=== PATIENT | male | born 1950 | race Caucasian/White ===

== ENCOUNTER 2022-11-04 11:22 | Outpatient (CLI) | payer MEDICARE, SELFPAY ==
--- NOTE | ~2022-11-04 | XR_ITS ---
XR hip LT min 2V DATE: 11/04/2022 11:36 INDICATION: Left hip pain, chronic TECHNIQUE: AP and lateral views of left hip COMPARISON: None FINDINGS: There is a left acetabular and femoral head spurring consistent with moderately prominent l eft hip osteoarthritis. No fracture or dislocation, avascular necrosis or bone destruction is detected. IMPRESSION: Moderately prominent left hip osteoarthritis Reviewed, dictated and finalized at location L. MATION TESTER
[2022-11-04 19:03] LABS: Basophils Absolute Auto 0.1 K/mm3 (0.0-0.1); Basophils Percent Auto 1.2 % (0.2-1.2); Eosinophils Absolute Auto 0.3 K/mm3 (0-0.3); Eosinophils Percent Auto 3.4 % (0-4.4); Hematocrit 51.3 % (42.0-52.0); Immature Granulocyte Absolute 0.01 K/mm3 (0.00-0.031); Immature Granulocyte Percent A 0.1 % (0-0.5); Immature Platelet Fraction Pct 15.6 % (0.9-11.2); Lymphocytes Absolute Auto 1.87 K/mm3 (0.9-3.2); Lymphocytes Percent Auto 22.5 % (18.3-44.2); Mean Corpuscular HGB Conc 31.2 g/dl (32-36); Mean Corpuscular Hemoglobin 29.1 pg (26-34); Mean Corpuscular Volume 93.4 fl (80-100); Mean Platelet Volume 13.1 fl (7.4-10.4); Monocytes Absolute Auto 0.6 K/mm3 (0.1-0.6); Monocytes Percent Auto 6.9 % (2.6-8.5); Neutrophils Absolute Auto 5.5 K/mm3 (1.3-6.7); Neutrophils Percent Auto 65.9 % (45.5-73.1); Platelet Count Result 44 k/mm3 (150-375); Red Blood Count 5.49 M/mm3 (4.6-6.20); Red Cell Distribution Width 13.6 % (11.5-14.5); White Blood Count 8.3 K/mm3 (4.5-10.0)
[2022-11-04 20:34] LABS: Cholesterol 150 mg/dL (0-200); HDL Direct 40 mg/dL; Triglycerides 153 mg/dL (<150)
[2022-11-04 20:45] LABS: LDL Cholesterol Direct 74 mg/dL
[2022-11-04 21:05] LABS: Alanine Aminotransferase 30 U/L (6-50); Albumin Level 4.4 g/dL (3.5-5.1); Alkaline Phosphatase 55 U/L (38-126); Anion Gap 4 mmol/L (8-16); Aspartate Amino Transferase 40 U/L (17-59); Bilirubin,Total 0.8 mg/dL (0.2-1.3); Blood Urea Nitrogen 11 mg/dL (9-20); Calcium 9.2 mg/dL (8.4-10.2); Carbon Dioxide 33 mmol/L (22-30); Chloride 102 mmol/L (98-107); Estimated Glomerular Filt Rate > 60; Glucose 94 mg/dL (65-110); Potassium 4.4 mmol/L (3.4-5.0); Sodium 139 mmol/L (137-145)
== END 2022-11-04 11:23 | disposition home or self-care (01) ==
PROVIDERS: PCP Family Medicine; Visit Provider Family Medicine
DX: M16.12 Unilateral primary osteoarthritis, left hip (principal); Z12.5 Encounter for screening for malignant neoplasm of prostate; E78.5 Hyperlipidemia, unspecified
CPT/HCPCS: 36415; 73502; 80053; 80061; 84153; 85025; 85055; G0103

== ENCOUNTER 2022-12-04 08:26 | Outpatient (CLI) | payer MEDICARE, SELFPAY ==
[2022-12-04 18:42] LABS: Basophils Absolute Auto 0.1 K/mm3 (0.0-0.1); Eosinophils Absolute Auto 0.2 K/mm3 (0-0.3); Eosinophils Percent Auto 2.4 % (0-4.4); Hemoglobin 16.2 g/dL (14.0-18.0); Immature Granulocyte Absolute 0.03 K/mm3 (0.00-0.031); Immature Granulocyte Percent A 0.3 % (0-0.5); Immature Platelet Fraction Pct 18.7 % (0.9-11.2); Lymphocytes Absolute Auto 2.29 K/mm3 (0.9-3.2); Lymphocytes Percent Auto 23.5 % (18.3-44.2); Mean Corpuscular HGB Conc 31.2 g/dl (32-36); Mean Corpuscular Hemoglobin 29.1 pg (26-34); Mean Corpuscular Volume 93.4 fl (80-100); Mean Platelet Volume 13.8 fl (7.4-10.4); Monocytes Absolute Auto 0.6 K/mm3 (0.1-0.6); Monocytes Percent Auto 6.1 % (2.6-8.5); Neutrophils Absolute Auto 6.5 K/mm3 (1.3-6.7); Neutrophils Percent Auto 66.7 % (45.5-73.1); Red Blood Count 5.57 M/mm3 (4.6-6.20); Red Cell Distribution Width 13.9 % (11.5-14.5); White Blood Count 9.8 K/mm3 (4.5-10.0)
[2022-12-04 19:41] LABS: Hepatitis B Surface Antigen Negative (Negative); Platelet Estimate Decreased (Adequate); Schistocytes None Seen (NORMAL)
[2022-12-04 19:46] LABS: HAV RESULT Negative (Negative); Hepatitis B Core IgM Result Negative (Negative)
[2022-12-04 19:58] LABS: Hepatitis C Virus Antibody Negative (Negative)
[2022-12-05 11:34] LABS: Platelet Count Result 22 k/mm3 (150-375)
[2022-12-08 13:02] LABS: HIV 1 2 Ag Ab 4th Gen w Rflxs Nonreactive (Nonreactive)
[2022-12-10 12:56] LABS: Testosterone Free 50.1 pg/mL (30.0-135.0); Testosterone Total 404 ng/dL (250-1100)
== END 2022-12-04 08:27 | disposition home or self-care (01) ==
PROVIDERS: PCP Family Medicine; Visit Provider Family Medicine
DX: R68.82 Decreased libido (principal); D69.6 Thrombocytopenia, unspecified; R10.13 Epigastric pain
CPT/HCPCS: 36415; 80074; 84402; 84403; 85025; 85055; 87389

== ENCOUNTER 2022-12-15 07:37 | Outpatient (CLI) | payer MEDICARE, SELFPAY ==
[2022-12-15 19:02] LABS: Basophils Absolute Auto 0.1 K/mm3 (0.0-0.1); Eosinophils Absolute Auto 0.2 K/mm3 (0-0.3); Eosinophils Percent Auto 2.6 % (0-4.4); Hematocrit 51.5 % (42.0-52.0); Hemoglobin 16.2 g/dL (14.0-18.0); Immature Granulocyte Absolute 0.03 K/mm3 (0.00-0.031); Immature Granulocyte Percent A 0.3 % (0-0.5); Immature Platelet Fraction Pct 17.9 % (0.9-11.2); Lymphocytes Absolute Auto 1.88 K/mm3 (0.9-3.2); Lymphocytes Percent Auto 20.3 % (18.3-44.2); Mean Corpuscular HGB Conc 31.5 g/dl (32-36); Mean Corpuscular Hemoglobin 28.9 pg (26-34); Mean Corpuscular Volume 91.8 fl (80-100); Mean Platelet Volume 13.1 fl (7.4-10.4); Monocytes Absolute Auto 0.5 K/mm3 (0.1-0.6); Monocytes Percent Auto 5.4 % (2.6-8.5); Neutrophils Absolute Auto 6.5 K/mm3 (1.3-6.7); Neutrophils Percent Auto 70.4 % (45.5-73.1); Platelet Count Result 31 k/mm3 (150-375); Red Blood Count 5.61 M/mm3 (4.6-6.20); Red Cell Distribution Width 13.9 % (11.5-14.5); White Blood Count 9.2 K/mm3 (4.5-10.0)
[2022-12-15 19:52] LABS: Alanine Aminotransferase 37 U/L (6-50); Albumin Level 4.2 g/dL (3.5-5.1); Alkaline Phosphatase 55 U/L (38-126); Anion Gap 4 mmol/L (8-16); Aspartate Amino Transferase 51 U/L (17-59); Bilirubin,Total 0.8 mg/dL (0.2-1.3); Blood Urea Nitrogen 11 mg/dL (9-20); Calcium 8.8 mg/dL (8.4-10.2); Carbon Dioxide 33 mmol/L (22-30); Chloride 101 mmol/L (98-107); Estimated Glomerular Filt Rate > 60; Glucose 96 mg/dL (65-110); Potassium 4.4 mmol/L (3.4-5.0); Sodium 138 mmol/L (137-145)
[2022-12-15 20:06] LABS: Iron 139 ug/dL (49-181)
[2022-12-15 20:25] LABS: Percent Iron Saturation 41 % (20-50)
[2022-12-15 20:53] LABS: Folic Acid 16.4 ng/mL (2.76->20)
[2022-12-21 18:21] LABS: Platelet Ab,Indirect (IgA) NEGATIVE (NEGATIVE); Platelet Ab,Indirect (IgG) NEGATIVE (NEGATIVE); Platelet Ab,Indirect (IgM) NEGATIVE (NEGATIVE)
== END 2022-12-15 07:38 | disposition home or self-care (01) ==
PROVIDERS: PCP Family Medicine; Visit Provider Internal Medicine Hematology & Oncology
DX: D69.59 Other secondary thrombocytopenia (principal)
CPT/HCPCS: 36415; 80053; 82607; 82728; 82746; 83540; 83550; 85025; 85055; 86022

== ENCOUNTER 2023-01-08 07:55 | Outpatient (CLI) | payer MEDICARE, SELFPAY ==
--- NOTE | ~2023-01-08 | US_ITS ---
US abdomen complete EXAMINATION: US Abdomen Complete INDICATION: Thrombocytopenia PROCEDURE: Realtime High Resolution abdomen ultrasound. COMPARISON: No prior studies for comparison FINDINGS: Gallbladder within normal limits. No gallstones, pericholecystic fluid, gallbladder wall t hickening or biliary dilatation. Common bile duct measures 4 mm. Liver echotexture is increased, consistent with fatty infiltration.. Pancreas within normal limits. Pancreatic tail is obscured by bowel gas. Spleen is unremarkeable. Renal echotexture is within norm al limits bilaterally without hydronephrosis, contour deforming mass or renal stone. There is a 1.7 c m cyst at the upper pole of the right kidney. Right kidney measures 10.5 cm. Left kidney measures 11. 6 cm. There is a 3 cm infrarenal abdominal aortic aneurysm.. Portal vein is patent. No sonographic Barrios's sign indicated by the technologist. IMPRESSION: 1: Infrarenal abdominal aortic aneurysm measuring 3 cm. 2: Hepatic steatosis. Reviewed, dictated and finalized at location .
== END 2023-01-08 07:56 | disposition home or self-care (01) ==
PROVIDERS: PCP Family Medicine; Visit Provider Internal Medicine Hematology & Oncology
DX: D69.59 Other secondary thrombocytopenia (principal); K76.0 Fatty (change of) liver, not elsewhere classified; I71.43 Infrarenal abdominal aortic aneurysm, without rupture
CPT/HCPCS: 36415; 76700; 80053; 82607; 82728; 82746; 83540; 83550; 85025; 85055; 86023

== ENCOUNTER 2023-01-08 09:00 | Outpatient (CLI) | payer MEDICARE, SELFPAY ==
[2023-01-08 09:24] LABS: White Blood Count 9.9 K/mm3 (4.5-10.0)
[2023-01-08 09:25] LABS: Basophils Absolute Auto 0.1 K/mm3 (0.0-0.1); Basophils Percent Auto 0.8 % (0.2-1.2); Eosinophils Absolute Auto 0.4 K/mm3 (0-0.3); Eosinophils Percent Auto 3.9 % (0-4.4); Hematocrit 47.8 % (42.0-52.0); Hemoglobin 15.4 g/dL (14.0-18.0); Immature Granulocyte Absolute 0.02 K/mm3 (0.00-0.031); Immature Granulocyte Percent A 0.2 % (0-0.5); Immature Platelet Fraction Pct 15.2 % (0.9-11.2); Lymphocytes Absolute Auto 2.13 K/mm3 (0.9-3.2); Lymphocytes Percent Auto 21.5 % (18.3-44.2); Mean Corpuscular HGB Conc 32.2 g/dl (32-36); Mean Corpuscular Hemoglobin 29.2 pg (26-34); Mean Corpuscular Volume 90.7 fl (80-100); Mean Platelet Volume 12.8 fl (7.4-10.4); Monocytes Absolute Auto 0.7 K/mm3 (0.1-0.6); Monocytes Percent Auto 6.7 % (2.6-8.5); Neutrophils Absolute Auto 6.6 K/mm3 (1.3-6.7); Neutrophils Percent Auto 66.9 % (45.5-73.1); Platelet Count Result 34 k/mm3 (150-375); Red Blood Count 5.27 M/mm3 (4.6-6.20); Red Cell Distribution Width 13.2 % (11.5-14.5)
[2023-01-08 10:03] LABS: Alanine Aminotransferase 35 U/L (6-50); Albumin Level 4.3 g/dL (3.5-5.1); Alkaline Phosphatase 54 U/L (38-126); Anion Gap 7 mmol/L (8-16); Aspartate Amino Transferase 31 U/L (17-59); Bilirubin,Total 0.6 mg/dL (0.2-1.3); Blood Urea Nitrogen 11 mg/dL (9-20); Calcium 8.8 mg/dL (8.4-10.2); Carbon Dioxide 31 mmol/L (22-30); Chloride 102 mmol/L (98-107); Estimated Glomerular Filt Rate > 60; Glucose 102 mg/dL (65-110); Potassium 4.2 mmol/L (3.4-5.0); Sodium 140 mmol/L (137-145)
[2023-01-08 11:07] LABS: Iron 98 ug/dL (49-181)
[2023-01-08 11:17] LABS: Percent Iron Saturation 29 % (20-50)
[2023-01-08 12:20] LABS: Folic Acid 19.3 ng/mL (2.76->20)
== END 2023-01-08 09:01 | disposition home or self-care (01) ==
LOC: ANHLAB 09:01
PROVIDERS: PCP Family Medicine; Visit Provider Internal Medicine Hematology & Oncology
DX: D69.59 Other secondary thrombocytopenia (principal)
CPT/HCPCS: 36415; 80053; 82607; 82728; 82746; 83540; 83550; 85025; 85055; 86023

== ENCOUNTER 2023-04-21 12:56 | Outpatient (CLI) | payer MEDICARE, SELFPAY ==
[2023-04-21 13:08] LABS: Basophils Absolute Auto 0.1 K/mm3 (0.0-0.1); Basophils Percent Auto 1.2 % (0.2-1.2); Eosinophils Absolute Auto 0.3 K/mm3 (0-0.3); Eosinophils Percent Auto 3.8 % (0-4.4); Hematocrit 46.6 % (42.0-52.0); Hemoglobin 15.2 g/dL (14.0-18.0); Immature Granulocyte Absolute 0.02 K/mm3 (0.00-0.031); Immature Granulocyte Percent A 0.2 % (0-0.5); Lymphocytes Absolute Auto 2.27 K/mm3 (0.9-3.2); Lymphocytes Percent Auto 27.9 % (18.3-44.2); Mean Corpuscular HGB Conc 32.6 g/dl (32-36); Mean Corpuscular Hemoglobin 29.6 pg (26-34); Mean Corpuscular Volume 90.7 fl (80-100); Mean Platelet Volume 12.5 fl (7.4-10.4); Monocytes Absolute Auto 0.6 K/mm3 (0.1-0.6); Monocytes Percent Auto 7.9 % (2.6-8.5); Neutrophils Absolute Auto 4.8 K/mm3 (1.3-6.7); Platelet Count Result 52 k/mm3 (150-375); Red Blood Count 5.14 M/mm3 (4.6-6.20); White Blood Count 8.1 K/mm3 (4.5-10.0)
== END 2023-04-21 12:57 | disposition home or self-care (01) ==
LOC: ANHLAB 12:59
PROVIDERS: PCP Family Medicine; Visit Provider Internal Medicine Hematology & Oncology
DX: D69.59 Other secondary thrombocytopenia (principal)
CPT/HCPCS: 36415; 85025

== ENCOUNTER 2023-08-05 10:09 | Outpatient (CLI) | payer MEDICARE, SELFPAY ==
[2023-08-05 10:27] LABS: Basophils Absolute Auto 0.1 K/mm3 (0.0-0.1); Basophils Percent Auto 1.1 % (0.2-1.2); Eosinophils Absolute Auto 0.4 K/mm3 (0-0.3); Eosinophils Percent Auto 4.1 % (0-4.4); Hemoglobin 15.6 g/dL (14.0-18.0); Immature Granulocyte Absolute 0.03 K/mm3 (0.00-0.031); Immature Granulocyte Percent A 0.4 % (0-0.5); Lymphocytes Absolute Auto 1.89 K/mm3 (0.9-3.2); Lymphocytes Percent Auto 22.4 % (18.3-44.2); Mean Corpuscular HGB Conc 32.5 g/dl (32-36); Mean Corpuscular Hemoglobin 29.3 pg (26-34); Mean Corpuscular Volume 90.2 fl (80-100); Mean Platelet Volume 12.3 fl (7.4-10.4); Monocytes Absolute Auto 0.6 K/mm3 (0.1-0.6); Monocytes Percent Auto 7.1 % (2.6-8.5); Neutrophils Absolute Auto 5.5 K/mm3 (1.3-6.7); Neutrophils Percent Auto 64.9 % (45.5-73.1); Platelet Count Result 63 k/mm3 (150-375); Red Blood Count 5.32 M/mm3 (4.6-6.20); Red Cell Distribution Width 13.1 % (11.5-14.5); White Blood Count 8.5 K/mm3 (4.5-10.0)
[2023-08-05 10:32] LABS: Blood Urea Nitrogen 10 mg/dL (8-26); Carbon Dioxide 26 mmol/L (22-30); Chloride 101 mmol/L (98-109); Estimated Glomerular Filt Rate > 60; Glucose 103 mg/dL (70-105); Ionized Calcium (POC) 1.18 mmol/L (1.11-1.31); Potassium 4.2 mmol/L (3.5-4.9); Sodium 139 mmol/L (138-146)
[2023-08-05 17:03] LABS: Alanine Aminotransferase 27 U/L (6-50); Albumin Level 4.2 g/dL (3.5-5.1); Alkaline Phosphatase 64 U/L (38-126); Anion Gap 9 mmol/L (8-16); Aspartate Amino Transferase 32 U/L (17-59); Bilirubin,Total 0.7 mg/dL (0.2-1.3); Blood Urea Nitrogen 11 mg/dL (9-20); Calcium 9.4 mg/dL (8.4-10.2); Carbon Dioxide 26 mmol/L (22-30); Chloride 101 mmol/L (98-107); Estimated Glomerular Filt Rate > 60; Glucose 102 mg/dL (65-110); Potassium 4.3 mmol/L (3.4-5.0); Sodium 136 mmol/L (137-145)
== END 2023-08-05 10:10 | disposition home or self-care (01) ==
LOC: ANHLAB 10:11
PROVIDERS: PCP Family Medicine; Visit Provider Internal Medicine Hematology & Oncology
DX: D69.59 Other secondary thrombocytopenia (principal)
CPT/HCPCS: 36415; 80047; 80053; 85025

== ENCOUNTER 2023-10-12 09:06 | Outpatient (CLI) | payer MEDICARE, SELFPAY ==
--- NOTE | ~2023-10-12 | XR_ITS ---
Left Shoulder Technique: AP and scapular Y views were obtained. Clinical History: Pain Findings: No fracture or dislocation is seen. Osseous alignment is anatomic. The glenohumeral and acr omioclavicular joint spaces are preserved. Soft tissues are unremarkable. Impression: Unremarkable left shoulder radiographs. Reviewed, dictated and finalized at [facility]. 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
== END 2023-10-12 09:07 | disposition home or self-care (01) ==
PROVIDERS: PCP Family Medicine; Visit Provider Family Medicine
DX: M25.512 Pain in left shoulder (principal)
CPT/HCPCS: 73030

== ENCOUNTER 2024-02-08 09:19 | Outpatient (CLI) | payer MEDICARE, SELFPAY ==
[2024-02-08 18:50] LABS: Basophils Absolute Auto 0.1 K/mm3 (0.0-0.1); Eosinophils Absolute Auto 0.3 K/mm3 (0-0.3); Eosinophils Percent Auto 3.4 % (0-4.4); Hematocrit 50.5 % (42.0-52.0); Hemoglobin 15.7 g/dL (14.0-18.0); Immature Granulocyte Absolute 0.02 K/mm3 (0.00-0.031); Immature Granulocyte Percent A 0.2 % (0-0.5); Immature Platelet Fraction Pct 17.4 % (0.9-11.2); Lymphocytes Absolute Auto 2.08 K/mm3 (0.9-3.2); Lymphocytes Percent Auto 24.2 % (18.3-44.2); Mean Corpuscular HGB Conc 31.1 g/dl (32-36); Mean Corpuscular Hemoglobin 29.1 pg (26-34); Mean Corpuscular Volume 93.5 fl (80-100); Mean Platelet Volume 13.1 fl (7.4-10.4); Monocytes Absolute Auto 0.6 K/mm3 (0.1-0.6); Monocytes Percent Auto 7.2 % (2.6-8.5); Neutrophils Absolute Auto 5.5 K/mm3 (1.3-6.7); Platelet Count Result 44 k/mm3 (150-375); Red Cell Distribution Width 13.8 % (11.5-14.5); White Blood Count 8.6 K/mm3 (4.5-10.0)
[2024-02-08 18:57] LABS: Alanine Aminotransferase 26 U/L (6-50); Albumin Level 4.5 g/dL (3.5-5.1); Alkaline Phosphatase 58 U/L (38-126); Anion Gap 3 mmol/L (4-12); Aspartate Amino Transferase 43 U/L (17-59); Bilirubin,Total 0.9 mg/dL (0.2-1.3); Blood Urea Nitrogen 12 mg/dL (9-20); Calcium 9.4 mg/dL (8.4-10.2); Carbon Dioxide 32 mmol/L (22-30); Chloride 103 mmol/L (98-107); Cholesterol 159 mg/dL (0-200); Estimated Glomerular Filt Rate > 60; Glucose 95 mg/dL (65-110); HDL Direct 47 mg/dL; Potassium 4.2 mmol/L (3.4-5.0); Sodium 138 mmol/L (137-145); Triglycerides 184 mg/dL (<150)
[2024-02-08 19:08] LABS: LDL Cholesterol Direct 86 mg/dL
[2024-02-08 19:27] LABS: Prostate Specific Antigen 1.4 ng/mL (< OR = 4.0)
[2024-02-12 16:03] LABS: Testosterone Free 55.9 pg/mL (30.0-135.0); Testosterone Total 417 ng/dL (250-1100)
== END 2024-02-08 09:20 | disposition home or self-care (01) ==
LOC: ANHBWCLAB 09:26
PROVIDERS: Family Medicine; PCP Nurse Practitioner Adult Health
DX: Z00.00 Encounter for general adult medical examination without abnormal findings (principal); D69.6 Thrombocytopenia, unspecified; I10 Essential (primary) hypertension; M70.60 Trochanteric bursitis, unspecified hip; N52.9 Male erectile dysfunction, unspecified; Z12.5 Encounter for screening for malignant neoplasm of prostate; R10.9 Unspecified abdominal pain
CPT/HCPCS: 36415; 80053; 80061; 84153; 84402; 84403; 85025; 85055; G0103

== ENCOUNTER 2024-08-03 11:17 | Outpatient (CLI) | payer MEDICARE, SELFPAY ==
[2024-08-03 11:42] LABS: Basophils Absolute Auto 0.1 K/mm3 (0.0-0.1); Basophils Percent Auto 0.8 % (0.2-1.2); Eosinophils Absolute Auto 0.3 K/mm3 (0-0.3); Eosinophils Percent Auto 2.9 % (0-4.4); Hematocrit 46.7 % (42.0-52.0); Hemoglobin 15.1 g/dL (14.0-18.0); Immature Granulocyte Absolute 0.03 K/mm3 (0.00-0.031); Immature Granulocyte Percent A 0.3 % (0-0.5); Immature Platelet Fraction Pct 15.4 % (0.9-11.2); Lymphocytes Absolute Auto 2.25 K/mm3 (0.9-3.2); Lymphocytes Percent Auto 23.8 % (18.3-44.2); Mean Corpuscular HGB Conc 32.3 g/dl (32-36); Mean Corpuscular Hemoglobin 29.9 pg (26-34); Mean Corpuscular Volume 92.5 fl (80-100); Mean Platelet Volume 12.3 fl (7.4-10.4); Monocytes Absolute Auto 0.7 K/mm3 (0.1-0.6); Neutrophils Absolute Auto 6.2 K/mm3 (1.3-6.7); Neutrophils Percent Auto 65.2 % (45.5-73.1); Platelet Count Result 49 k/mm3 (150-375); Red Blood Count 5.05 M/mm3 (4.6-6.20); Red Cell Distribution Width 12.6 % (11.5-14.5); White Blood Count 9.5 K/mm3 (4.5-10.0)
[2024-08-03 11:43] LABS: Blood Urea Nitrogen 10 mg/dL (8-26); Carbon Dioxide 30 mmol/L (22-30); Chloride 97 mmol/L (98-109); Estimated Glomerular Filt Rate > 60; Glucose 103 mg/dL (70-105); Ionized Calcium (POC) 1.19 mmol/L (1.11-1.31); Potassium 4.1 mmol/L (3.5-4.9); Sodium 139 mmol/L (138-146)
[2024-08-03 20:55] LABS: Alanine Aminotransferase 19 U/L (6-50); Albumin Level 4.1 g/dL (3.5-5.1); Alkaline Phosphatase 57 U/L (38-126); Anion Gap 5 mmol/L (4-12); Aspartate Amino Transferase 29 U/L (17-59); Bilirubin,Total 0.7 mg/dL (0.2-1.3); Blood Urea Nitrogen 11 mg/dL (9-20); Calcium 9.2 mg/dL (8.4-10.2); Carbon Dioxide 29 mmol/L (22-30); Chloride 101 mmol/L (98-107); Estimated Glomerular Filt Rate > 60; Glucose 101 mg/dL (65-110); Potassium 4.2 mmol/L (3.4-5.0); Sodium 135 mmol/L (137-145)
== END 2024-08-03 11:18 | disposition home or self-care (01) ==
LOC: ANHLAB 11:18
PROVIDERS: PCP Nurse Practitioner Adult Health; Visit Provider Internal Medicine Hematology & Oncology
DX: D69.59 Other secondary thrombocytopenia (principal)
CPT/HCPCS: 36415; 80047; 80053; 85025; 85055

== ENCOUNTER 2024-10-17 15:32 | Outpatient (CLI) | payer MEDICARE, SELFPAY ==
[2024-10-17 15:47] LABS: Basophils Absolute Auto 0.1 K/mm3 (0.0-0.1); Eosinophils Absolute Auto 0.3 K/mm3 (0-0.3); Eosinophils Percent Auto 3.6 % (0-4.4); Hematocrit 46.3 % (42.0-52.0); Hemoglobin 14.6 g/dL (14.0-18.0); Immature Granulocyte Absolute 0.02 K/mm3 (0.00-0.031); Immature Granulocyte Percent A 0.2 % (0-0.5); Lymphocytes Absolute Auto 2.45 K/mm3 (0.9-3.2); Lymphocytes Percent Auto 28.3 % (18.3-44.2); Mean Corpuscular HGB Conc 31.5 g/dl (32-36); Mean Corpuscular Hemoglobin 28.9 pg (26-34); Mean Corpuscular Volume 91.5 fl (80-100); Mean Platelet Volume 12.4 fl (7.4-10.4); Monocytes Absolute Auto 0.8 K/mm3 (0.1-0.6); Monocytes Percent Auto 9.2 % (2.6-8.5); Neutrophils Percent Auto 57.7 % (45.5-73.1); Platelet Count Result 78 k/mm3 (150-375); Red Blood Count 5.06 M/mm3 (4.6-6.20); Red Cell Distribution Width 12.7 % (11.5-14.5); White Blood Count 8.7 K/mm3 (4.5-10.0)
[2024-10-17 15:50] LABS: Blood Urea Nitrogen 9 mg/dL (8-26); Carbon Dioxide 31 mmol/L (22-30); Chloride 99 mmol/L (98-109); Estimated Glomerular Filt Rate > 60; Glucose 103 mg/dL (70-105); Ionized Calcium (POC) 1.18 mmol/L (1.11-1.31); Sodium 140 mmol/L (138-146)
--- OUTSIDE RECORDS SUMMARY | 2024-10-17 18:06 | XMS_ITS | Continuity of Care Document ---
Author Organization [facility]. If a dditional information is needed, contact Health Information Management at [phone] Address [address] [place] [address] Phone Care Team Providers Care Heel Builder Name Role Phone Unavailable Unavailable Unavailable Unavailable Unavailable Unavailable Unavailable Unavailable Unavailable Problems Indigestion Onset:12-Nov-2022 Calin Mneezes MD Allergies and Adverse Reactions No Known Drug Allergies(Melo rgy) Onset: 12-Nov-2022 Medications labetalol hydrochloride 5 MG /ML Injectable Solution;80 MILLIGRAM X3ED Quantity:1 Calin Menezes MD Start:12-Nov-2022 Status:Discontinued Comments:[id number] labetalol hydrochloride 5 MG /ML Injectable Solution;10 MILLIGRAM X3ED Quantity:1 Calin Menezes MD Start:12-Nov-2022 Status:Discontinued Comments:[id number] aspirin 81 MG Chewable Table t [Liz Aspirin];81 MILLIGRAM PO DAILY Start:12-Nov-2022 Comments:81 MG PO DAILY lisinopril 40 MG Oral Tablet ;40 MILLIGRAM PO DAILY Start:12-Nov-2022 Comments:40 MG PO DAILY 0.8 ML adalimumab 50 MG/ML P refilled Syringe [Humira];40 MILLIGRAM SUBCUTANEOUS Q14D Start:12-Nov-2022 Comments:40 MG SUBQ Q14D Social History Smoking Status Never smoked tobacco Recorded: 12-Nov-2022
--- OUTSIDE RECORDS SUMMARY | 2024-10-17 18:06 | XMS_ITS | Encounter Summary ---
Author Organization [facility] Address [address] [place] [address] Phone Care Team Providers Care Astrochemist Name Role Phone Manuel Andrews MD Primary Care Provider [phone] Sunita Montano LPN Unavailable [phone] Arianne Cabrera NP Primary Care Provider [phone] Encounter Details Date Type Department Care Team (Late st Contact Info) Description 01/14/2018 Orders Only [facility] ProviderNighat MD [facility] [place] [address] Social History Tobacco Use Types Packs/Day Years Used Date Smoking Tobacco: Former Smokeless Tobacco: Never Alcohol Use Standard Drinks/Week Comments Yes 0 (1 standard drink = 0.6 oz pur e alcohol) Sex and Gender Information Value Date Recorded Sex Assigned at Not on file Legal Sex 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 us Historical Provider LAB BLOOD ORDERABLES Trena l Result documented in this encounter Visit Diagnoses Not on filedocumented in this encounter Care Teams Astrochemist Relationship Specialty Start Date End Date Manuel Andrews MD [address] [place] [address] PCP - General 01/12/12 04/13/24 Arianne Cabrera NP [address] [place] [address] PCP - General Nurse Practitioner 04/14/24 Sunita Montano, CLIENT ADVISOR [address] [place] [address] [address] [place] [address] ACO Care Enrollment Management Manager 07/11/21 07/15/21 documented as of this encounter
--- OUTSIDE RECORDS SUMMARY | 2024-10-17 18:06 | XMS_ITS | Clinical Summary ---
Author Organization [facility] lt Address [address] [place] [address] [place] [address] Care Team Providers Care Master Brewer Name Role Phone Arianne Cabrera NP Primary Care Provider [phone] Allergies No known active allergies Medications folic acid (FOLVITE) 400 mcg tablet take 1 tablet (0.4MG) by oral route every day 0 07/21/20 11 Active Additional Information Patient taking differently: 800 mcg, Reported on 11/13/2021 aspirin 81 mg tablet take 1 tablet (81MG) by ORAL route every day 0 01/15/20 10 Active cyanocobalamin (Vitamin B-12) 1,000 mcg tabletIndications: Prevention of Vitamin B12 Deficiency Take 1,000 mcg by mouth daily. Active acetaminophen (TYLENOL) 500 mg tablet Take by mouth every 4 (four) hours as needed Active pantoprazole DR (PROTONIX) 40 mg EC tablet TAKE 1 TABLET BY MOUTH TWICE A DAY 180 tablet 1 05/27/20 21 Active clonazePAM (KlonoPIN) 0.5 mg tablet Take 1 tablet (0.5 mg total) by mouth 3 (three) times a day as needed for anxiety 30 tablet 07/15/20 21 Active methotrexate 2.5 mg tabletIndications: psoriatic arthritis TAKE 6 TABLETS BY MOUTH 1 TIME PER WEEK. 72 tablet 02/04/20 22 Active atorvastatin (LIPITOR) 40 mg tabletIndications: Mixed hyperlipidemia TAKE 1 TABLET BY MOUTH EVERY DAY 30 tablet 11/28/19 23 Active lisinopriL (PRINIVIL,ZESTRIL) 40 mg tablet TAKE 1/2 TABLET BY MOUTH EVERY MORNING AND EVENING - MONITOR BLOOD PRESSURE IN MORNING 90 tablet 01/31/20 23 Active Active Problems Problem Noted Date Diagnosed Date Class 2 severe obesity due t o excess calories with serious comorbidity and body mass index (BMI) of 38.0 to 38.9 in adult 08/14/2021 Assessment & Plan (08/14/2021 8:52 AM OCCUPATIONAL THERAPY DEPARTMENT CHAIR): Reviewed need to lose weight, reviewed health benefits. Reviewed recommendations for daily intake & activity 20-30 minutes/day. Discussed healthy diet and importance of regular physical activity. Encounter for Medicare annual wellness exam 07/01 Assessment & Plan (08/11/2021 10:51 AM OCCUPATIONAL THERAPY DEPARTMENT CHAIR): 1. Eat a healthy diet: focus on lean meats and proteins, more fruits, vegetables and whole grains and low in sugars and fats. Limit red meat and avoid processed meat. 2. Maintain a healthy weight; avoid being overweight. Aim for a normal body mass index (BMI) of 18.5-24.9. Help learning to eat healthier, we can set up appointment with male infertility specialist/jewelry sorter. 3. Have an active lifestyle, strive for 30 minutes of moderate exercise 5 times a week and strength or resistance training at least twice a week. 4. Use broad-spectrum (UVA+UVB) sunscreen with SPF 30 or greater, is water resistant, limit time spent in the sun (10 am-4pm), wear hat, wear UV protective clothing, wear sunglasses. Never use a tanning bed. Skin that was irradiated may be more sensitive over your lifetime. 5. Does not smoke or chew tobacco. 6. Limit alcohol intake, 2 drinks per day for a man. Mixed hyperlipidemia 11/04/2019 Assessment & Plan (08/11/2021 10:57 AM OCCUPATIONAL THERAPY DEPARTMENT CHAIR): Atorvastatin 40mg daily. Denies myalgias. 02/21/20 MD=344 HDL=39 NJ=084 EKH=205 TC/HDL=6.0 02/22/21 BA=304 HDL=42 GL=191 LDL=86 TC/HDL=4 ZNHJOO=015 04/30/21 UW=243 HDL=43 ED=978 LDL=88 TC/HDL=4 TPNYZO=[id number] We will check labs and make adjustments to medications as needed. Patient should focus on limiting bad fats in the diet and using exercise as a way to improve the lipid status. Secondary prevention. Reviewed medications. Lipid panel ordered; will call w/results when rec'd. Denies any statin Ses. Reviewed diet/exercise recommendations. Reviewed red flags. Assessment & Plan (02/21/2020 10:27 AM CDT): Worsening of lipid panel on our poct lipid even w/great improvement in lifestyle. Will have lipid drawn at lab. We will check labs and make adjustments to medications as needed. Patient should focus on limiting bad fats in the diet and using exercise as a way to improve the lipid status. Secondary prevention. Reviewed medications. Lipid panel ordered; will call w/results when rec'd. Denies any statin Ses. Reviewed diet/exercise recommendations. Reviewed red flags. Assessment & Plan (11/04/2019 10:45 AM OCCUPATIONAL THERAPY DEPARTMENT CHAIR): 04/29/19 JS=940 HDL=38 CR=130 WEH=993 TC/HDL=6.2 ezp=519 11/04/19 YT=800 HDL=41 DS=145 SBA=765 TC/HDL=5.8 NYW=759 Copy of results given to Mr Tyson as well as written explanation. Stressed need for lifestyle/dietary changes. Atorvastatin 40mg sent. Reviewed med SE & scheduling. To make f/u appt in 3 mos; to have labs drawn few days prior to appt. Esophageal reflux 08/02/2019 Assessment & Plan (08/11/2021 10:52 AM OCCUPATIONAL THERAPY DEPARTMENT CHAIR): Pantoprazole 40mg daily. Reviewed provocative foods to avoid: caffeine, citrus, ETOH, carbonated drinks, fried/fatty/fast foods & rich/creamy sauces. Reviewed diet/exercise recommendations: 20-30min physicaly activity daily at minimum. Reviewed med Ses & scheduling. Weight loss will help improve GERD sxs. Keep HOB elevated 30 degrees & not eat 2-3 hrs before bedtime. Assessment & Plan (02/21/2020 10:27 AM CDT): Taking pantoprazole. Has done great job w/wt loss since October 2019. Reviewed provocative foods to avoid: caffeine, citrus, ETOH, carbonated drinks, fried/fatty/fast foods & rich/creamy sauces. Reviewed diet/exercise recommendations: 20-30min physicaly activity daily at minimum. Reviewed med Ses & scheduling. Weight loss will help improve GERD sxs. Keep HOB elevated 30 degrees & not eat 2-3 hrs before bedtime. Assessment & Plan (11/04/2019 10:41 AM OCCUPATIONAL THERAPY DEPARTMENT CHAIR): Continues on pantoprazole for GERD. Last filled 08/26/19 w/5RF. Stressed need to lose weight. Reviewed provocative foods to avoid: caffeine, citrus, ETOH, carbonated drinks, fried/fatty/fast foods & rich/creamy sauces. Reviewed diet/exercise recommendations: 20-30min physicaly activity daily at minimum. Reviewed med Ses & scheduling. Weight loss will help improve GERD sxs. Keep HOB elevated 30 degrees & not eat 2-3 hrs before bedtime. Assessment & Plan (08/21/2019 5:19 PM OCCUPATIONAL THERAPY DEPARTMENT CHAIR): Likely cause of current chest pain. Was previously well controlled with Prilosec, but this had to be stopped when he started methotrexate for psoriatic arthritis. Assessment & Plan (08/02/2019 11:57 AM OCCUPATIONAL THERAPY DEPARTMENT CHAIR): Instructed on GERD diet and to use [id number]-[id number] calcium carbonate as needed. Restrict caffeine 5 hours before bed. Do not eat 3 hours before bedtime. Cervicalgia 04/29/2019 Assessment & Plan (04/29/2019 10:02 AM CDT): Referral to Dr Valenzuela at [facility] entered per his request. Aware that Dr Valenzuela's office will call to set up appt Long-term use of high-risk medication 04/07/2019 Assessment & Plan (04/07/2019 11:30 PM CDT): Patient on immunosuppressive medications requiring periodic lab monitoring for drug safety. History of colon polyps 03/12/2018 Overview (03/12/2018): Added automatically from request for surgery [id number] Psoriasis with arthropathy 01/14/2014 Overview (12/04/2016): Psoriatic arthritis Assessment & Plan (08/14/2021 9:38 AM OCCUPATIONAL THERAPY DEPARTMENT CHAIR): Had been managed by Dr Roland tSoll but too far to travel. MTX 15mg weekly. Has new pt appt w/Dr Valentino at [facility] 01/2022. Has been seeing Dr Janette Palomo (derm) & she plans to start him on Humira. Assessment & Plan (02/20/2020 10:18 PM CDT): Followed by Dr Roland Stoll (rheum). Next office visit 03/30/20 Assessment & Plan (11/04/2019 10:40 AM OCCUPATIONAL THERAPY DEPARTMENT CHAIR): Continues to be followed by Dr Roland Stoll (rheum). KASANDRA 07/05/19. Assessment & Plan (04/07/2019 11:27 PM CDT): Images from the original note were not included. PsA clinically stable on methotrexate (4 tabs). Denies medication side effects. Continue present regimen Hypertension 01/14/2014 Overview (12/04/2016): BP (high blood pressure) Assessment & Plan (08/11/2021 10:55 AM OCCUPATIONAL THERAPY DEPARTMENT CHAIR): Lisinopril 40mg daily. The blood pressure is under good control. Ideally it should be under 130/80. Continue medications without adjustment. Continue efforts to eat well (4-5 fruits and veggies) daily and exercise for about 30 min nearly every day. Watch salt intake, keeping to less than 2000mg per day. Limit alcohol. Include strategies to cope with stress. Assessment & Plan (02/20/2020 10:18 PM CDT): The blood pressure is under good control. Ideally it should be under 130/80. Continue medications without adjustment. Continue efforts to eat well (4-5 fruits and veggies) daily and exercise for about 30 min nearly every day. Watch salt intake, keeping to less than 2000mg per day. Limit alcohol. Include strategies to cope with stress. Labs ordered today; will contact w/results once received. Assessment & Plan (11/04/2019 10:40 AM OCCUPATIONAL THERAPY DEPARTMENT CHAIR): The blood pressure is under good control. Ideally it should be under 130/80. Continue medications without adjustment. Continue efforts to eat well (4-5 fruits and veggies) daily and exercise for about 30 min nearly every day. Watch salt intake, keeping to less than 2000mg per day. Labs ordered today; will contact w/results once received. Assessment & Plan (08/21/2019 5:16 PM OCCUPATIONAL THERAPY DEPARTMENT CHAIR): Continue home lisinopril. Assessment & Plan (12/16/2017 1:07 PM CDT): Hypertension is improving with treatment. Dietary sodium restriction. Weight loss. Regular aerobic exercise. Medication changes per orders. Blood pressure will be reassessed in 3 months. Will increase his lisinopril to 20 mg in am and 20mg in pm-Pt to monitor BP and bring in readings to next visit. Talked to him again at length about the effects of ADRIANA on BP, heart, brain and kidneys. Encouraged him again to get a sleep study-he will consider after his vacation in [place] Assessment & Plan (11/24/2017 9:19 AM CDT): Hypertension is unchanged. Continue current treatment regimen. Blood pressure will be reassessed in 3 months.Lifestyle changes can help you control and prevent high blood pressure, even if you're taking blood pressure medication. Here's what you can do: Eat healthy foods. Eat a healthy diet. Try the Dietary Approaches to Stop Hypertension (DASH) diet, which emphasizes fruits, vegetables, whole grains, poultry, fish and low-fat dairy foods. Get plenty of potassium, which can help prevent and control high blood pressure. Eat less saturated fat and trans fat. Decrease the salt in your diet. A lower sodium level -- 1,500 milligrams (mg) a day -- is appropriate for people 51 years of age or older, and individuals of any age who are black or who have hypertension, diabetes or chronic kidney disease. Maintain a healthy weight. Keeping a healthy weight, or losing weight if you're overweight or obese, can help you control your high blood pressure and lower your risk of related health problems. If you're overweight, losing even 5 pounds (2.3 kilograms) can lower your blood pressure. Increase physical activity. Regular physical activity can help lower your blood pressure, manage stress, reduce your risk of several health problems and keep your weight under control. Limit alcohol. Even if you're healthy, alcohol can raise your blood pressure. If you choose to drink alcohol, do so in moderation. For healthy adults, that means up to one drink a day for women of all ages and men older than age 65, and up to two drinks a day for men age 65 and younger. One drink equals 12 ounces of beer, 5 ounces of wine or 1.5 ounces of 80-proof liquor. Don't smoke. Tobacco injures blood vessel arrington and speeds up the process of hardening of the arteries. If you smoke, ask your doctor to help you quit. Manage stress. Reduce stress as much as possible. Practice healthy coping techniques, such as muscle relaxation, deep breathing or meditation. Getting regular physical activity and plenty of sleep can help, too. Notify the office for blood pressure greater than 140/90 Thrombocytopenia 01/14/2014 Overview (12/04/2016): Thrombocytopenia Assessment & Plan (04/07/2019 11:29 PM CDT): Stable. Uncertain etiology. Following with Dr. Tam (Hem/Onc). Idiopathic thrombocytopenic purpura 12/19/2011 Assessment & Plan (08/21/2019 5:17 PM OCCUPATIONAL THERAPY DEPARTMENT CHAIR): Monitored regularly as an outpatient. 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 Overview (07/05/2021): Overview: Psoriasis developed at age 50 and while rash has improved with MTX Sacroiliitis Psoriasis and enthesitis on Xray and exam History of inflammatory back pain and good but partial response to NSAIDs 06/07/2014 he has Chronic right hip pain and foot pain due to enthesopathy related to his inflammatory illness he is PPD negative as of 2 months ago and will start a tumor necrosis factor alpha blocking medication along with methotrexate soon Psoriasis developed at age 50 and while rash has improved with MTX Sacroiliitis Psoriasis and enthesitis on Xray and exam History of inflammatory back pain and good but partial response to NSAIDs 06/07/2014 he has Chronic right hip pain and foot pain due to enthesopathy related to his inflammatory illness he is PPD negative as of 2 months ago and will start a tumor necrosis factor alpha blocking medication along with methotrexate soon Assessment & Plan (08/21/2019 5:19 PM OCCUPATIONAL THERAPY DEPARTMENT CHAIR): Continue home methotrexate (taken on ). Assessment & Plan (04/29/2019 9:55 AM CDT): Follows w/Dr Tammy Stoll. Resolved Problems Problem Noted Date Diagnosed Date Resolved Date BMI 38.0-38.9,adult 02/21/2020 07/10/20 21 Assessment & Plan (02/21/2020 10:26 AM CDT): Was 282# October, now 253#. Congratulated on lifestyle changes. Mr Tyson very motivated to continue. Reviewed need to lose weight, reviewed health benefits. Reviewed recommendations for daily intake & activity 20-30 minutes/day. Discussed healthy diet and importance of regular physical activity. Esophagitis 08/21/2019 07/10/2021 Overview (08/22/2019): Added automatically from request for surgery [id number] Other chest pain 08/02/2019 07/10/2021 Assessment & Plan (08/21/2019 5:20 PM OCCUPATIONAL THERAPY DEPARTMENT CHAIR): Most likely caused by GERD and hiatal hernia, concerning for erosive esophagitis. GI consulted. Continue IV Pepcid started in the ED (PPIs contraindicated with methotrexate) and start Tums p.r.n. Cannot rule out cardiac etiology with strong family history of heart disease, age, and history of hypertension. ECG shows no signs of acute ischemia and initial troponin ED negative, will trend and check stress test in the morning. Assessment & Plan (08/02/2019 12:09 PM OCCUPATIONAL THERAPY DEPARTMENT CHAIR): Will place referral to Cardiology. EKG shows a sinus rhythm. Possible old anterior infarct shown on EKG. There is a prominent R-wave. He wishes to see Dr. Agosto clinically he is stable at this time. He has no signs and symptoms of active chest pain. Instructed on signs and symptoms of cardiac chest pain and report to the emergency room if this occurs. Annual physical exam 04/29/2019 020 Assessment & Plan (04/29/2019 8:44 AM CDT): 1. Eat a healthy diet: focus on lean meats and proteins, more fruits, vegetables and whole grains and low in sugars and fats. Limit red meat and avoid processed meat. 2. Maintain a healthy weight; avoid being overweight. Aim for a normal body mass index (BMI) of 18.5-24.9. Help learning to eat healthier, we can set up appointment with male infertility specialist/jewelry sorter. 3. Have an active lifestyle, strive for 30 minutes of moderate exercise 5 times a week and strength or resistance training at least twice a week. 4. Use broad-spectrum (UVA+UVB) sunscreen with SPF 30 or greater, is water resistant, limit time spent in the sun (10 am-4pm), wear hat, wear UV protective clothing, wear sunglasses. Never use a tanning bed. Skin that was irradiated may be more sensitive over your lifetime. 5. Do not smoke or chew tobacco 6. Limit alcohol intake, 2 drinks per day for a man. Morbid obesity with BMI of 40.0-44.9, adult 04/29/2019 07/10/2021 Assessment & Plan (11/04/2019 8:42 AM OCCUPATIONAL THERAPY DEPARTMENT CHAIR): Has lost 4# since 07/2019 appt here in our office. The BMI is in the obese range thus increasing your risk for cardiovascular, endocrine, GI, and musculoskeletal problems. Strive to cut back on calories and increase exercise to achieve weight loss. Include at least 4-5 fruits and vegetables in the diet daily and exercise for about 30 min nearly every day. Limit fried and high fat foods and include lean sources of protein as well as low fat dairy or other calcium sources. Consider making short and snf goal to track your progress. Keep a diet/exercise record or on line resource to track calories in and out. Discuss your efforts with me at the next visit. Look up [employer] - this is a free calorie tracking ernestina. Discussed healthy diet and importance of regular physical activity. Assessment & Plan (08/21/2019 5:20 PM OCCUPATIONAL THERAPY DEPARTMENT CHAIR): Encourage weight loss. Assessment & Plan (04/29/2019 8:40 AM CDT): Reviewed need to lose weight, reviewed health benefits. Reviewed recommendations for daily intake & activity 20-30 minutes/day. Discussed healthy diet and importance of regular physical activity. Need for pneumococcal vaccination 04/29/2019 11/03/2019 Assessment & Plan (04/29/2019 9:57 AM CDT): Pneumovax 23 vaccine given today. Discussed possible tenderness/redness at injection site. Morbidly obese 04/07/2019 11/03/2019 Assessment & Plan (08/02/2019 11:57 AM OCCUPATIONAL THERAPY DEPARTMENT CHAIR): Advised on need for weight loss. Advised that this could be a contributing factor to some of his reflux issues. Assessment & Plan (04/07/2019 11:30 PM CDT): A BMI or body mass index between 20 and 25 is considered healthy. A combination of diet and exercise can help to attain/maintain a healthy BMI to improve vascular risk factors and diabetes risk. Each pound of weight lost unloads 3-4 pounds per square inch pressure from weight bearing joint. Posterior neck pain 12/16/2017 11/04/19 Assessment & Plan (12/16/2017 1:13 PM CDT): Pt. Does have history of neck/cervical pain. He has some intervertebral disorder of the disc. His L-spine MRI back in 2009 showed disc bulging in multi disc. He had an injection in cervical spine was in 2005. Will get C-spine X-ray. May refer to pain management Dr. Landeros for cervical pain and possible injection Obesity (BMI 30-39.9) 12/16/20172019 Assessment & Plan (12/16/2017 1:16 PM CDT): Obesity is unchanged. Discussed the patient's BMI. The BMI is above average; BMI management plan is completed. Regular aerobic exercise program discussed. Diet-Many types of diets produce modest weight loss. Options include balanced low-calorie, low-fat low-calorie, moderate-fat low-calorie, low-carbohydrate diets, and the Mediterranean diet. Dietary adherence is an important predictor of weight loss, regardless of the type of diet. Exercise -- Although less potent than dietary restriction in promoting weight loss, increasing energy expenditure through physical activity is a strong predictor of weight loss maintenance. Physical activity should be performed for approximately 30 minutes or more, five to seven days a week, to prevent weight gain and to improve cardiovascular health. Behavior modification or behavior therapy is one cornerstone in the treatment for obesity. The goal of behavioral therapy is to help patients make long-term changes in their eating behavior by modifying and monitoring their food intake, modifying their physical activity, and controlling cues and stimuli in the environment that trigger eating. At least 30 minutes a day for at least 5 days a week for a total of 150 minutes a week or moderate-intensity activity! Something is always better than nothing! Other headache syndrome 11/24/201701/2020 Assessment & Plan (12/16/2017 1:04 PM CDT): Headaches are improving with treatment. Advised to keep a headache diary. Headaches are still to the back of the head and he wakes up with them. Pt. States VERGARA have improved with using Flonase and Zyrtec Daily. He has had approx 4 VERGARA's since his last visit. Although improved, still talked with him regarding other potential causes-ADRIANA, cervical neck pain, HTN. Pt.'s BP was elevated on the mornings he did have his VERGARA's. Will also increase his lisinopril to take 20 mg in the morning and 20 mg in the pm. Pt was instructed to monitor BP until f/u appt. Assessment & Plan (11/24/2017 9:12 PM CDT): Headaches are worsening. Wakes up with headache-usually goes away by the time he gets up and starts moving and has his coffee, It is the back of his head-dull ache Advised to keep a headache diary. NSAIDs are mainstays of acute tension type Headaches. These are medications like Motrin, Ibuprofen, Aleve, Naproxen.and even Acetaminophen (tylenol). Being in a cool dark room may help your headache. If you experience nausea with your headache, you can take nausea medication if prescribed Stick with clear liquid until nausea subsides If you have been prescribed any medications, take as directed PREVENTION is very important-Avoid triggers, reduce stress. Get plenty of sleep, exercise and eat healthy. You can also try Relaxation, deep breathing and Imagery. If you experience a headache that is out of your normal, or have vision loss, dizziness- go to ER Pt to try zyrtec and Flonase and check BP in the morning. May need to get a sleep study And see neurologist Sleep disturbance 11/24/2017 11/04/2019 Assessment & Plan (12/16/2017 1:14 PM CDT): Encourage pt to get sleep study r/t snoring and elevated BP's in the AM. Pt. Will consider. Assessment & Plan (11/24/2017 9:14 PM CDT): Pt. Does snore per pt. , wakes up unrefreshed. Pt. Wakes up with headache almost daily. If headaches do not improve with flonase and zyrtec then will need to see neurologist and possible sleep study. Chronic ITP (idiopathic thrombocytopenia) 06/20/2014 07/10/2021 Overview (07/05/2021): 2013 plt 75 Psoriasis 01/14/2014 07/10/2021 Overview (12/04/2016): Psoriasis Disorder of intervertebral disc 01/14/2014 01/10/2018 Overview (12/04/2016): DISC DIS NEC/NOS-LUMBAR Drug indicated 01/12/2012 11/03/2019 Overview (12/04/2016): Encounter for long-term (current) use of high-risk Encounters Date Type Department Care Team Description 09/29/2024 8:27 PM OCCUPATIONAL THERAPY DEPARTMENT CHAIR - 09/29/2024 11:59 PM OCCUPATIONAL THERAPY DEPARTMENT CHAIR Hospital Encounter [facility] Emergency, Room R Discharge Disposition: Discharge to home or self care 09/29/2024 11:09 AM OCCUPATIONAL THERAPY DEPARTMENT CHAIR - 09/29/2024 11:59 PM OCCUPATIONAL THERAPY DEPARTMENT CHAIR Hospital Encounter [facility] Emergency, Room R Discharge Disposition: Discharge to home or self care from Last 3 Months Immunizations Immunization Administration Dates Next Due Influenza, Quadrivalent, Hig h Dose, Preservative Free, Intrr 05/21/2021,06/05/2020 Influenza, Quadrivalent, Spl it, Preservative Free, Intramuscular 05/01/2016 Influenza, Split 07/25/2013 Influenza, Trivalent, High D ose, Split, Preservative Free, Intramuscular 06/22/2019,06/10/2018,06/03/2017 Influenza, Trivalent, Preser vative Free, Intramuscular 07/13/2015 Influenza, Unspecified 06/24/2019,06/03/2017 Moderna SARS-CoV-2 Monovalen t Vaccination (12+ YRS) 12/16/2021,07/24/2021,11/09/2020,10/12 PPD TEST 03/07/2014 Pneumococcal Conjugate PCV 13 12/16/2021, 014 Pneumococcal Polysaccharide PPV23 04/29/2019,03/2014 Tdap 11/13/2021 ZOSTER LIVE 04/07/2014 Surgical History Surgery Date Site/Laterality Comments BACK SURGERY Back surgery ARTHROCENTESIS OF TROCHANTER IC BURSA Arthrocentesis of the left hip trochanteric bursa OTHER SURGICAL HISTORY Thrombocytopathy: isolated, will send for Heme eval. ARTHROCENTESIS OF TROCHANTER IC BURSA Arthrocentesis of the right hip trochanteric bursa POLYPECTOMY COLONOSCOPY 02/09/2012 Medical History Medical History Date Comments Psoriasis psoriasis Hx Other Medical hiatal hernia Hypertension Hypertension Hx Other Medical 2010 Thrombocytopath y Hx Other Medical 2011 psoriatic arthr itis; Comments: DRS 03/14/2014 - Colon polyp Gastroesophageal reflux dise ase without esophagitis 08/02/2019 Family History Medical History Relation Name Comments Coronary artery disease Father Saul nary artery disease; Coronary artery disease Mother Cancer Other 1 Family history of Cancer -; Coronary artery disease Other 2 Fami ly history of Coronary artery disease; Relation Name Status Comments Brother (Age 74) Father (Age 57) Mother (Age 72) Other 1 Other 2 Social History Tobacco Use Types Packs/Day Years Used Date Smoking Tobacco: Former Cigarettes Q uit: 1994 Smokeless Tobacco: Never Alcohol Use Standard Drinks/Week Comments Yes 0 (1 standard drink = 0.6 oz pur e alcohol) social PHQ-2 Answer Date Recorded PHQ-2 Total Score (If total score is 3 or more points, staff should administer the PHQ-9) 0 09/04/2021 Sex and Gender Information Value Date Recorded Sex Assigned at Not on file Legal Sex Male 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 Gender Identity Not on file Sexual Orientation Not on file Obstetrics History Last Filed Vital Signs Vital Sign Reading Time Taken Comments Blood Pressure 128/84 11/13/2021 2:46 PM CDT Pulse 81 11/13/2021 2:46 PM CDT Temperature 36.7 C (98.1 F) 11/13/2021 2:46 PM CDT Respiratory Rate 16 11/13/2021 2:46 PM CDT Oxygen Saturation 98% 11/13/2021 2:46 PM CDT Inhaled Oxygen Concentration - - Weight 115.5 kg (254 lb 9.6 oz) 11/13/2021 2:46 PM CDT Height 175.9 cm (5' 9.25 ) 11/13/2021 2:46 PM CD T Body Mass Index 37.33 11/13/2021 2:46 PM CDT Plan of Treatment Health Maintenance Due Date Last Done Comments Hepatitis B Screening 1968 Zoster Vaccine (1 of 2) 06/02/2014 04/07/2014 Well Visit 65+ 08/14/2022 08/14/2021, 04/02, 03/05/2018 Depression Screening 09/04/2022 09/04/2021, 08/14/2021, 02/22/2021, Additional history exists Fall Risk Assessment 09/04/2022 09/04/2021, 08/14/2021, 02/22/2021, Additional history exists Colon Cancer Screening-Colonoscopy 04/09/2023 04/09/2018, 02/09/2012 Covid-19 Vaccine (2023-2 5 season) 2024 12/16/2021, 07/24/2021, 11/09/2020, Additional history exists Influenza Vaccine (#1) 2024 , 06/05/2020, 06/24/2019, Additional history exists DTaP/Tdap/Td Vaccine (2 - Td or Tdap) 11/14/2031 11/13/2021 Abdominal Aortic Aneurysm (A AA) Screen Completed 01/22/2018 Colon Cancer Screening-CT Colonography Discontinued 04/09/2018, 02/09/2012 Colon Cancer Screening-DNA Stool Discontinued 04/09/20 18, 02/09/2012 Colon Cancer Screening-FIT Discontinued 04/09/2018, Colon Cancer Screening-Sigmoidoscopy Discontinued 04/09/2018, 02/09/2012 Prostate Cancer Screening-PSA Discontinued 02/22/2021, 09/21/2017 Hepatitis C Screening Completed 04/29/2021, 018 Pneumococcal vaccine 65+ Completed 022, 04/29/2019, 06/07/2014, Additional history exists Procedures Procedure Name Priority Date/Time Associated Diagnosis Comments HEPATITIS C ANTIBODY Routine 04/29/2021 8:25 AM CDT PSA SCREEN Routine 02/22/2021 9:54 AM CDT Prostate cancer screening COLONOSCOPY 04/09/2018 8:[address] ABDOMEN PELVIS W CONTRAST Schedule JHONATAN, Read Routine (Patient lives out of area) 01/22/2018 8:51 AM CDT Thrombocytopenia (CMS/HCC) from Last 3 Months or Most Recently Relevant to Health Maintenance Results * Hepatitis C antibody (04/29/2021 8:25 AM CDT) Hep C Ab Nonreactive Nonreactive ORIN LOBO Comment: Interpretive Data Nonreactive: Antibodies to HCV not detected. Does NOT exclude the possibility of recent exposure to HCV. Equivocal: Equivocal for HCV antibodies. Supplemental molecular testing will be automatically performed to determine infection status in accordance with current CDC screening recommendations. Reactive: Positive for HCV antibodies. This may represent current or past HCV infection. Supplemental molecular testing will be automatically performed to determine current infection status in accordance with current CDC screening recommendations. Interpretive data was last revised on 2019. Blood 04/29/2021 8:25 AM CDT 04/29/2021 8:30 AM CDT Janette Palomo MD LAB MICROBIOLOGY - GENERA L ORDERABLES Final Result Performing Organization Address City/[facility] Co de Phone Number ORIN [address] [place] [address] * PSA screen (02/22/2021 9:54 AM CDT) PSA-Total 0.72 <=6.20 ng/mL ORIN LOBO Comment: Interpretive Data AGE SEX REFERENCE INTERVAL 0 minutes-150 years Female None 0 minutes-49 years Male None 50-59 years Male 0-3.90 60-69 years Male 0-5.40 70-79 years Male 0-6.20 80-150 years Male 0-6.20 Current interpretive data last revised 2018. Blood specimen (specimen) 02/22/2021 9:54 AM CDT 02/22/2021 1:37 PM CDT Manuel Andrews MD LAB BLOOD ORDERABLES Trena l Result Performing Organization Address [facility] Co de Phone Number ORIN [address] [place] [address] * COLONOSCOPY (04/09/2018 8:23 AM CDT) Anatomical Region Laterality Modality Other Narrative Procedure Note Star Palma MD - 04/09/2018 8:23 AM CDT [facility] Patient Name: Alexandru Tyson Procedure Date: 04/09/2018 8:23 AM Date of : 1950 Admit Type: Outpatient Age: 67 Gender: Male Attending MD: Star Palma M.D. Room: [facility] END[facility]COPY [facility]OM 1 Note Status: Finalized Procedure: Colonoscopy Indications: High risk colon cancer surveillance: Personalhistory of colonic polyps, Last colonoscopy: January 2012 Referring MD: Manuel Andrews M.D. Providers: Star Palma M.D. Impression: - Hemorrhoids found on perianal exam. - The entire examined colon is normal. - No specimens collected. Recommendation: - Discharge patient to home. - Resume previous diet. - Continue present medications. - Repeat colonoscopy in 5 years for surveillance. - Return to primary care physician as previously scheduled. Medicines: Propofol per Anesthesia Complications: No immediate complications. Estimated Blood Loss: Estimated blood loss: none. Procedure: The benefits, risks and alternatives of theprocedure and sedation were discussed and informed consent was obtained. All questions were answered. Please referto the signed informed consent document in the medical record. The scope was passed under direct vision.The Colonoscope [id number] was introducedthrough the anus and advanced to the the cecum, identifiedby appendiceal orifice and ileocecal valve. The colonoscopy was performed without difficulty. The patient tolerated the procedure well. The quality of the bowel preparation was good. Findings: Hemorrhoids were found on perianal exam. The colon (entire examined portion) appeared normal. Electronically signed by Star Palma M.D. Star Palma M.D. 04/09/2018 8:56:01 AM Number of Addenda: 0 Note Initiated On: 04/09/2018 8:23 AM Procedure Code(s): --- Professional --- G0105, Colorectal cancer screening; colonoscopy on individual at high risk Diagnosis Code(s): --- Professional --- K64.9, Unspecified hemorrhoids Z86.010, Personal history of colonic polyps CPT copyright 2017 [employer]. All rights reserved. The codes documented in this report are preliminary and upon floor finisher helper reviewmay be revised to meet current compliance requirements. Recognized by the [employer] for promoting quality in endoscopy Star Palma MD ENDOSCOPY PROCEDURES Final Re sult * CT abdomen pelvis with contrast (01/22/2018 8:51 AM CDT) Anatomical Region Laterality Modality Body N/A Computed Tomogra phy Impressions 01/22/2018 9:08 AM CDT No acute findings. Electronically signed by: Benjamín Fontenot M.D. Narrative 01/22/2018 9:08 AM CDT EXAM: CT ABDOMEN PELVIS W CONTRAST HISTORY: Thrombocytopenia COMPARISON: None TECHNIQUE: Following administration of 100 mL of Optiray 320 axial images of the abdomen and pelvis were obtained. Sagittal and coronal reconstructions were performed. FINDINGS: Views through the lung bases reveal no acute pulmonary findings. Surgical clips are noted near the GE junction The liver, gallbladder, spleen, pancreas, kidneys, and adrenal glands are normal. The large and small bowel appear overall normal in caliber and configuration. A few sigmoid diverticula are seen without evidence acute diverticulitis noted. The appendix is normal. No free intraperitoneal air or obstruction is seen. The abdominal aorta appears overall normal in course and caliber. Mural plaque and atherosclerotic calcification is noted in the abdominal aorta No significant mesenteric or retroperitoneal lymphadenopathy is noted. The urinary bladder is unremarkable. The pelvic viscera are normal. No free pelvic fluid is seen. No pelvic or lymphadenopathy is noted. Disc space narrowing and vacuum disc phenomenon is noted at L4-L5. Procedure Note Benjamín Fontenot MD - 01/22/2018 EXAM: CT ABDOMEN PELVIS W CONTRAST HISTORY: Thrombocytopenia COMPARISON: None TECHNIQUE: Following administration of 100 mL of Optiray 320 axial images of the abdomen and pelvis were obtained. Sagittal and coronal reconstructions were performed. FINDINGS: Views through the lung bases reveal no acute pulmonary findings. Surgical clips are noted near the GE junction The liver, gallbladder, spleen, pancreas, kidneys, and adrenal glands are normal. The large and small bowel appear overall normal in caliber and configuration. A few sigmoid diverticula are seen without evidence acute diverticulitis noted. The appendix is normal. No free intraperitoneal air or obstruction is seen. The abdominal aorta appears overall normal in course and caliber. Mural plaque and atherosclerotic calcification is noted in the abdominal aorta No significant mesenteric or retroperitoneal lymphadenopathy is noted. The urinary bladder is unremarkable. The pelvic viscera are normal. No free pelvic fluid is seen. No pelvic or lymphadenopathy is noted. Disc space narrowing and vacuum disc phenomenon is noted at L4-L5. IMPRESSION: No acute findings. Electronically signed by: Benjamín Fontenot M.D. [facility] Shirley Dhillon MD IMG CT PROCEDURES Trena l Result from Last 3 Months or Most Recently Relevant to Health Maintenance Insurance [facility] Member Subscriber Plan / Payer (Ef fective 2017-Present) Name:Alexandru Tyson Relation to Subscriber:Self Name:Alexandru Tyson Payer ID:[id number] (NAIC) Type:MEDICARE RISK OTHER Address: [address] [facility] MEDICARE HMO [facility] MEDICARE O Advance Directives For more information, please contact: [phone] * Full Code (Latest Code Status on File) Date Activated Date Inactivated Comments 08/22/2019 1:51 PM 08/22/2019 9:15 PM * Full Code Date Activated Date Inactivated Comments 08/21/2019 3:04 PM 08/22/2019 1:51 PM * Full Code Date Activated Date Inactivated Comments 04/09/2018 8:18 AM 04/09/2018 11:39 AM Healthcare Agents on File Name Relationship Healthcare Agent [facility] Communication Magalie Tyson Spouse First Alternate Health Care Agent Care Teams Master Brewer Relationship Specialty Start Date End Date Arianne Cabrera NP [address] [place] [address] PCP - General Nurse Practitioner 04/14/24
--- OUTSIDE RECORDS SUMMARY | 2024-10-17 18:06 | XMS_ITS | Referral Summary ---
Author Organization [facility] Address [address] [place] [address] [place] [address] Care Team Providers Care Property Field Adjuster Name Role Phone Arianne Cabrera NP Primary Care Provider [phone] Encounters Date Type Department Care Team Description 09/29/2024 8:27 PM SECONDARY CONNECTOR ARMATURE - 09/29/2024 11:59 PM SECONDARY CONNECTOR ARMATURE Hospital Encounter [facility] Emergency, Room R Discharge Disposition: Discharge to home or self care 09/29/2024 11:09 AM SECONDARY CONNECTOR ARMATURE - 09/29/2024 11:59 PM SECONDARY CONNECTOR ARMATURE Hospital Encounter [facility] Emergency, Room R Discharge Disposition: Discharge to home or self care from Last 3 Months Allergies No known active allergies Medications folic [...] 08/14/2021 Assessment & Plan (08/14/2021 8:52 AM SECONDARY CONNECTOR ARMATURE): Reviewed need to lose weight, reviewed health benefits. Reviewed recommendations for daily intake & activity 20-30 minutes/day. Discussed healthy diet and importance of regular physical activity. Encounter for Medicare annual wellness exam 07/01 Assessment & Plan (08/11/2021 10:51 AM SECONDARY CONNECTOR ARMATURE): 1. Eat a healthy diet: focus on lean meats and proteins, more fruits, vegetables and whole grains and low in sugars and fats. Limit red meat and avoid processed meat. 2. Maintain a healthy weight; avoid being overweight. Aim for a normal body mass index (BMI) of 18.5-24.9. Help learning to eat healthier, we can set up appointment with concession manager/beauty sales consultant. 3. Have an active lifestyle, strive for [...] 11/04/2019 Assessment & Plan (08/11/2021 10:57 AM SECONDARY CONNECTOR ARMATURE): Atorvastatin 40mg daily. Denies myalgias. 02/21/20 BP=354 HDL=39 XE=184 SEW=694 TC/HDL=6.0 02/22/21 PN=915 HDL=42 UP=468 LDL=86 TC/HDL=4 FTNRHR=353 04/30/21 TD=753 HDL=43 UL=647 LDL=88 TC/HDL=4 RTHZWB=096 We will check labs and make adjustments [...] flags. Assessment & Plan (11/04/2019 10:45 AM SECONDARY CONNECTOR ARMATURE): 04/29/19 CJ=161 HDL=38 DC=319 MGD=259 TC/HDL=6.2 thh=307 11/04/19 JP=067 HDL=41 JJ=603 IHF=449 TC/HDL=5.8 UXS=189 Copy of results given to Mr Tyson as well as written explanation. Stressed need for lifestyle/dietary changes. Atorvastatin 40mg sent. Reviewed med SE & scheduling. To make f/u appt in 3 mos; to have labs drawn few days prior to appt. Esophageal reflux 08/02/2019 Assessment & Plan (08/11/2021 10:52 AM SECONDARY CONNECTOR ARMATURE): Pantoprazole 40mg daily. Reviewed provocative foods to [...] bedtime. Assessment & Plan (11/04/2019 10:41 AM SECONDARY CONNECTOR ARMATURE): Continues on pantoprazole for GERD. Last filled [...] bedtime. Assessment & Plan (08/21/2019 5:19 PM SECONDARY CONNECTOR ARMATURE): Likely cause of current chest pain. Was previously well controlled with Prilosec, but this had to be stopped when he started methotrexate for psoriatic arthritis. Assessment & Plan (08/02/2019 11:57 AM SECONDARY CONNECTOR ARMATURE): Instructed on GERD diet and to use [id number]-[id number] calcium carbonate as needed. Restrict caffeine 5 hours before bed. Do not eat 3 hours before bedtime. Cervicalgia 04/29/2019 Assessment & Plan (04/29/2019 10:02 AM CDT): Referral to Dr Valenzuela at [facility] entered per his request. Aware that Dr Valenzuela's office will call to set up appt Long-term use of high-risk medication 04/07/2019 Assessment & Plan (04/07/2019 11:30 PM CDT): Patient on immunosuppressive medications requiring periodic lab monitoring for drug safety. 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 MTX 15mg weekly. Has new pt appt w/Dr Valentino at [place] 01/2022. Has been seeing Dr Janette Palomo (derm) & she plans to start him on Humira. Assessment & Plan (02/20/2020 10:18 PM CDT): Followed by Dr Roland Stoll (rheum). Next office visit 03/30/20 Assessment & Plan (11/04/2019 10:40 AM SECONDARY CONNECTOR ARMATURE): Continues to be followed by Dr Roland Stoll (rheum). KASANDRA 07/05/19. Assessment & Plan (04/07/2019 11:27 PM CDT): Images from the original note were not included. PsA clinically stable on methotrexate (4 tabs). Denies medication side effects. Continue present regimen Hypertension 01/14/2014 Overview (12/04/2016): BP (high blood pressure) Assessment & Plan (08/11/2021 10:55 AM SECONDARY CONNECTOR ARMATURE): Lisinopril 40mg daily. The blood pressure is [...] received. Assessment & Plan (11/04/2019 10:40 AM SECONDARY CONNECTOR ARMATURE): The blood pressure is under good control. Ideally it should be under 130/80. Continue medications without adjustment. Continue efforts to eat well (4-5 fruits and veggies) daily and exercise for about 30 min nearly every day. Watch salt intake, keeping to less than 2000mg per day. Labs ordered today; will contact w/results once received. Assessment & Plan (08/21/2019 5:16 PM SECONDARY CONNECTOR ARMATURE): Continue home lisinopril. Assessment & Plan (12/16/2017 [...] 12/19/2011 Assessment & Plan (08/21/2019 5:17 PM SECONDARY CONNECTOR ARMATURE): Monitored regularly as an outpatient. 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 Assessment [...] (08/22/2019): Added automatically from request for surgery [id number] Other chest pain 08/02/2019 07/10/2021 Assessment & Plan (08/21/2019 5:20 PM SECONDARY CONNECTOR ARMATURE): Most likely caused by GERD and hiatal [...] morning. Assessment & Plan (08/02/2019 12:09 PM SECONDARY CONNECTOR ARMATURE): Will place referral to Cardiology. EKG shows [...] healthier, we can set up appointment with concession manager/beauty sales consultant. 3. Have an active lifestyle, strive for [...] 07/10/2021 Assessment & Plan (11/04/2019 8:42 AM SECONDARY CONNECTOR ARMATURE): Has lost 4# since 07/2019 appt here [...] other calcium sources. Consider making short and salvage determiner goal to track your progress. Keep a diet/exercise record or on line resource to track calories in and out. Discuss your efforts with me at the next visit. Look up [employer] - this is a free calorie tracking ernestina. Discussed healthy diet and importance of regular physical activity. Assessment & Plan (08/21/2019 5:20 PM SECONDARY CONNECTOR ARMATURE): Encourage weight loss. Assessment & Plan (04/29/2019 [...] 11/03/2019 Assessment & Plan (08/02/2019 11:57 AM SECONDARY CONNECTOR ARMATURE): Advised on need for weight loss. Advised [...] bearing joint. Posterior neck pain 12/16/2017 11/04/19 20 Assessment & Plan (12/16/2017 1:13 PM CDT): [...] ITP (idiopathic thrombocytopenia) 06/20/2014 07/10/2021 Overview (07/05/2021): 2014 plt 75 Psoriasis 01/14/2014 07/10/2021 Overview (12/04/2016): Psoriasis Disorder of intervertebral disc 01/14/2014 01/10/2018 Overview (12/04/2016): DISC DIS NEC/NOS-LUMBAR Drug indicated 01/12/2012 11/03/2019 Overview (12/04/2016): Encounter for long-term (current) use of high-risk Immunizations Immunization Administration Dates Next Due Influenza, [...] PPV23 04/29/2019,03/2014 Tdap 11/13/2021 ZOSTER LIVE 04/07/2014 Social History Tobacco Use Types Packs/Day Years [...] on file Legal Sex Male 8:04 PM SECONDARY CONNECTOR ARMATURE Gender Identity Not on file Sexual Orientation Not on file Last Filed Vital Signs Vital Sign Reading [...] 11/13/2021 2:46 PM CDT Plan of Treatment Not on file Procedures Procedure Name Priority Date/Time Associated Diagnosis [...] L ORDERABLES Final Result Performing Organization Address City/State/[facility] de Phone Number ORIN [address] [address] [facility] [employer] [place] [address] * PSA screen (02/22/2021 9:54 AM CDT) [...] ORDERABLES Trena l Result Performing Organization Address [facility] de Phone Number ORIN [address] [address] [place] [place] [address] * COLONOSCOPY (04/09/2018 8:23 AM CDT) Anatomical Region Laterality Modality Other Narrative Procedure Note Star Palma MD - 04/09/2018 8:23 AM CDT Center Patient Name: Doron Tyson Procedure Date: 04/09/2018 8:23 AM Date of : 1950 Admit Type: Outpatient Age: 67 Gender: Male Attending MD: Star Palma M.D. Room: [facility] ENDOSCOPY ROOM 1 Note Status: Finalized [...] scope was passed under direct vision.The Colonoscope [id number] was introducedthrough the anus and advanced to [...] history of colonic polyps CPT copyright 2017 [employer]. All rights reserved. The codes documented in this report are preliminary and upon data coder operator reviewmay be revised to meet current compliance requirements. Recognized by the [employer] for promoting quality in endoscopy us Star Palma MD ENDOSCOPY PROCEDURES Final Re [...] findings. Electronically signed by: Benjamín Fontenot M.D. [place] Shirley Dhillon MD IMG CT PROCEDURES Trena l Result from Last 3 Months or Most Recently Relevant to Health Maintenance Insurance [facility] Member Subscriber Plan / Payer (Ef fective 2017-Present) Name:Doron Tyson Relation to Subscriber:Self Name:Doron Tyson Payer ID:[id number] (NAIC) Type:MEDICARE RISK OTHER Address: [place] [id number] [facility] MEDICARE HMO [facility] MEDICARE O Advance Directives For more information, please contact: [phone] * Full Code (Latest Code Status on File) Date Activated Date Inactivated Comments 08/22/2019 1:51 PM 08/22/2019 9:15 PM * Full Code Date Activated Date Inactivated Comments 08/21/2019 3:04 PM 08/22/2019 1:51 PM * Full Code Date Activated Date Inactivated Comments 04/09/2018 8:18 AM 04/09/2018 11:39 AM Healthcare Agents on File Name Relationship Healthcare Agent Relationshi p Communication Magalie Tyson Spouse First Alternate Health Care Agent Care Teams Property Field Adjuster Relationship Specialty Start Date End Date Arianne Cabrera NP [address] [place] [address] PCP - General Nurse Practitioner 04/14/24
--- OUTSIDE RECORDS SUMMARY | 2024-10-17 18:06 | XMS_ITS | Continuity of Care Document ---
Author Organization [facility] Address [address] [place] [address] [place] [address] Phone Care Team Providers Care Wash Barrel Leader Name Role Phone Kurt Sousa MD Unavailable Unavailable Allergies, Adverse Reactions, Alerts Substance Reaction Status Criticality No Known allergies Medications Medication Instructions Dosage Effective Dates (start - stop) Status Comments Lisinopril 40 mg Tab - Active Methotrexate Sodium 10 mg Tab - Active Procedures Procedure Date Eye Exam, New Patient Fundus Photography W/ Report Advance Directives Directive Yes / No Effective Date File Name Resuscitation Not Answered N/A N/A Life Support Not Answered N/A N/A Intubation Not Answered N/A N/A Antibiotics Not Answered N/A N/A IV Fluid Support Not Answered N/A N/A Tube Feed Not Answered N/A N/A Other Directive N/A N/A WARNING:The information contained in this section is historical and is provided for information only and does not constitute a legal document or any assurance that the information is still accurate. Please verify the information with the cantrell of the legal document before using it for clinical purposes. Encounters Encounter Description Practice Location Reason(s) For Visit Diagnoses Date Provider Providers Copied on Encounter [facility], [address] [place] [address] [address], [place], [place], [id number], [place] tel:[phone] [place] GARCIA Professional No Information 3 Merry Hicks. [address] [facility] [address], [place], [place], [id number], [place]. tel:[phone] [facility], [address] [place] [address] [address], [place], [place], [id number], [place] tel:[phone] [place] Professional eyes doing well, without complaint. (chief complaint) No Information 3 Merry Edwardald. [address] [facility], [address], [place], [place], [id number], [place]. tel:[phone] Referring Provider: [facility]haliwal [address] [facility] [place], [address] . tel:[phone] Family History Family Member Type Diagnosis Age At Onset No Information Payers Payer name Insurance type Covered constitution party ID Jackeline gleason(s) [facility] CI [id number] Social History Type Description Quantity Date Captured Comments Alcohol Use Details No Caffeine Use Details 2 cups per day Tobacco Use Status No Information Smoking Status No Information Sex Male Chief Complaint And Reason For Visit No Information Reason For Referral Reason For Referral No Information History Of Present Illness Encounter Date Complaint History Of Prese nt Illness No Information Functional Status Date Functional Assessmen t No Information Instructions Date Instruction Additional Infor mation choroidal nevus od - optomap don e - 1yr Assessments Type Assessment Date No Information Patient Care Teams Name Effective Dates (start - stop) Status Members No Information
--- OUTSIDE RECORDS SUMMARY | 2024-10-17 18:06 | XMS_ITS | Clinical Summary ---
Author Organization [facility] ENTER Address [address] [place] [address] Phone Care Team Providers Care Flatbed Stitcher Name Role Phone Kody Ahmadi MD Primary Care Provider Allergies No known active allergies Medications atorvastatin (LIPITOR) 40 MG Tablet Take 40 mg by mouth daily. Active amLODIPine (NORVASC) 2.5 MG Tablet Take 2.5 mg by mouth daily. Active FOLIC ACID PO Take by mouth. A ctive Cyanocobalami n (VITAMIN B 12 PO) Take by mouth. Activ e docusate sodium (COLACE) 50 MG/5ML Liquid Take 50 mg by mouth daily as needed. Active Ixekizumab (Taltz) 80 MG/ML Solution Prefilled SyringeIndica tions:Psoriat ic Arthritis 80 mg by Subcutaneous route every 30 days. Indications: Psoriasis associated with Arthritis Active aspirin 81 MG Chewable Tablet Take 81 mg by mouth daily. Active HYDROcodone-a cetaminophen (NORCO) 5-325 MG TabletIndicat ions:Colitis Take 1 Tablet by mouth every 8 hours as needed for Moderate or more severe pain. 15 Tablet 10/01/19 25 Active ondansetron (ZOFRAN) 4 MG Tablet Take 1-2 Tablets by mouth every 8 hours as needed for Nausea - 1st line for up to 5 days. 20 Tablet 09/29/19 25 10/04/ 025 pantoprazole (PROTONIX) 40 MG Tablet Delayed Response Take 1 Tablet by mouth daily for 7 days. 7 Tablet 09/29/19 25 025 traMADol (ULTRAM) 50 MG TabletIndicat ions:Enteroco litis Take 1-2 Tablets by mouth every 6 hours as needed for Mild or more severe pain for up to 5 days. 15 Tablet 09/29/19 25 025 Discontinued(A lternate therapy) diphenoxylate -atropine (Lomotil) 2.5-0.025 MG TabletIndicat ions:Enteroco litis Take 1 Tablet by mouth 3 times daily as needed for Diarrhea for up to 14 days. 15 Tablet 09/29/19 25 025 metroNIDAZOLE (FLAGYL) 500 MG TabletIndicat ions:Intra-Ab dominal Infection Take 1 Tablet by mouth 3 times daily for 6 days. Indications: Infection Within the Abdomen 18 Tablet 10/01/19 25 025 Discontinued cephALEXin (KEFLEX) 500 MG Capsule Take 1 Capsule by mouth 3 times daily for 6 days. 18 Capsule 10/01/19 25 025 Discontinued HYDROcodone-a cetaminophen (NORCO) 5-325 MG TabletIndicat ions:Colitis Take 1 Tablet by mouth every 8 hours as needed for Moderate or more severe pain. 15 Tablet 10/01/19 25 025 Discontinued cephALEXin (KEFLEX) 500 MG Capsule Take 1 Capsule by mouth 3 times daily for 6 days. 18 Capsule 10/01/19 25 025 metroNIDAZOLE (FLAGYL) 500 MG TabletIndicat ions:Intra-Ab dominal Infection Take 1 Tablet by mouth 3 times daily for 6 days. Indications: Infection Within the Abdomen 18 Tablet 10/01/19 25 025 Active Problems Problem Noted Date Diagnosed Date Colon polyps 06/01/2024 Hypertension Arthritis Psoriasis Pyloric stenosis, congenital Resolved Problems Problem Noted Date Diagnosed Date Resolved Date Colitis 09/30/2024 10/01/2024 Encounters Date Type Department Care Team Description 09/29/2024 9:17 PM RECRUITER MANAGER - 10/01/2024 2:56 PM RECRUITER MANAGER Emergency [facility] Med Surg [address] [place] [id number] Manuel Coppola MD Patel, Satyen V, MD Colitis Discharge Disposition: Discharged to home or Selfcare 09/29/2024 11:29 AM RECRUITER MANAGER - 09/29/2024 3:31 PM RECRUITER MANAGER Emergency [facility] Emergency [address] [place] [address] Gerry Jackson MD Enterocolitis Discharge Disposition: Discharged to home or Selfcare 09/29/2024 Travel from Last 3 Months Family History Medical History Relation Name Comments Heart Attack Father Hypertension Mother Relation Name Status Comments Father Mother Social History Tobacco Use Types Packs/Day Years Used Date Smoking Tobacco: Former Cigarettes 1.5 25 1 970 - 1994 Smokeless Tobacco: Never Tobacco Cessation:Counseling Given: Not Answered Alcohol Use Standard Drinks/Week Comments Yes 2 (1 standard drink = 0.6 oz pur e alcohol) [facility] Utilities Answer Date Recorded In the past 12 months has e electric, gas, oil, or water company threatened to shut off services in your home? Patient declined 09/30/2024 Social Connection and Isolation Panel [NHANES] A nswer Date Recorded In a typical week, how many times do you talk on the phone with family, friends, or neighbors? Patient declined 09/30/2024 How often do you get togethe r with friends or relatives? Patient declined 09/30/2024 How often do you attend anglican or zoroastrian serv ices? Patient declined 09/30/2024 Do you belong to any clubs o r organizations such as anglican groups, unions, fraternal or athletic groups, or school groups? Patient declined 09/30/2024 How often do you attend meet ings of the clubs or organizations you belong to? Patient declined 09/30/2024 Are you , , di vorced, , never , or living with a partner? Patient declined 09/30/2024 AUDIT-C Answer Date Recorded Q1: How often do you have a drink containing alc ohol? Patient declined 09/30/2024 Q2: How many drinks containi ng alcohol do you have on a typical day when you are drinking? Patient declined 09/30/2024 Q3: How often do you have si x or more drinks on one occasion? Patient declined 09/30/2024 Overall Financial Resource Strain (CARDIA) Answe r Date Recorded How hard is it for you to pa y for the very basics like food, housing, medical care, and heating? Patient declined 09/30/2024 [facility] - Occupational Stress Questionnaire Answer Date Recorded Do you feel stress - tense, restless, nervous, or anxious, or unable to sleep at night because your mind is troubled all the time - these days? Patient declined 09/30/2024 Exercise Vital Sign Answer Date Recorde d On average, how many days pe r week do you engage in moderate to strenuous exercise (like a brisk walk)? Patient declined On average, how many minutes do you engage in exercise at this level? Patient declined 09/30/2024 Hunger Vital Sign Answer Date Recorded Within the past 12 months, y ou worried that your food would run out before you got the money to buy more. Patient declined Within the past 12 months, t he food you bought just didn't last and you didn't have money to get more. Patient declined PRAPARE - Transportation Answer Date Re corded In the past 12 months, has l ack of transportation kept you from medical appointments or from getting medications? Patient declined 09/30/2024 In the past 12 months, has l ack of transportation kept you from meetings, work, or from getting things needed for daily living? Patient declined 09/30/2024 Housing Stability Vital Sign Answer Pardeep e Recorded In the last 12 months, was t here a time when you were not able to pay the mortgage or rent on time? Patient declined 09/30/19 25 In the past 12 months, how m any times have you moved where you were living? 1 09/30/2024 At any time in the past 12 m [facility], were you homeless or living in a residential (including now)? Patient declined 09/30/2024 Sex and Gender Information Value Date Recorded Sex Assigned at Not on file Legal Sex Male 11:49 PM CDT Gender Identity Not on file Sexual Orientation Not on file Last Filed Vital Signs Vital Sign Reading Time Taken Comments Blood Pressure 183/73 10/01/2024 12:27 PM RECRUITER MANAGER Pulse 82 10/01/2024 12:27 PM RECRUITER MANAGER Temperature 36.3 C (97.3 F) 10/01/2024 12:27 PM RECRUITER MANAGER Respiratory Rate 14 10/01/2024 12:27 PM RECRUITER MANAGER Oxygen Saturation 99% 10/01/2024 12:27 PM RECRUITER MANAGER Inhaled Oxygen Concentration - - Weight 113.2 kg (249 lb 8 oz) 10/01/2024 6:23 AM RECRUITER MANAGER Height 177.8 cm (5' 10 ) 09/30/2024 2:06 AM RECRUITER MANAGER Body Mass Index 35.8 09/30/2024 2:06 AM RECRUITER MANAGER Plan of Treatment Health Maintenance Due Date Last Done Comments Hepatitis C Virus (HCV) Screening 1950 Cologuard 2000 Immunochemical Fecal Occult Blood 2000 Zoster Immunization (2 of 3) 06/02/2014 04/07/2014 AAA Screening Ultrasound 2015 SARS-COV-2 Immunization ( season) 2024 05/19/2024, 06/02/2023, 06/08/2022, Additional history exists Respiratory Syncytial Virus (RSV) Immunization (Adult) (1 - 1-dose 75+ series) 2025 Colonoscopy 06/01/2029 06/01/2024 Colorectal Cancer Screening 06/01/2029 06/01/2024 DTaP/Tdap/Td Immunization Discontinued 11/13/2021 TdaP Immunization Completed 11/13/2021 Pneumococcal Immunization (50+ years) Completed 12/16/2021, 04/29/2019, 06/07/2014, Additional history exists Influenza Immunization Completed , 05/11/2023, 06/02/2022, Additional history exists Hepatitis B Immunization Aged Out No longer eligible based on patient's age to complete this topic Meningococcal Immunization (ACWY) Aged Out No longer eligible based on patient's age to complete this topic Rotavirus Immunization Aged Out No lo nger eligible based on patient's age to complete this topic Procedures Procedure Name Priority Date/Time Associated Diagnosis Comments PREPARE PLATELETS Routine 10/02/2024 1:5 5 AM RECRUITER MANAGER CROSSMATCH W/ ABO & RH, ANTIBODY SCREEN Routine 10/01/2024 6:26 AM RECRUITER MANAGER CBC WITH AUTO DIFFERENTIAL Routine 10/01/2024 4:20 AM RECRUITER MANAGER COMPLETE BLOOD COUNT (CBC) WITH DIFF Routine 10/01/2024 4:20 AM RECRUITER MANAGER BASIC METABOLIC PANEL W/ CALCIUM TOTAL Routine 10/01/2024 4:20 AM RECRUITER MANAGER PHOSPHORUS (PO4) Routine 10/01/2024 4:20 AM RECRUITER MANAGER MAGNESIUM (MG) Routine 10/01/2024 4:20 AM RECRUITER MANAGER RHYTHM STRIP 10/01/2024 12:00 AM RECRUITER MANAGER RHYTHM STRIP 10/01/2024 12:00 AM RECRUITER MANAGER ABO/RH (D) RECHECK Routine 09/30/2024 12:04 PM RECRUITER MANAGER B-TYPE NATRIURETIC PEPTIDE (BNP) STAT 09/30/2024 12:04 PM RECRUITER MANAGER C. DIFF BY PCR Routine 09/30/2024 8:50 AM RECRUITER MANAGER CULTURE, STOOL Routine 09/30/2024 8:50 AM RECRUITER MANAGER C. DIFFICILE BY PCR Routine 09/30/2024 8 :50 AM RECRUITER MANAGER LACTIC ACID (LACTATE) STAT 09/30/2024 6:18 AM RECRUITER MANAGER CULTURE, BLOOD Routine 09/30/2024 6:18 AM RECRUITER MANAGER CBC WITH AUTO DIFFERENTIAL Routine 09/30/2024 5:03 AM RECRUITER MANAGER COMPLETE BLOOD COUNT (CBC) WITH DIFF Routine 09/30/2024 5:03 AM RECRUITER MANAGER BASIC METABOLIC PANEL W/ CALCIUM TOTAL Routine 09/30/2024 5:03 AM RECRUITER MANAGER CULTURE, BLOOD Routine 09/30/2024 5:03 AM RECRUITER MANAGER CBC WITH AUTO DIFFERENTIAL STAT 09/30/2024 12:41 AM RECRUITER MANAGER CMP (COMPREHENSIVE METABOLIC PANEL) STAT 09/30/2024 12:41 AM RECRUITER MANAGER ERYTHROCYTE SEDIMENTATION RATE (ESR) STAT 09/30/2024 12:41 AM RECRUITER MANAGER C-REACTIVE PROTEIN (CRP) QUANT STAT 09/30/2024 12:41 AM RECRUITER MANAGER COMPLETE BLOOD COUNT (CBC) WITH DIFF STAT 09/30/2024 12:41 AM RECRUITER MANAGER CRITICAL CARE Routine 09/30/2024 12:15 AM RECRUITER MANAGER RHYTHM STRIP 09/30/2024 12:00 AM RECRUITER MANAGER RHYTHM STRIP 09/30/2024 12:00 AM RECRUITER MANAGER RHYTHM STRIP 09/30/2024 12:[address] ABDOMEN PELVIS W/ CONTRAST Stat with Interpretation 09/29/2024 2:15 PM RECRUITER MANAGER GOLD TOP TUBE STAT 09/29/2024 11:52 AM RECRUITER MANAGER BLUE TOP TUBE STAT 09/29/2024 11:52 AM RECRUITER MANAGER CBC WITH AUTO DIFFERENTIAL STAT 09/29/2024 11:52 AM RECRUITER MANAGER EXTRA TUBES STAT 09/29/2024 11:52 AM RECRUITER MANAGER LIPASE STAT 09/29/2024 11:52 AM RECRUITER MANAGER CMP (COMPREHENSIVE METABOLIC PANEL) STAT 09/29/2024 11:52 AM RECRUITER MANAGER COMPLETE BLOOD COUNT (CBC) WITH DIFF STAT 09/29/2024 11:52 AM RECRUITER MANAGER RSV,SARS-COV-2,INFL UENZA A&B BY PCR STAT 09/29/2024 11:52 AM RECRUITER MANAGER from Last 3 Months Results * PREPARE PLATELETS (10/02/2024 1:55 AM RECRUITER MANAGER) Product Code [id number] [facility] BL OOD BANK Unit Number [id number] SA HC BLOOD BANK UNIT_ABO A [facility] BLOOD BANK UNIT_RH POS [facility] BLOOD BANK Dispense Status TRANSFUSED [facility] BLOOD BANK Blood Expiration Date [id number] [facility] BLOOD BANK Blood Type Barcode 6200 [facility] Product Volume 291 [facility] BLOOD BANK Coding System [id number] [facility] B LOOD BANK Blood Juan R Tyson APRN, CNP BLOOD BANK ORDERABLES F inal Result Performing Organization Address City/[facility]/ZIP Co de Phone Number [facility] BLOOD BANK #1 [place] [address] * Transfuse - Platelets (10/01/2024 11:43 AM RECRUITER MANAGER) us Juan R Tyson APRN, CNP NURSING TREATMENT - BLO OD ADMINISTRATION Final Result * CROSSMATCH W/ ABO & RH, ANTIBODY SCREEN (10/01/2024 6:26 AM RECRUITER MANAGER) ABO TYPING A 10/01/2024 8:25 AM RECRUITER MANAGER [facility] BLOOD BANK RH Positive 10/01/2024 8:25 AM RECRUITER MANAGER [facility] BLOOD BANK ABSC Negative 10/01/2024 8:25 AM RECRUITER MANAGER [facility] BLOOD BANK Blood Venipuncture / Unknown 10/01/2024 6:26 AM RECRUITER MANAGER 10/01/2024 6:26 AM RECRUITER MANAGER us Juan R Tyson APRN, CNP BLOOD BANK ORDERABLES E dited Result - Final Performing Organization Address City/[facility] Co de Phone Number [facility] BLOOD BANK #1 [place] [address] * (ABNORMAL) CBC with Auto Differential (10/01/2024 4:20 AM RECRUITER MANAGER) Only the most recent of4 resultswithin the time period is included. WBC 5.62 4.00 - 12.00 10(3)/mcL 10/01/2024 6:07 AM RECRUITER MANAGER [facility] RBC 4.57 4.40 - 5.80 10(6)/mcL 10/01/2024 6:07 AM RECRUITER MANAGER [facility] HEMOGLOBIN (HGB) 13.4 13.0 - 16.5 g/dL 10/01/2024 6:07 AM [facility] HEMATOCRIT (HCT) 41.8 38.0 - 50.0 % 10/01/2024 6:07 AM [facility] MCV 91.5 82.0 - 96.0 fL 10/01/2024 6:07 AM [facility] MCH 29.3 26.0 - 32.0 pg 10/01/2024 6:07 AM [facility] MCHC 32.1 31.0 - 36.0 g/dL 10/01/2024 6:07 AM [facility] PLATELET COUNT 11(LL) 140 - 440 10(3)/mcL 10/01/2024 6:07 AM [facility] RDW 12.8 11.8 - 15.5 % 10/01/2024 6:07 AM [facility] MPV 15.0(H) 8.0 - 12.6 fL 10/01/2024 6:07 AM [facility] NEUTROPHILS 59.4 40.0 - 68.0 % 10/01/2024 6:07 AM [facility] LYMPHOCYTES 29.2 19.0 - 49.0 % 10/01/2024 6:07 AM [facility] MONOCYTES 9.8 3.0 - 13.0 % 10/01/2024 6:07 AM [facility] EOSINOPHILS 1.2 0.0 - 8.0 % 10/01/2024 6:07 AM [facility] BASOPHILS 0.4 0.0 - 1.0 % 10/01/2024 6:07 AM [facility] ABSOLUTE NEUTROPHILS 3.34 1.40 - 5.30 10(3)/mcL 10/01/2024 6:07 AM [facility] ABSOLUTE LYMPHOCYTES 1.64 0.90 - 3.30 10(3)/mcL 10/01/2024 6:07 AM [facility] ABSOLUTE MONOCYTES 0.55 0.10 - 0.90 10(3)/mcL 10/01/2024 6:07 AM RECRUITER MANAGER [facility] ABSOLUTE EOSINOPHIL 0.07 0.00 - 0.50 10(3)/mcL 10/01/2024 6:07 AM RECRUITER MANAGER [facility] ABSOLUTE BASOPHILS 0.02 0.00 - 0.10 10(3)/mcL 10/01/2024 6:07 AM RECRUITER MANAGER [facility] NRBC PER 100 WBC 0 10/01/19 6:07 AM RECRUITER MANAGER [facility] RESULTS ARE CONSISTENT WITH PERIPHERAL SMEAR REVIEW Yes 10/01/2024 6:07 AM RECRUITER MANAGER [facility] Blood Venipuncture / Unknown 10/01/2024 4:20 AM RECRUITER MANAGER 10/01/2024 5:34 AM RECRUITER MANAGER Narrative [facility] - 10/01/2024 6:07 AM RECRUITER MANAGER Plt estimate correlates with previous Juan R Tyson FLUE GAS ANALYST, [employer] LEADER HEMATOLOGY ORDERABLES F inal Result Performing Organization Address City/[facility]/ZIP Co de Phone Number [facility] #1 [place] [address] * (ABNORMAL) PHOSPHORUS (PO4) (10/01/2024 4:20 AM RECRUITER MANAGER) PHOSPHORUS 1.9(L) 2.5 - 4.5 mg/dL 10/01/2024 6:03 AM RECRUITER MANAGER [facility] Blood Venipuncture / Unknown 10/01/2024 4:20 AM RECRUITER MANAGER 10/01/2024 5:33 AM RECRUITER MANAGER Ghassan Darling MD CHEMISTRY ORDERABLES Final Re sult [facility] #[address] [place] [address] * MAGNESIUM (MG) (10/01/2024 4:20 AM RECRUITER MANAGER) MAGNESIUM 1.9 1.6 - 2.6 mg/dL 10/01/2024 6:03 AM [facility] Blood Venipuncture / Unknown 10/01/2024 4:20 AM RECRUITER MANAGER 10/01/2024 5:33 AM RECRUITER MANAGER us Ghassan Darling MD CHEMISTRY ORDERABLES Final Re sult [facility] #[address] [place] [address] * (ABNORMAL) BMP with Ca, Total (10/01/2024 4:20 AM RECRUITER MANAGER) Only the most recent of2 resultswithin the time period is included. SODIUM 140 136 - 145 mmol/L 10/01/2024 6:03 AM [facility] POTASSIUM 3.5 3.5 - 5.1 mmol/L 10/01/2024 6:03 AM [facility] CHLORIDE 109(H) 98 - 107 mmol/L 10/01/2024 6:03 AM [facility] CO2, VENOUS 25 22 - 30 mmol/L 10/01/2024 6:03 AM [facility] ANION GAP 9.5 <18.0 mmol/L 10/01/2024 6:03 AM [facility] GLUCOSE 94 70 - 99 mg/dL 10/01/2024 6:03 AM [facility] BUN 11 8 - 26 mg/dL 10/01/2024 6:03 AM [facility] CREATININE, BLOOD 0.74 0.70 - 1.30 mg/dL 10/01/2024 6:03 AM [facility] BUN/CREATININE RATIO 15 12 - 20 ratio 10/01/2024 6:03 AM [facility] CALCIUM 7.9(L) 8.7 - 10.5 mg/dL 10/01/2024 6:03 AM [facility] GFR, ESTIMATED >60 >=60 10/01/2024 6:03 AM RECRUITER MANAGER [facility] Comment: Creatinine Clearance is the preferred criteria for selecting drug dose adjustments in renally impaired patients. The GFR is provided as additional pertinent clinical information. GFR is reported in mL/min/1.73 sq m. Calculation based on the Chronic Kidney Disease Epidemiology Collaboration (CKD- EPI) equation refit without adjustment for race. GFR, EST. >60 >=60 025 6:03 AM RECRUITER MANAGER [facility] GFR, EST. NONAFRICAN >60 >=60 10/01/2024 6:03 AM RECRUITER MANAGER [facility] Blood Venipuncture / Unknown 10/01/2024 4:20 AM RECRUITER MANAGER 10/01/2024 5:33 AM RECRUITER MANAGER us Juan R Tyson FLUE GAS ANALYST, [employer] GROUP LEADER CHEMISTRY ORDERABLES Fi nal Result Performing Organization Address City/[facility]/ZIP Co de Phone Number [facility] [place] [address] * RHYTHM STRIP (10/01/2024 12:00 AM RECRUITER MANAGER) Only the most recent of5 resultswithin the time period is included. 10/01/2024 us Provider Scan IMG ECG ORDERABLES Final Result RESULTING AGENCY * ABO/RH (D) RECHECK (09/30/2024 12:04 PM RECRUITER MANAGER) ABO TYPING A 10/01/2024 8:28 AM RECRUITER MANAGER [facility] BLOOD BANK RH Positive 10/01/2024 8:28 AM RECRUITER MANAGER [facility] BLOOD BANK Blood Venipuncture / Unknown 09/30/2024 12:04 PM RECRUITER MANAGER 10/01/2024 7:44 AM RECRUITER MANAGER Ruben Valdez MD PhD BLOOD BANK ORDERABLES Final Result [facility] BLOOD BANK #1 [place] [address] * (ABNORMAL) B-Type Natriuretic Peptide (BNP) (09/30/2024 12:04 PM RECRUITER MANAGER) Pathologist [facility] B TYPE NATRIURETIC PEPTIDE 122(H) <100 pg/mL 09/30/2024 12:36 PM RECRUITER MANAGER [facility] Blood Venipuncture / Unknown 09/30/2024 12:04 PM RECRUITER MANAGER 09/30/2024 12:07 PM RECRUITER MANAGER us Ghassan Darling MD CHEMISTRY ORDERABLES Final Re sult [facility] #[address] [place] [address] * C. DIFF BY PCR (09/30/2024 8:50 AM RECRUITER MANAGER) [facility] C DIFF TOXIN DNA BY PCR Negative Negative, Invalid 09/30/2024 9:42 AM RECRUITER MANAGER [facility] Other STOOL SPECIMEN / Unknown Non-Phlebotomy Collection / Unknown 09/30/2024 8:50 AM RECRUITER MANAGER 09/30/2024 8:53 AM RECRUITER MANAGER us Juan R Tyson APRN, [employer] LEADER MICROBIOLOGY - GENERAL ORDERABLES Final Result Performing Organization Address City/[facility]/ZIP Co de Phone Number [facility] [place] [address] * Culture, Stool (09/30/2024 8:50 AM RECRUITER MANAGER) [facility] CULTURE RESULTS NO SALMONELLA, SHIGELLA OR E COLI 0157 ISOLATED 10/01/2024 1:52 PM RECRUITER MANAGER [facility] CULTURE RESULTS NEGATIVE FOR CAMPYLOBACTER ANTIGEN 10/01/2024 1:52 PM RECRUITER MANAGER [facility] CULTURE RESULTS SHIGA TOXIN 1 AND SHIGA TOXIN 2 NOT DETECTED 10/01/2024 1:52 PM RECRUITER MANAGER [facility] CULTURE RESULTS Few Probable usual lia for this specimen source 10/01/2024 1:52 PM RECRUITER MANAGER [facility] Culture STOOL SPECIMEN / Unknown Non-Phlebotomy Collection / Unknown 09/30/2024 8:50 AM RECRUITER MANAGER 09/30/2024 8:53 AM RECRUITER MANAGER us Juan R Tyson APRN, REINALDO MICROBIOLOGY - GENERAL ORDERABLES Final Result Performing Organization Address City/[facility]/ZIP Co de Phone Number [facility] [address] [place] [address], [place] * Lactic Acid (Lactate) (09/30/2024 6:18 AM RECRUITER MANAGER) LACTIC ACID 1.0 0.7 - 2.0 mmol/L 09/30/2024 6:50 AM RECRUITER MANAGER [facility] Blood Venipuncture / Unknown 09/30/2024 6:18 AM RECRUITER MANAGER 09/30/2024 6:38 AM RECRUITER MANAGER us Juan R Tyson APRN, REINALDO CHEMISTRY ORDERABLES Fi nal Result Performing Organization Address [facility] Co de Phone Number [facility] [place] [address] * Culture, Blood (09/30/2024 6:18 AM RECRUITER MANAGER) Only the most recent of2 resultswithin the time period is included. CULTURE RESULTS NO GROWTH WITHIN 5 DAYS, FINAL RESULT 10/05/2024 7:00 AM RECRUITER MANAGER [facility] Culture (Peripheral Vein) Venipuncture / Unknown 09/30/2024 6:18 AM RECRUITER MANAGER 09/30/2024 6:36 AM RECRUITER MANAGER us Juan R Tyson APRN, REINALDO MICROBIOLOGY - GENERAL ORDERABLES Final Result [facility] [address] [place] [address], [place] * Sed Rate (Esr) [id number] (09/30/2024 12:41 AM RECRUITER MANAGER) ESR (SED RATE, ERYTHROCYTE SEDIMENTATION RATE) 8 <20 mm/h 09/30/2024 1:10 AM [facility] Comment: Patients presenting with increased level of fibrinogen, gamma globulins, or abnormally shaped RBCs could affect the results for the erythrocyte sedimentation rate (ESR). Results should be clinically correlated. Blood Venipuncture / Unknown 09/30/2024 12:41 AM RECRUITER MANAGER 09/30/2024 1:00 AM RECRUITER MANAGER us Manuel Coppola MD HEMATOLOGY ORDERABLES Fin al Result [facility] [place] [address] * (ABNORMAL) CMP (Comprehensive Metabolic Panel) (09/30/2024 12:41 AM RECRUITER MANAGER) Only the most recent of2 resultswithin the time period is included. Pathologist [facility] SODIUM 140 136 - 145 mmol/L 09/30/2024 1:32 AM [facility] POTASSIUM 3.6 3.5 - 5.1 mmol/L 09/30/2024 1:32 AM [facility] CHLORIDE 107 98 - 107 mmol/L 09/30/2024 1:32 AM [facility] CO2, VENOUS 26 22 - 30 mmol/L 09/30/2024 1:32 AM [facility] ANION GAP 10.6 <18.0 mmol/L 09/30/2024 1:32 AM [facility] GLUCOSE 118(H) 70 - 99 mg/dL 09/30/2024 1:32 AM [facility] BUN 12 8 - 26 mg/dL 09/30/2024 1:32 AM [facility] CREATININE, BLOOD 0.85 0.70 - 1.30 mg/dL 09/30/2024 1:32 AM [facility] BUN/CREATININE RATIO 14 12 - 20 ratio 09/30/2024 1:32 AM [facility] TOTAL PROTEIN 7.0 6.0 - 8.0 g/dL 09/30/2024 1:32 AM [facility] ALBUMIN 3.7 3.5 - 5.0 g/dL 09/30/2024 1:32 AM [facility] A/G RATIO 1.1 1.0 - 2.2 09/30/2024 1:32 AM [facility] CALCIUM 8.2(L) 8.7 - 10.5 mg/dL 09/30/2024 1:32 AM [facility] T BILI 0.5 0.2 - 1.2 mg/dL 09/30/2024 1:32 AM [facility] SGOT (AST) 22 6 - 42 U/L 09/30/2024 1:32 AM [facility] SGPT (ALT) 16 6 - 55 U/L 09/30/2024 1:32 AM [facility] ALKALINE PHOSPHATASE 45 40 - 150 U/L 09/30/2024 1:32 AM [facility] GFR, ESTIMATED >60 >=60 09/30/2024 1:32 AM [facility] Comment: Creatinine Clearance is the preferred criteria for selecting drug dose adjustments in renally impaired patients. The GFR is provided as additional pertinent clinical information. GFR is reported in mL/min/1.73 sq m. Calculation based on the Chronic Kidney Disease Epidemiology Collaboration (CKD- EPI) equation refit without adjustment for race. GFR, EST. >60 >=60 025 1:32 AM RECRUITER MANAGER [facility] GFR, EST. NONAFRICAN >60 >=60 09/30/2024 1:32 AM [facility] Blood Venipuncture / Unknown 09/30/2024 12:41 AM RECRUITER MANAGER 09/30/2024 1:00 AM RECRUITER MANAGER us Manuel Coppola MD CHEMISTRY ORDERABLES Trena yonny Result [facility] [place] [address] * (ABNORMAL) C-Reactive Protein Qnt (Crp) (09/30/2024 12:41 AM RECRUITER MANAGER) C-REACTIVE PROTEIN 4.48(H) <0.50 mg/dL 09/30/2024 1:19 AM RECRUITER MANAGER [facility] Blood Venipuncture / Unknown 09/30/2024 12:41 AM RECRUITER MANAGER 09/30/2024 1:00 AM RECRUITER MANAGER Manuel Coppola MD CHEMISTRY ORDERABLES Trena l Result [facility] [address] [place] [address] * Critical Care (09/30/2024 12:15 AM RECRUITER MANAGER) Narrative Manuel Coppola MD - 09/30/2024 12:15 AM RECRUITER MANAGER Manuel Coppola MD 09/30/2024 1:02 AM Critical Care Performed by: Manuel Coppola MD Authorized by: Manuel Coppola MD Critical care provider statement: Critical care time (minutes): 35 Critical care time was exclusive of: Separately billable procedures and treating other patients Critical care was necessary to treat or prevent imminent or life-threatening deterioration of the following conditions: Colitis. Critical care was time spent personally by me on the following activities: Development of treatment plan with patient or surrogate, evaluation of patient's response to treatment, examination of patient, obtaining history from patient or surrogate, review of old charts, re-evaluation of patient's condition, pulse oximetry, ordering and review of radiographic studies, ordering and review of laboratory studies and ordering and performing treatments and interventions I assumed direction of critical care for this patient from another provider in my specialty: no Care discussed with: admitting provider us Manuel Coppola MD PROCEDURE/MINOR SURGICAL ORDERABLES Final Result * CT ABDOMEN PELVIS W/ CONTRAST (09/29/2024 2:15 PM RECRUITER MANAGER) Anatomical Region Laterality Modality Abdomen N/A Computed Tomogra phy 09/29/2024 2:40 PM RECRUITER MANAGER Impressions 09/29/2024 2:42 PM RECRUITER MANAGER IMPRESSION: 1. Fluid throughout the colon representing a diarrheal state and possibly mild colitis. Otherwise no acute finding. Narrative 09/29/2024 2:42 PM RECRUITER MANAGER EXAM DESCRIPTION: CT ABDOMEN PELVIS W/ CONTRAST REASON FOR STUDY: N/V/D, lethargy, abdominal pain since this morning. Hx of HTN TECHNIQUE: CT scan of the abdomen and pelvis performed with intravenous and without oral contrast using helical scanning technique with dynamic intravenous contrast injection. Reconstructed coronal and sagittal MPR images reviewed. All images stored on PACS. Automated exposure control was used as a dose optimization technique for this examination. CONTRAST TYPE/DOSE: 119mL of IOPAMIDOL 76 % IV SOLN injected via Intravenous COMPARISON: None available FINDINGS: LOWER CHEST: No significant pulmonary abnormalities. No effusion. LIVER: No suspicious lesion. Tiny probable cyst. GALLBLADDER: Normal BILE DUCTS: No intrahepatic or extrahepatic ductal dilatation. SPLEEN: Normal size. No focal lesions. PANCREAS: No identified cystic or solid masses. No significant calcifications. No adjacent inflammation or peripancreatic fluid collections. Pancreatic duct not dilated. ADRENALS: Normal. KIDNEYS/URINARY TRACT: No identified significant cystic or solid masses. No visualized stones. No hydronephrosis or hydroureter. Symmetric enhancement. Urinary bladder is unremarkable. GI: Clips are seen adjacent to the gastroesophageal junction probably from hiatal hernia repair. Normal appendix. No evidence of obstruction. No bowel wall thickening. Fluid is seen within the colon consistent with a diarrheal state. PERITONEUM: There are small peritoneal calcification seen anteriorly in the left hemiabdomen seen on series 2, image 128 which measures about 10 mm. 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 There is haziness in the mesentery. RETROPERITONEUM: No mass or adenopathy. REPRODUCTIVE: No significant abnormality. VASCULATURE: Moderate to severe atherosclerosis. There is ectasia of the infrarenal aorta measuring 2.8 cm. 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 MUSCULOSKELETAL: Moderate multilevel degenerative changes of the lumbar spine and thoracic spine. Moderate hip osteoarthritis. OTHER: No other abnormality. THIS IS AN ELECTRONICALLY VERIFIED FINAL REPORT 09/29/2024 2:40 PM - Electronically signed by Armando Ojeda M.D. KN: JOSE L Report ID: [id number] Reading Location: [id number] Procedure Note Armando Ojeda MD - 09/29/2024 EXAM DESCRIPTION: CT ABDOMEN PELVIS W/ CONTRAST REASON FOR STUDY: N/V/D, lethargy, abdominal pain since this morning. Hx of HTN TECHNIQUE: CT scan of the abdomen and pelvis performed with intravenous and without oral contrast using helical scanning technique with dynamic intravenous contrast injection. Reconstructed coronal and sagittal MPR images reviewed. All images stored on PACS. Automated exposure control was used as a dose optimization technique for this examination. CONTRAST TYPE/DOSE: 119mL of IOPAMIDOL 76 % IV SOLN injected via Intravenous COMPARISON: None available FINDINGS: LOWER CHEST: No significant pulmonary abnormalities. No effusion. LIVER: No suspicious lesion. Tiny probable cyst. GALLBLADDER: Normal BILE DUCTS: No intrahepatic or extrahepatic ductal dilatation. SPLEEN: Normal size. No focal lesions. PANCREAS: No identified cystic or solid masses. No significant calcifications. No adjacent inflammation or peripancreatic fluid collections. Pancreatic duct not dilated. ADRENALS: Normal. KIDNEYS/URINARY TRACT: No identified significant cystic or solid masses. No visualized stones. No hydronephrosis or hydroureter. Symmetric enhancement. Urinary bladder is unremarkable. GI: Clips are seen adjacent to the gastroesophageal junction probably from hiatal hernia repair. Normal appendix. No evidence of obstruction. No bowel wall thickening. Fluid is seen within the colon consistent with a diarrheal state. PERITONEUM: There are small peritoneal calcification seen anteriorly in the left hemiabdomen seen on series 2, image 128 which measures about 10 mm. 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 There is haziness in the mesentery. RETROPERITONEUM: No mass or adenopathy. REPRODUCTIVE: No significant abnormality. VASCULATURE: Moderate to severe atherosclerosis. There is ectasia of the infrarenal aorta measuring 2.8 cm. 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 MUSCULOSKELETAL: Moderate multilevel degenerative changes of the lumbar spine and thoracic spine. Moderate hip osteoarthritis. OTHER: No other abnormality. THIS IS AN ELECTRONICALLY VERIFIED FINAL REPORT 09/29/2024 2:40 PM - Electronically signed by Armando DOMINGO: JOSE L Report ID: [id number] Reading Location: [id number] IMPRESSION: 1. Fluid throughout the colon representing a diarrheal state and possibly mild colitis. Otherwise no acute finding. Gerry Jackson MD IMG CT ORDERABLES Trena l Result * KYLE-COV-2 Flu RSV - (Quad PCR) (09/29/2024 11:52 AM RECRUITER MANAGER) FLU A Negative Negative, Error 09/29/2024 12:54 PM RECRUITER MANAGER [facility] FLU B Negative Negative 09/29/2024 12:54 PM RECRUITER MANAGER [facility] RESP SYNC VIRUS Negative Negative 12:54 PM RECRUITER MANAGER [facility] SARSCOV2 NOT DETECTED (Reference Range for this test is Not Detected) 09/29/2024 12:54 PM RECRUITER MANAGER [facility] Comment:This test was perfor med by a Reverse Substance Abuse Nurse PCR Method. Swab NASOPHARYNGEAL SWAB / Unknown Non-Phlebotomy Collection / Unknown 09/29/2024 11:52 AM RECRUITER MANAGER 09/29/2024 12:08 PM RECRUITER MANAGER Gerry Jackson MD MICROBIOLOGY - GENERAL ORDERABLES Final Result [facility] [address] [place] [address] * Gold Top Tube (09/29/2024 11:52 AM RECRUITER MANAGER) Blood No Phlebotomy Charged / Unknown 09/29/2024 11:52 AM RECRUITER MANAGER 09/29/2024 11:56 AM RECRUITER MANAGER Gerry Jackson MD CHEMISTRY ORDERABLES F inal Result [facility] [address] [place] [address] * Blue Top Tube (09/29/2024 11:52 AM RECRUITER MANAGER) Blood No Phlebotomy Charged / Unknown 09/29/2024 11:52 AM RECRUITER MANAGER 09/29/2024 11:56 AM RECRUITER MANAGER Gerry Jackson MD HEMATOLOGY ORDERABLES Final Result Performing Organization Address City/[facility] Co de Phone Number [facility] [address] [place] [address] * (ABNORMAL) Lipase (09/29/2024 11:52 AM RECRUITER MANAGER) LIPASE 116(H) 8 - 78 U/L 09/29/2024 12:23 PM RECRUITER MANAGER [facility] Blood Venipuncture / Unknown 09/29/2024 11:52 AM RECRUITER MANAGER 09/29/2024 11:55 AM RECRUITER MANAGER Gerry Jackson MD CHEMISTRY ORDERABLES F inal Result Performing Organization Address [facility] de Phone Number [facility] [address] [place] [address] from Last 3 Months Insurance MEDICARE C [employer] Advance Directives * Full Code (Latest Code Status on File) Date Activated Date Inactivated Comments 09/30/2024 1:57 AM CPR-Full Treat ment: FULL ARREST: Attempt Resuscitation/CPR wit intubation and mechanical ventilation. PRE-ARREST: Use entire range of life support measures to stabilize the patient. Care Teams Flatbed Stitcher Relationship Specialty Start Date End Date Kody Ahmadi MD [address] [place] [address] PCP - General Family Medicine 02/13/23
--- OUTSIDE RECORDS SUMMARY | 2024-10-17 18:07 | XMS_ITS | Patient Health Summary ---
Author Organization [facility] Address [address] [place] [address] Care Team Providers Care Mat Making Machine Tender Name Role Phone Manuel Andrews MD Primary Care Provider [phone] Shiv Magallanes DPM Unavailable [phone] Note from [facility],non-owned Affiliates and Associated Physician Practices is amultiple site organization consisting of ambulatory clinics and hospital sitesin [place], [place], [place] and [place]. This disclosure is being madepursuant to the Care Everywhere program and may not contain all information available regarding this patient. Last updated 18.[facility] Allergies No known active allergies Medications * Be aware that medications may not be up to date on this document. Alwaysverify current medications with the patient. * lisinopril (PRINIVIL; ZESTRIL) 20 MG tablet Take 20 mg by mouth 2 times daily. * Acetaminophen (EXTRA STRENGTH PAIN RELIEF PO) Take by mouth. * folic acid 400 MCG tablet Take 800 mcg by mouth once daily. * methotrexate 2.5 MG tablet(Started 08/28/2014) Take 8 Tabs by mouth every 7 days. 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 Immunizations * PNEUMOCOCCAL PPSV23(Given 06/07/2014) * Pneumococcal Pcv13 Conj(Given 06/07/2014) * ZOSTER VACCINE, LIVE(Given 04/07/2014) Social History Tobacco Use Types Packs/Day Years Used Date Smoking Tobacco: Former Smokeless Tobacco: Never Alcohol Use Standard Drinks/Week Comments Yes 0 (1 standard drink = 0.6 oz pur e alcohol) 1 drink per month Sex and Gender Information Value Date Recorded Sex Assigned at Not on file Gender Identity Not on file Sexual Orientation Not on file Last Filed Vital Signs Vital Sign Reading Time Taken Comments Blood Pressure 146/94 06/20/2015 12:38 PM CDT Pulse 66 06/20/2015 12:38 PM CDT Temperature - - Respiratory Rate - - Oxygen Saturation - - Inhaled Oxygen Concentration - - Weight 126.6 kg (279 lb) 06/20/2015 12:38 PM CDT Height 177.8 cm (5' 10 ) 06/20/2015 12:38 PM CDT Body Mass Index 40.03 06/20/2015 12:38 PM CDT Procedures * DERMATOPATHOLOGY(Performed 01/02/2022) * DERMATOPATHOLOGY(Performed 05/28/2021) * DERMATOPATHOLOGY(Performed 04/23/2021) * C-REACTIVE PROTEIN(Performed 06/20/2015) Performed for Psoriatic spondylitis ([facility]) * COMPREHENSIVE METABOLIC PANEL(Performed 06/20/2015) Performed for High risk medications (not anticoagulants) long-term use * CBC W AUTO DIFFERENTIAL(Performed 06/20/2015) Performed for High risk medications (not anticoagulants) long-term use * C-REACTIVE PROTEIN(Performed 01/18/2015) Performed for PSA (psoriatic arthritis) ([facility]) * COMPREHENSIVE METABOLIC PANEL(Performed 01/18/2015) Performed for High risk medications (not anticoagulants) long-term use * CBC W AUTO DIFFERENTIAL(Performed 01/18/2015) Performed for Chronic ITP (idiopathic thrombocytopenia) ([facility]), High risk medications (not anticoagulants) long-term use * C-REACTIVE PROTEIN(Performed 10/03/2014) Performed for PSA (psoriatic arthritis) ([facility]) * COMPREHENSIVE METABOLIC PANEL(Performed 10/03/2014) Performed for High risk medications (not anticoagulants) long-term use * CBC W AUTO DIFFERENTIAL(Performed 10/03/2014) Performed for High risk medications (not anticoagulants) long-term use * CBC W AUTO DIFFERENTIAL(Performed 07/03/2014) * PLATELET ESTIMATE REFLEXED(Performed 07/03/2014) * XR PELVIS W BILAT HIP 2VW(Performed 06/12/2014) Performed for High risk medications (not anticoagulants) long-term use * URIC ACID BLOOD(Performed 06/07/2014) Performed for High risk medications (not anticoagulants) long-term use * C-REACTIVE PROTEIN(Performed 06/07/2014) Performed for Psoriatic arthritis ([facility]) * CBC W AUTO DIFFERENTIAL(Performed 06/07/2014) Performed for High risk medications (not anticoagulants) long-term use * COMPREHENSIVE METABOLIC PANEL(Performed 06/07/2014) Performed for High risk medications (not anticoagulants) long-term use * LAB RESULTS ORDER(Performed 01/30/2014) Results * DERMATOPATHOLOGY (01/02/2022 12:00 AM CDT) Only the most recent of3 resultswithin the time period is included. Case Report Dermatopathology Report Case: [id number] Authorizing Provider: Janette Palomo MD Collected: 01/02/2022 12:00 AM Ordering Location: [facility] Received: 01/03/2022 07:16 AM Pathologist: Janett Stoddard MD Specimen: Skin, right back 1:14 PM T DERMATOPATHOLOGY LABORATORY Final Diagnosis Specimen A. SKIN, right back: EPIDERMOID CYST (L72.0) 1:14 PM T DERMATOPATHOLOGY LABORATORY Clinical History R/O: Cyst 1:14 PM CDT DERMATOPATHOLOGY LABORATORY Gross Description Specimen A: Received is one formalin filled container labeled with the patient's name and designated right back. The specimen consists of a [id number] piece of skin. The specimen is serially sectioned and a inside technical sales representative section is submitted in cassette 1. Jar 1. 1:14 PM CDT DERMATOPATHOLOGY LABORATORY Microscopic Description Specimen A. SKIN, right back: Within the dermis, there is a space lined by epithelium that resembles normal epidermis and the infundibular portion of the hair follicle. 1:14 PM CDT DERMATOPATHOLOGY LABORATORY Disclaimer An external and internal positive and negative controls are appropriate for the histochemical, immunohistochemical and immunofluorescence stain(s) in this case (if any), except where stated explicitly. The performance characteristics of the stain(s) cited in this report were developed and its performance characteristic determined by the Dermatopathology Laboratory at [facility], directed by Dr. Adenike Hodgson. These tests need not be, and therefore are not, approved by the [place] Food and Drug Administration. The tests are used for clinical purposes. Billing Codes Specimen Charges Stain Charges 04581 1 2 1:14 PM CDT DERMATOPATHOLOGY LABORATORY Embedded Images 2 1:14 PM CDT DERMATOPATHOLOGY LABORATORY Pathology/Cytolog y TISSUE SPECIMEN FROM SKIN / Unknown 01/02/2022 01/03/2022 7:16 AM CDT Janette Palomo MD LAB - PATHOLOGY/CYTO LOGY ORDERABLES DERMATOPATHOLOGY LABORATORY [facility] Department of Dermatology [address] [phone] * C-REACTIVE PROTEIN (06/20/2015 1:21 PM CDT) Only the most recent of4 resultswithin the time period is included. C-Reactive Protein <0.29 <0.30 mg/dL [facility] ACCOUNT BILL Blood specimen (specimen) BLOOD SPECIMEN / Unknown 06/20/2015 1:21 PM CDT 06/20/2015 6:27 PM CDT Narrative Resulting Agency Comment [facility] [address] [place] [id number] Johnny Thomas MD LAB - CHEMISTRY JEFFREY METCALF [facility] ACCOUNT BILL * (ABNORMAL) CBC W AUTO DIFFERENTIAL (06/20/2015 1:21 PM CDT) Only the most recent of5 resultswithin the time period is included. WBC 5.8 4.4 - 10.7 x10E9/L [facility] ACCOUNT BILL RBC 4.99 3.80 - 5.40 x10E12/L [facility] ACCOUNT BILL Hemoglobin 15.1 12.0 - 17.6 gm/dL [facility] ACCOUNT BILL Hematocrit 47.4 35.2 - 51.7 % [facility] ACCOUNT BILL MCV 95.0 80.7 - 98.3 fL [facility] ACCOUNT BILL MCH 30.3 26.7 - 34.0 pg [facility] ACCOUNT BILL MCHC 31.9 30.8 - 35.9 gm/dL [facility] ACCOUNT BILL RDW 14.5 12.1 - 14.9 % [facility] ACCOUNT BILL Platelet Count 68(L) 153 - 416 x10E9/L [facility] ACCOUNT BILL Comment:MPV FL BLOOD (SSM) 1 2.4 fl 9.4-12.9 Granulocytes % 52.3 44.0 - 73.0 % [facility] ACCOUNT BILL Lymphocytes % 33.6 20.0 - 43.0 % [facility] ACCOUNT BILL Monocytes % 7.4 5.0 - 13.0 % [facility] ACCOUNT BILL Eosinophils % 4.8 0.0 - 6.0 % [facility] ACCOUNT BILL Basophils % 1.6 0.0 - 2.0 % [facility] ACCOUNT BILL Granulocytes Absolute 3.02 2.01 - 7.14 x10E9/L [facility] ACCOUNT BILL Lymphocytes Absolute 1.94 1.07 - 3.94 x10E9/L [facility] ACCOUNT BILL Monocytes Absolute 0.43 0.26 - 1.07 x10E9/L [facility] ACCOUNT BILL Eosinophils Absolute 0.28 0 - 0.47 x10E9/L [facility] ACCOUNT BILL Basophils Absolute 0.09(H) 0 - 0.08 x10E9/L [facility] ACCOUNT BILL Immature Granulocytes 0.3 0 - 1 % [facility] ACCOUNT BILL Immature Granulocytes Absolute 0.02 0.00 - 0.06 x10E9/L [facility] ACCOUNT BILL nRBC 0 /100 WBC [facility] ACCOUNT BILL Blood specimen (specimen) BLOOD SPECIMEN / Unknown 06/20/2015 1:21 PM CDT 06/20/2015 6:27 PM CDT Narrative Resulting Agency Comment [facility] [address] [place] [id number] Johnny Thomas MD LAB - HEMATOLOGY ORD ERABLES [facility] ACCOUNT BILL * COMPREHENSIVE METABOLIC PANEL (06/20/2015 1:21 PM CDT) Only the most recent of4 resultswithin the time period is included. Glucose 86 74 - 106 mg/dL [facility] ACCOUNT BILL BUN 12 7 - 21 mg/dL [facility] ACCOUNT BILL Creatinine 0.84 0.50 - 1.30 mg/dL [facility] ACCOUNT BILL eGFR by MDRD >60 >60 mL/min/1.7 3m2 [facility] ACCOUNT BILL eGFR by MDRD >60 >60 mL/min/1.7 3m2 [facility] ACCOUNT BILL Sodium 139 136 - 145 mmol/L [facility] ACCOUNT BILL Potassium 4.2 3.5 - 5.1 mmol/L [facility] ACCOUNT BILL Chloride 103 98 - 107 mmol/L [facility] ACCOUNT BILL CO2 28 22 - 31 mmol/L [facility] ACCOUNT BILL Calcium 8.9 8.5 - 10.1 mg/dL [facility] ACCOUNT BILL Protein Total 7.0 6.4 - 8.2 gm/dL [facility] ACCOUNT BILL Albumin 3.9 3.4 - 5.0 gm/dL [facility] ACCOUNT BILL Bilirubin Total 0.6 0.2 - 1.0 mg/dL [facility] ACCOUNT BILL Alkaline Phosphatase 46 38 - 126 U/L [facility] ACCOUNT BILL AST 39 5 - 40 U/L [facility] ACCOUNT BILL ALT 47 12 - 78 U/L [facility] ACCOUNT BILL Blood specimen (specimen) BLOOD SPECIMEN / Unknown 06/20/2015 1:21 PM CDT 06/20/2015 6:27 PM CDT Narrative Resulting Agency Comment [facility] [address] [place] [id number] Johnny Thomas MD LAB - CHEMISTRY JEFFREY METCALF [facility] ACCOUNT BILL * (ABNORMAL) PLATELET ESTIMATE REFLEXED (PO REF LAB) (07/03/2014 10:43 AM TORCH STRAIGHTENER) Platelet Estimation DECREASED (A) [facility] Comment: Test Performed at: [facility] [place] [address] [place] [address] VALDEMAR BERNARDO DO,MPH 07/03/2014 10:4 3 AM TORCH STRAIGHTENER 07/03/2014 10:44 AM TORCH STRAIGHTENER Johnny Thomas MD LAB - HEMATOLOGY ORD ERABLES [facility] [address] [place] [address] * XR HIPS BILAT 2VWS W PELVIS (06/12/2014 1:35 PM CDT) Anatomical Region Laterality Modality Pelvis, Lower Extremity Other Narrative 06/12/2014 1:35 PM CDT Johnny Thomas MD 06/12/2014 1:35 PM 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 Johnny Thomas MD DIAGNOSTIC IMAGING O RDERABLES * URIC ACID BLOOD (06/07/2014 3:04 PM CDT) Uric Acid 5.4 3.7 - 8.6 mg/dL [facility] ACCOUNT BILL Comment:Therapeutic target f or gout patients: <6.0 Blood specimen (specimen) BLOOD SPECIMEN / Unknown 06/07/2014 3:04 PM CDT 06/07/2014 6:24 PM CDT Narrative Resulting Agency Comment [facility] [address] [id number] Johnny Thomas MD LAB - CHEMISTRY JEFFREY METCALF [facility] ACCOUNT BILL * LAB RESULTS ORDER (01/30/2014) Johnny Thomas MD LAB - THERAPEUTIC DR ORTEGA MONITORING ORDERABLES Care Teams Mat Making Machine Tender Relationship Specialty Start Date End [place] [address] PCP - General Internal Medicine 06/07/14 [place] [address] Podiatry 06/07/14
--- OUTSIDE RECORDS SUMMARY | 2024-10-17 18:07 | XMS_ITS | Clinical Summary ---
Author Organization [facility] Address [address] [place] [address] Care Team Providers Care Mate First Name Role Phone Manuel Andrews MD Primary Care Provider [phone] Shiv Magallanes DPM Unavailable [phone] Source Comments [facility],non-owned Affiliates and Associated Physician Practices is amultiple site organization consisting of ambulatory clinics and hospital sitesin [place], [place], [place] and [place]. This disclosure is being madepursuant to the Care Everywhere program and may not contain all information available regarding this patient. Last updated 18.[facility] Allergies No known active allergies Medications * Be aware that medications may not be up to date on this document. Alwaysverify current medications with the patient. Medication Sig Dispensed Refills Start Date End Date Status lisinopril (PRINIVIL; ZESTRIL) 20 MG tablet Take 20 mg by mouth 2 times daily. Active Acetaminophen (EXTRA STRENGTH PAIN RELIEF PO) Take by mouth. Activ e folic acid 400 MCG tablet Take 800 mcg by mouth once daily. Active methotrexate 2.5 MG tablet Take 8 Tabs by mouth every 7 days. 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 Overview (06/12/2014): Psoriasis developed at age 50 and while [...] alpha blocking medication along with methotrexate soon Immunizations Name Administration Dates Next Due PNEUMOCOCCAL PPSV23 06/07/2014 Pneumococcal Pcv13 Conj 06/07/2014 ZOSTER VACCINE, LIVE 04/07/2014 Social History Tobacco Use Types [...] Mass Index 40.03 06/20/2015 12:38 PM CDT Plan of Treatment Health Maintenance Due Date Last Done Comments COLOGUARD (AGES 45-75) - COL ON CA SCREENING 1950 COLON MONITORING 1950 COLONOSCOPY - COLON CA SCREENING 1950 CT COLONOGRAPHY - COLON CA SCREENING 1950 Colorectal Cancer Screening 1950 FIT - COLON CA SCREENING 1950 FLEX SIG - COLON CA SCREENING 1950 LIPID TESTING 1950 HEPATITIS C SCREENING 07/13/1968 DTAP/TDAP/TD VACCINES (1 - Tdap) 1969 Respiratory Syncytial Virus (RSV) Vaccine Pt: or over 60 yrs (1 - Risk 60-74 years 1-dose series) 2010 ZOSTER VACCINE (2 of 3) 06/02/2014 04/07/2014 AAA SCREENING 2015 PNEUMOCOCCAL VACCINE 50+ (3 of 3 - PCV20 or PCV21) 06/07/2019 06/07/2014, 06/07/2014 COVID-19 VACCINE (2023-2 5 season) 2024 INFLUENZA VACCINE (#1) 2024 DEPRESSION SCREENING 08/31/2024 MEDICARE AWV CALENDAR YEAR 2024 HEPATITIS B VACCINE Aged Out No longe r eligible based on patient's age to complete this topic HIB VACCINE Aged Out No longer eligi ble based on patient's age to complete this topic HPV VACCINE Aged Out No longer eligi ble based on patient's age to complete this topic MENINGOCOCCAL (Group B) VACCINE Aged Out No longer eligible b ased on patient's age to complete this topic MENINGOCOCCAL VACCINE Aged Out No helen celestine eligible based on patient's age to complete this topic Care Teams Mate First Relationship Specialty Start Date [place] [address] PCP - General Internal Medicine 06/07/14 Shiv Magallanes DPM [address] [place] [id number] Podiatry 06/07/14
--- OUTSIDE RECORDS SUMMARY | 2024-10-17 18:07 | XMS_ITS | Referral Summary ---
Author Organization [facility] Address [address] [place] [address] Care Team Providers Care Wind Science And Planning Name Role Phone Manuel Andrews MD Primary Care Provider [phone] Shiv Magallanes DPM Unavailable [phone] Source Comments [facility],non-owned Affiliates and Associated Physician Practices is amultiple site organization consisting of ambulatory clinics and hospital sitesin [place], [place], [place] and [place]. This disclosure is being madepursuant to the Care Everywhere program and may not contain all information available regarding this patient. Last updated 18.[facility] Allergies No known active allergies Medications * [...] 06/20/2015 12:38 PM CDT Plan of Treatment Not on file Administered Medications Care Teams Wind Science And Planning Relationship Specialty Start Date End Date Manuel Andrews MD [address] [place] [address] PCP - General Internal Medicine 06/07/14 Shiv Magallanes DPM [address] [place] [address] Podiatry 06/07/14
--- OUTSIDE RECORDS SUMMARY | 2024-10-17 18:07 | XMS_ITS | Clinical Summary ---
Author Organization [facility] Nicholas shearer [address]ov[address] Address [address] [place] [address] Care Team Providers Care Fine Dining Server Name Role Phone Kody Ahmadi MD Primary Care Provider [phone] Allergies No known active allergies Medications atorvastatin (LIPITOR) 40 mg tablet Take 40 mg by mouth daily. 11/27/2022 Active cyanocobalamin (VITAMIN B-12) 100 mcg tablet Take 100 mcg by mouth daily. Active folic acid (FOLVITE) 1 mg tablet Take 1 mg by mouth daily. Active amLODIPine (NORVASC) 2.5 mg tablet Take 2.5 mg by mouth daily. Active Active Problems No known active problems Encounters Date Type Department Care Team Description 10/17/2024 3:45 PM HYDRATE THICKENER OPERATOR Office Visit [facility] Oncology and Hematology - [address] [place] [id number] Kyree Hopper MD Other secondary thrombocytopenia (Primary Dx) 10/11/2024 Orders Only [facility] Oncology and Hematology - [address] [place] [phone] Kyree Hopper MD Other secondary thrombocytopenia (Primary Dx) 09/27/2024 External Device Data STL ABSTRACTION Provider, Abstract 09/21/2024 External Device Data STL ABSTRACTION Provider, Abstract 09/21/2024 External Device Data STL ABSTRACTION Provider, Abstract 09/14/2024 External Device Data STL ABSTRACTION Provider, Abstract 08/05/2024 Orders Only [facility] Oncology and Hematology - [address] [place] [id number] Kyree Hopper MD 08/04/2024 Orders Only [facility] Oncology and Hematology - [address] [place] [address] Kyree Hopper MD 08/03/2024 11:30 AM HYDRATE THICKENER OPERATOR Office Visit [facility] Oncology and Hematology [facility] [address] [place] [address] Kyree Hopper MD Other secondary thrombocytopenia (Primary Dx) from Last 3 Months Family History Medical History Relation Name Comments Throat Cancer Brother 2 Heart Disease Father Heart Disease Mother Heart Disease Sister 1 Heart Disease Sister 2 Relation Name Status Comments Brother 1 Alive Brother 2 Brother 3 Brother 4 Brother 5 Alive Brother 6 Alive Brother 7 Brother 8 Father Mother Sister 1 Sister 2 Sister 3 Son 1 Alive Son 2 Alive Social History Tobacco Use Types Packs/Day Years Used Date Smoking Tobacco: Former Cigarettes Smokeless Tobacco: Never Tobacco Cessation:Counseling Given: Not Answered Alcohol Use Standard Drinks/Week Comments Yes 2 (1 standard drink = 0.6 oz pur e alcohol) Sex and Gender Information Value Date Recorded Sex Assigned at Not on file Legal Sex Male 12:51 PM CDT Gender Identity Not on file Sexual Orientation Not on file Last Filed Vital Signs Vital Sign Reading Time Taken Comments Blood Pressure 154/82 10/17/2024 3:53 PM HYDRATE THICKENER OPERATOR Pulse 69 10/17/2024 3:50 PM HYDRATE THICKENER OPERATOR Temperature 36.6 C (97.9 F) 10/17/2024 3:50 PM HYDRATE THICKENER OPERATOR Respiratory Rate 15 10/17/2024 3:50 PM HYDRATE THICKENER OPERATOR Oxygen Saturation 93% 10/17/2024 3:50 PM HYDRATE THICKENER OPERATOR Inhaled Oxygen Concentration - - Weight 110.2 kg (243 lb) 10/17/2024 3:50 PM HYDRATE THICKENER OPERATOR Height 177.8 cm (5' 10 ) 12/11/2022 3:10 PM CDT Body Mass Index 34.87 12/11/2022 3:10 PM CDT Plan of Treatment Upcoming Encounters Date Type Department Care Team (Late st Contact Info) Description 04/19/2025 10:00 AM CDT Office Visit [facility] Oncology and Hematology [address] [place] [address] Kyree Hopper MD [address] [place] [phone] Health Maintenance Due Date Last Done Comments FIT-DNA Q 3 years 1995 FIT/FOBT Q 1 year 1995 Flex Sig/CT Colonography Q 5 years 1995 ZOSTER VACCINE (2 of 3) 06/02/2014 04/07/2014 Abdominal Aortic Aneurysm (A AA) Screening 2015 INFLUENZA VACCINE (#1) 2024 , 06/05/2020, 06/22/2019, Additional history exists COVID-19 Vaccine (2023- 5 season) 2024 12/16/2021, 07/24/2021, 11/09/2020, Additional history exists Medicare Advantage ([place]) Preventative Visit/Annual Wellness Visit 08/31/2024 RSV VACCINE (60+ or ) (1 - 1-dose 75+ series) 2025 COLORECTAL SCREENING 04/09/2028 04/09/2018, 02/09/20 12 Colorectal Cancer Screening 04/09/2028 DTAP/TDAP/TD VACCINES (2 - T d or Tdap) 11/14/2031 11/13/2021 PNEUMOCOCCAL VACCINE 65+ YEARS Completed 0 12/16/2021, 04/29/2019, 06/07/2014, Additional history exists Procedures Procedure Name Priority Date/Time Associated Diagnosis Comments BASIC METABOLIC PANEL Routine 08/03/2024 3:55 PM HYDRATE THICKENER OPERATOR BASIC METABOLIC PANEL Routine 08/03/2024 2:55 PM HYDRATE THICKENER OPERATOR CBC WITH DIFFERENTIAL Routine 08/03/2024 2:06 PM HYDRATE THICKENER OPERATOR COMPREHENSIVE METABOLIC PANEL Routine 08/03/2024 1:17 PM HYDRATE THICKENER OPERATOR from Last 3 Months Results * BASIC METABOLIC PANEL (08/03/2024 3:55 PM HYDRATE THICKENER OPERATOR) Only the most recent of2 resultswithin the time period is included. Blood us Kyree Hopper MD CHEMISTRY ORDERABLES Final Resu lt * CBC WITH DIFFERENTIAL (08/03/2024 2:06 PM HYDRATE THICKENER OPERATOR) Blood Kyree Hopper MD HEMATOLOGY ORDERABLES Final Res ult * COMPREHENSIVE METABOLIC PANEL (08/03/2024 1:17 PM HYDRATE THICKENER OPERATOR) Blood Kyree Hopper MD CHEMISTRY ORDERABLES Final Resu lt from Last 3 Months Insurance [facility] Address: [facility] [id number] [place] [id number] Care Teams Fine Dining Server Relationship Specialty Start Date End Date Kody Ahmadi MD PCP - General Family Practice 12/11/22
== END 2024-10-17 15:33 | disposition home or self-care (01) ==
LOC: ANHLAB 15:33
PROVIDERS: PCP Nurse Practitioner Adult Health; Visit Provider Internal Medicine Hematology & Oncology
DX: D69.59 Other secondary thrombocytopenia (principal)
CPT/HCPCS: 36415; 80047; 85025

== ENCOUNTER 2025-02-14 10:40 | Outpatient (CLI) | payer MEDICARE, SELFPAY ==
--- OUTSIDE RECORDS SUMMARY | 2025-02-14 11:47 | XMS_ITS | Referral Summary ---
Author Organization [facility] [facility] Address [address] [place] [address] [place] [address] Care Team Providers Care Long Wall Shear Operator Name Role Phone Arianne Cabrera NP Primary Care Provider [phone] Allergies No known active allergies Medications folic [...] 08/14/2021 Assessment & Plan (08/14/2021 8:52 AM ORTHOPEDICS NURSE): Reviewed need to lose weight, reviewed health benefits. Reviewed recommendations for daily intake & activity 20-30 minutes/day. Discussed healthy diet and importance of regular physical activity. Encounter for Medicare annual wellness exam 07/01 Assessment & Plan (08/11/2021 10:51 AM ORTHOPEDICS NURSE): 1. Eat a healthy diet: focus on lean meats and proteins, more fruits, vegetables and whole grains and low in sugars and fats. Limit red meat and avoid processed meat. 2. Maintain a healthy weight; avoid being overweight. Aim for a normal body mass index (BMI) of 18.5-24.9. Help learning to eat healthier, we can set up appointment with master sonar technician/forensic toxicologist. 3. Have an active lifestyle, strive for [...] 11/04/2019 Assessment & Plan (08/11/2021 10:57 AM ORTHOPEDICS NURSE): Atorvastatin 40mg daily. Denies myalgias. 02/21/20 XU=374 HDL=39 JT=811 CGJ=525 TC/HDL=6.0 02/22/21 DB=969 HDL=42 JU=108 LDL=86 TC/HDL=4 NTFVXY=476 04/30/21 MK=495 HDL=43 VR=428 LDL=88 TC/HDL=4 PTMMIF=314 We will check labs and make adjustments [...] flags. Assessment & Plan (11/04/2019 10:45 AM ORTHOPEDICS NURSE): 04/29/19 QI=417 HDL=38 RJ=428 UAP=926 TC/HDL=6.2 agm=133 11/04/19 FL=398 HDL=41 ZI=030 IRC=520 TC/HDL=5.8 UYD=147 Copy of results given to Mr Tyson as well as written explanation. Stressed need for lifestyle/dietary changes. Atorvastatin 40mg sent. Reviewed med SE & scheduling. To make f/u appt in 3 mos; to have labs drawn few days prior to appt. Esophageal reflux 08/02/2019 Assessment & Plan (08/11/2021 10:52 AM ORTHOPEDICS NURSE): Pantoprazole 40mg daily. Reviewed provocative foods to [...] bedtime. Assessment & Plan (11/04/2019 10:41 AM ORTHOPEDICS NURSE): Continues on pantoprazole for GERD. Last filled [...] bedtime. Assessment & Plan (08/21/2019 5:19 PM ORTHOPEDICS NURSE): Likely cause of current chest pain. Was previously well controlled with Prilosec, but this had to be stopped when he started methotrexate for psoriatic arthritis. Assessment & Plan (08/02/2019 11:57 AM ORTHOPEDICS NURSE): Instructed on GERD diet and to use [id number] calcium carbonate as needed. Restrict caffeine 5 hours before bed. Do not eat 3 hours before bedtime. Cervicalgia 04/29/2019 Assessment & Plan (04/29/2019 10:02 AM CDT): Referral to Dr Valenzuela at [facility] entered per his request. Aware that Dr Valenzuela's office will call to set up appt Long-term use of high-risk medication 04/07/2019 Assessment & Plan (04/07/2019 11:30 PM CDT): Patient on immunosuppressive medications requiring periodic lab monitoring for drug safety. History of colon polyps 03/12/2018 Overview (03/12/2018): Added automatically from request for surgery [id number] Psoriasis with arthropathy 01/14/2014 Overview (12/04/2016): Psoriatic arthritis Assessment & Plan (08/14/2021 9:38 AM ORTHOPEDICS NURSE): Had been managed by Dr Roland Stoll but too far to travel. MTX 15mg weekly. Has new pt appt w/Dr Valentino at [place] 01/2022. Has been seeing Dr Janette Palomo (derm) & she plans to start him on Humira. Assessment & Plan (02/20/2020 10:18 PM CDT): Followed by Dr Roland Stoll (rheum). Next office visit 03/30/20 Assessment & Plan (11/04/2019 10:40 AM ORTHOPEDICS NURSE): Continues to be followed by Dr Roland Stoll (rheum). KASANDRA 07/05/19. Assessment & Plan (04/07/2019 11:27 PM CDT): Images from the original note were not included. PsA clinically stable on methotrexate (4 tabs). Denies medication side effects. Continue present regimen Hypertension 01/14/2014 Overview (12/04/2016): BP (high blood pressure) Assessment & Plan (08/11/2021 10:55 AM ORTHOPEDICS NURSE): Lisinopril 40mg daily. The blood pressure is [...] received. Assessment & Plan (11/04/2019 10:40 AM ORTHOPEDICS NURSE): The blood pressure is under good control. Ideally it should be under 130/80. Continue medications without adjustment. Continue efforts to eat well (4-5 fruits and veggies) daily and exercise for about 30 min nearly every day. Watch salt intake, keeping to less than 2000mg per day. Labs ordered today; will contact w/results once received. Assessment & Plan (08/21/2019 5:16 PM ORTHOPEDICS NURSE): Continue home lisinopril. Assessment & Plan (12/16/2017 [...] study-he will consider after his vacation in [place] Assessment & Plan (11/24/2017 9:19 AM CDT): [...] 12/19/2011 Assessment & Plan (08/21/2019 5:17 PM ORTHOPEDICS NURSE): Monitored regularly as an outpatient. 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 Assessment [...] (08/22/2019): Added automatically from request for surgery [id number] Other chest pain 08/02/2019 07/10/2021 Assessment & Plan (08/21/2019 5:20 PM ORTHOPEDICS NURSE): Most likely caused by GERD and hiatal [...] morning. Assessment & Plan (08/02/2019 12:09 PM ORTHOPEDICS NURSE): Will place referral to Cardiology. EKG shows [...] healthier, we can set up appointment with master sonar technician/forensic toxicologist. 3. Have an active lifestyle, strive for [...] 07/10/2021 Assessment & Plan (11/04/2019 8:42 AM ORTHOPEDICS NURSE): Has lost 4# since 07/2019 appt here [...] other calcium sources. Consider making short and meterman goal to track your progress. Keep a diet/exercise record or on line resource to track calories in and out. Discuss your efforts with me at the next visit. Look up [employer] - this is a free calorie tracking ernestina. Discussed healthy diet and importance of regular physical activity. Assessment & Plan (08/21/2019 5:20 PM ORTHOPEDICS NURSE): Encourage weight loss. Assessment & Plan (04/29/2019 [...] 11/03/2019 Assessment & Plan (08/02/2019 11:57 AM ORTHOPEDICS NURSE): Advised on need for weight loss. Advised [...] on file Legal Sex Male 8:04 PM ORTHOPEDICS NURSE Gender Identity Not on file Sexual Orientation [...] 2:46 PM CDT Height 175.9 cm (5' 9.25) 11/13/2021 2:46 PM CD T Body Mass [...] of area) 01/22/2018 8:51 AM CDT Thrombocytopenia from Last 3 Months or Most Recently [...] 8:25 AM CDT 04/29/2021 8:30 AM CDT us Janette Palomo MD LAB MICROBIOLOGY - GENERA L ORDERABLES Final Result ORIN [facility] [id number] Department [place] [address] * PSA screen (02/22/2021 9:54 AM CDT) [...] Manuel Andrews MD LAB BLOOD ORDERABLES Trena yonny Result [facility] [address] [facility] Department of Laboratories [place] [id number] * COLONOSCOPY (04/09/2018 8:23 AM CDT) Anatomical Region Laterality Modality Other Narrative Procedure Note Star Palma MD - 04/09/2018 8:23 AM CDT [facility] Patient Name: Alexandru Tyson Procedure Date: 04/09/2018 8:23 AM Date of : 1950 Admit Type: Outpatient Age: 67 Gender: Male Attending MD: Star Palma M.D. Room: [facility] ENDOSCOPY ROOM 1 Note Status: Finalized Procedure: [...] scope was passed under direct vision.The Colonoscope [id number] was introducedthrough the anus and advanced to [...] history of colonic polyps CPT copyright 2017 [employer]. All rights reserved. The codes documented in this report are preliminary and upon weight and test bar clerk reviewmay be revised to meet current compliance requirements. Recognized by the [employer] for promoting quality [...] findings. Electronically signed by: Benjamín Fontenot M.D. Anel Dhillon MD IMG CT PROCEDURES Trena l Result from Last 3 Months or Most Recently Relevant to Health Maintenance Insurance [facility] [employer] MEDICARE HMO WELLCARE MEDICARE HMO Advance Directives For more information, please contact: [phone] * Full Code (Latest Code Status on File) Date Activated Date Inactivated Comments 08/22/2019 1:51 PM 08/22/2019 9:15 PM * Full Code Date Activated Date Inactivated Comments 08/21/2019 3:04 PM 08/22/2019 1:51 PM * Full Code Date Activated Date Inactivated Comments 04/09/2018 8:18 AM 04/09/2018 11:39 AM Healthcare Agents on File Name Relationship Healthcare Agent [facility] Magalie Tyson Spouse First Alternate Health Care Agent Care Teams Long Wall Shear Operator Relationship Specialty Start Date End Date Arianne Cabrera NP [address] [place] [id number] PCP - General Nurse Practitioner 04/14/24
--- OUTSIDE RECORDS SUMMARY | 2025-02-14 11:47 | XMS_ITS | Clinical Summary ---
Author Organization [facility] Address [address] [place] [address] Phone Care Team Providers Care Traffic Manager Name Role Phone Janette Smith [facility] Primary Care Pro vider Allergies No known active allergies Medications atorvastatin (LIPITOR) 40 MG Tablet Take 40 mg by mouth daily. Active FOLIC ACID PO Take by mouth. A ctive docusate sodium (COLACE) 50 MG/5ML Liquid Take 50 mg by mouth daily as needed. Active aspirin 81 MG Chewable Tablet Take 81 mg by mouth daily. Active amLODIPine (NORVASC) 2.5 MG Tablet Take 1 Tablet by mouth daily. 90 Tablet 1 5 Active methylPREDNISol one (MEDROL DOSPACK) 4 MG Tablet Therapy Pack Follow instructions on pack, take with food; Give one pack 1 Tablet 5 Active traMADol (ULTRAM) 50 MG TabletIndicatio ns:Pain of right hip,Bilateral hip pain Take 1 Tablet by mouth every 6 hours as needed for Mild or more severe pain. 30 Tablet 5 Active Active Problems Problem Noted Date Diagnosed Date Bilateral hip pain 10/28/2024 Overview (10/28/2024): History of steroid injections Past personal coach Other hyperlipidemia 10/28/2024 Psoriatic arthritis 10/28/2024 Former smoker, stopped smoking in distant past 0 10/28/2024 Colon polyps 06/01/2024 Hypertension Arthritis Psoriasis Overview (10/28/2024): DERM follows Dr Clif Palomo Distinctive Derm Pyloric stenosis, congenital Resolved Problems Problem Noted Date Diagnosed Date Resolved Date Colitis 09/30/2024 10/01/2024 Encounters Date Type Department Care Team Description 02/14/2025 8:10 AM CDT Lab [facility] Internal Medicine [facility] [address] [place] [address] Lab, David Primary hypertension; Well adult exam; Abnormal finding of blood chemistry, unspecified; Prostate cancer screening; Need for hepatitis C screening test Discharge Disposition: Discharged to home or Selfcare 02/14/2025 Telephone [facility] [address] [place] [address] Janette Smith, JOSE MARIA Referral 02/14/2025 Travel 01/11/2025 Telephone [facility] Internal [facility] [address] [place] [address] Janette Smith, JOSE MARIA 01/04/2025 Results Follow-Up [facility] [address] [place] [address] Janette Smith, JOSE MARIA AAA SCREENING 12/27/2024 9:54 AM CDT - 12/27/2024 11:59 PM CDT Hospital Encounter [facility] Ultrasound [address] [place] [address] Janette Smith, JOSE MARIA Discharge Disposition: Discharged to home or Selfcare 12/27/2024 Travel from Last 3 Months Family History Medical History Relation Name Comments Heart Attack Father Hypertension Mother Relation Name Status Comments Father Mother Social History Tobacco Use Types Packs/Day Years Used Date Smoking Tobacco: Former Cigarettes 1.5 25 1 970 - 1994 Smokeless Tobacco: Never Tobacco Cessation:Counseling Given: Not Answered Alcohol Use Standard Drinks/Week Comments Not Currently 2 (1 standard drink = 0.6 oz pur e alcohol) [facility] Utilities Answer Date Recorded In the past 12 months has e electric, gas, oil, or water company threatened to shut off services in your home? Patient declined 09/30/2024 Social Connection and Isolation Panel Answer Date Recorded In a typical week, how many times do you talk on the phone with family, friends, or neighbors? Patient declined 09/30/2024 How often do you get togethe r with friends or relatives? Patient declined 09/30/2024 How often do you attend quaker or mormon serv ices? Patient declined 09/30/2024 Do you belong to any clubs o r organizations such as quaker groups, unions, fraternal or athletic groups, or [...] medical care, and heating? Patient declined 09/30/2024 PHQ-2 Answer Date Recorded Total Score - Questions 1-9 1 10/02 [facility] [place] of Occupat ional Health - Occupational Stress [...] any time in the past 12 m [facility], were you homeless or living in a correction (including now)? Patient declined 09/30/2024 Sex and Gender Information Value Date Recorded Sex Assigned at Not on file Legal Sex Male 11:49 PM CDT Gender Identity Not on file Sexual Orientation Not on file Last Filed Vital Signs Vital Sign Reading Time Taken Comments Blood Pressure 134/84 10/28/2024 9:12 AM WASTE PICKER Pulse 84 10/28/2024 9:12 AM WASTE PICKER Temperature 36.6 C (97.9 F) 10/28/2024 9:12 AM WASTE PICKER Respiratory Rate 12 10/28/2024 9:12 AM WASTE PICKER Oxygen Saturation 95% 10/28/2024 9:12 AM WASTE PICKER Inhaled Oxygen Concentration - - Weight 110.2 kg (243 lb) 10/28/2024 9:12 AM WASTE PICKER Height 177.8 cm (5' 10) 10/28/2024 9:12 AM WASTE PICKER Body Mass Index 34.87 10/28/2024 9:12 AM WASTE PICKER Plan of Treatment Upcoming Encounters Date Type Department Care Team (Late st Contact Info) Description 05/03/2025 9:30 AM CDT Office Visit [facility] - Internal Medicine - [place] [address] [place] [address] Janette Smith, PAC [address] [place] [address] Health Maintenance Due Date Last Done Comments Hepatitis C Virus (HCV) Screening 1950 Cologuard 1995 Immunochemical Fecal Occult Blood 1995 Respiratory Syncytial Virus (RSV) Immunization (Adult) (1 - Risk 60-74 years 1-dose series) 2010 Zoster Immunization (2 of 3) 06/02/2014 04/07/2014 SARS-COV-2 Immunization ( season) 2024 05/19/2024, 06/02/2023, 06/08/2022, Additional history exists Colonoscopy 06/01/2029 06/01/2024 Colorectal Cancer Screening 06/01/2029 DTaP/Tdap/Td Immunization Discontinued 11/13/2021 TdaP Immunization Completed 11/13/2021 Pneumococcal Immunization (50+ years) Completed 12/16/2021, 04/29/2019, 06/07/2014, Additional history exists Influenza Immunization Completed , 05/11/2023, 06/02/2022, Additional history exists AAA Screening Ultrasound Completed 12/27/2024 Hepatitis B Immunization Aged Out No longer eligible based on patient's age to complete this topic Human Papillomavirus (HPV) Immunization Aged Out No longer eligible based on patient's age to complete this topic Meningococcal Immunization (ACWY) Aged Out No longer eligible based on patient's age to complete this topic Rotavirus Immunization Aged Out No lo nger eligible based on patient's age to complete this topic Procedures Procedure Name Priority Date/Time Associated Diagnosis Comments US AAA SCREENING Routine 12/27/2024 10:2 3 AM CDT Screening for AAA (abdominal aortic aneurysm) from Last 3 Months Results * US AAA SCREENING (12/27/2024 10:23 AM CDT) Anatomical Region Laterality Modality Abdomen N/A Ultrasound 01/04/2025 8:37 AM CDT Impressions 01/04/2025 8:40 AM CDT IMPRESSION: Proximal abdominal aortic aneurysm measuring 3.3 cm. Maximum aortic diameter reported at 2.[address] from 09/29/2024. Difference in size might be due to interval growth or difference in imaging modality. REFERENCE: Please see below follow up recommendations for abdominal aortic aneurysm surveillance per Society for Vascular Surgery Guidelines: < 2.6 cm No follow up or future screenings necessary 2.62.9 cm Recommended ultrasound follow up every 5 years 3.0-3.4 cm Recommended ultrasound follow up every 3 years 3.5-3.9 cm Recommended ultrasound follow up every 12 months 4.0-4.9 cm Recommended ultrasound follow up every 12 months, vascular surgery consult 5.0-5.4 cm Recommended ultrasound follow up every 6 months, vascular surgery consult >= 5.5 cm Referral to vascular surgeon Based upon Society for Vascular Surgery Guidelines: J Vasc Surgery 2008 50: s2-s49; updated Aug 2017 J Vasc Surgery 67:2-77 Narrative 01/04/2025 8:40 AM CDT EXAM DESCRIPTION: US AAA SCREENING REASON FOR STUDY: screening, hypertension TECHNIQUE: Grayscale images acquired of the aorta and stored on PACS. Selected color Doppler and spectral images recorded. COMPARISON: CT abdomen and pelvis 09/29/2024 FINDINGS: AORTIC CALIBER MAXIMAL PROXIMAL: 3.2 x 3.3 cm. MID: 2.4 x 2.5 cm. DISTAL: 2.3 x 2.1 cm. ILIAC DIAMETER RIGHT: 1.4 x 1.5 cm. LEFT: 1.3 x 1.3 cm. OTHER: No other significant finding. THIS IS AN ELECTRONICALLY VERIFIED FINAL REPORT 01/04/2025 8:37 AM - Electronically signed by Marek Segovia M.D. JR: Report ID: [id number] Reading Location: [id number] Procedure Note Marek Segovia MD - 01/04/2025 EXAM DESCRIPTION: US AAA SCREENING REASON FOR STUDY: screening, hypertension TECHNIQUE: Grayscale images acquired of the aorta and stored on PACS. Selected color Doppler and spectral images recorded. COMPARISON: CT abdomen and pelvis 09/29/2024 FINDINGS: AORTIC CALIBER MAXIMAL PROXIMAL: 3.2 x 3.3 cm. MID: 2.4 x 2.5 cm. DISTAL: 2.3 x 2.1 cm. ILIAC DIAMETER RIGHT: 1.4 x 1.5 cm. LEFT: 1.3 x 1.3 cm. OTHER: No other significant finding. THIS IS AN ELECTRONICALLY VERIFIED FINAL REPORT 01/04/2025 8:37 AM - Electronically signed by Marek Segovia M.D. JR: Report ID: [id number] Reading Location: [place] [address] IMPRESSION: Proximal abdominal aortic aneurysm measuring 3.3 cm. Maximum aortic diameter reported at 2.[address] from 09/29/2024. Difference in size might be due to interval growth or difference in imaging modality. REFERENCE: Please see below follow up recommendations for abdominal aortic aneurysm surveillance per Society for Vascular Surgery Guidelines: < 2.6 cm No follow up or future screenings necessary 2.62.9 cm Recommended ultrasound follow up every 5 years 3.0-3.4 cm Recommended ultrasound follow up every 3 years 3.5-3.9 cm Recommended ultrasound follow up every 12 months 4.0-4.9 cm Recommended ultrasound follow up every 12 months, vascular surgery consult 5.0-5.4 cm Recommended ultrasound follow up every 6 months, vascular surgery consult >= 5.5 cm Referral to vascular surgeon Based upon Society for Vascular Surgery Guidelines: J Vasc Surgery 2008 50: s2-s49; updated Aug 2017 J Vasc Surgery 67:2-77 Janette Smith [facility] US ORDERABLES Final Result from Last 3 Months Insurance MEDICARE [employer] Advance Directives * Full Code (Latest Code Status on File) Date Activated Date Inactivated Comments 09/30/2024 1:57 AM CPR-Full Treat ment: FULL ARREST: Attempt Resuscitation/CPR wit intubation and mechanical ventilation. PRE-ARREST: Use entire range of life support measures to stabilize the patient. Care Teams Traffic Manager Relationship Specialty Start Date End Date Janette Smith, PAC [address] [place] [address] PCP - General Physician Coding File Clerk 10/28/24
--- OUTSIDE RECORDS SUMMARY | 2025-02-14 11:47 | XMS_ITS | Encounter Summary ---
Author Organization [facility] Care Team Providers Care Birth Certificate Clerk Name Role Phone Janette Smith PAC Primary Care Pro vider Encounter Details Date Type Department Care Team (Latest Contact Info) Description 02/14/2025 Travel Social History Tobacco Use Types Packs/Day Years Used Date Smoking Tobacco: Former Cigarettes 1.5 25 1 970 - 1995 Smokeless Tobacco: Never Alcohol Use Standard Drinks/Week Comments Not Currently 2 (1 standard drink = 0.6 oz pur e alcohol) [facility] Utilities Answer Date Recorded In the past [...] declined 09/30/2024 How often do you attend orthodoxy or roman catholic serv ices? Patient declined 09/30/2024 Do you belong to any clubs o r organizations such as orthodoxy groups, unions, fraternal or athletic groups, or [...] Total Score - Questions 1-9 1 10/02 [facility] of Occupat ional Health - Occupational Stress [...] any time in the past 12 m [facility], were you homeless or living in a skilled nursing (including now)? Patient declined 09/30/2024 Sex and Gender Information Value Date Recorded Sex Assigned at Not on file Legal Sex Male 11:49 PM CDT Gender Identity Not on file Sexual Orientation Not on file documented as of this encounter Plan of Treatment Upcoming Encounters Date Type Department Care Team (Late st Contact Info) Description 05/03/2025 9:30 AM CDT Office Visit [facility] - Internal Medicine - [place] [address] [place] [address] Janette Smith, PAC [address] [place] [address] documented as of this encounter Visit Diagnoses Not on filedocumented in this encounter Additional Health Concerns Assessment Noted Time PHQ-9 Depression Total Score: 1 10/28/19 25 9:09 AM PHOTONICS ENGINEER documented as of this encounter Care Teams Birth Certificate Clerk Relationship Specialty Start Date End Date Janette Smith, PAC [address] [place] [address] PCP - General Physician Analysis Lead 10/28/24 documented as of this encounter
--- OUTSIDE RECORDS SUMMARY | 2025-02-14 11:47 | XMS_ITS | Clinical Summary ---
Author Organization [facility] [facility] Address [address] [place] [address] [place] [address] Care Team Providers Care Social Work Professor Name Role Phone Arianne Cabrera NP Primary Care Provider [phone] Allergies No known active allergies Medications folic [...] 08/14/2021 Assessment & Plan (08/14/2021 8:52 AM MANAGER ENGAGEMENT): Reviewed need to lose weight, reviewed health benefits. Reviewed recommendations for daily intake & activity 20-30 minutes/day. Discussed healthy diet and importance of regular physical activity. Encounter for Medicare annual wellness exam 07/01 Assessment & Plan (08/11/2021 10:51 AM MANAGER ENGAGEMENT): 1. Eat a healthy diet: focus on lean meats and proteins, more fruits, vegetables and whole grains and low in sugars and fats. Limit red meat and avoid processed meat. 2. Maintain a healthy weight; avoid being overweight. Aim for a normal body mass index (BMI) of 18.5-24.9. Help learning to eat healthier, we can set up appointment with chipper machine operator/upkeep mechanic. 3. Have an active lifestyle, strive for [...] 11/04/2019 Assessment & Plan (08/11/2021 10:57 AM MANAGER ENGAGEMENT): Atorvastatin 40mg daily. Denies myalgias. 02/21/20 FT=050 HDL=39 LO=436 UAO=708 TC/HDL=6.0 02/22/21 VC=282 HDL=42 RT=497 LDL=86 TC/HDL=4 OGBUNS=661 04/30/21 BA=216 HDL=43 DD=134 LDL=88 TC/HDL=4 NYGUNL=833 We will check labs and make adjustments [...] flags. Assessment & Plan (11/04/2019 10:45 AM MANAGER ENGAGEMENT): 04/29/19 KV=592 HDL=38 CO=785 RCJ=198 TC/HDL=6.2 ncm=024 11/04/19 HG=555 HDL=41 SN=813 EVX=027 TC/HDL=5.8 HTE=658 Copy of results given to Mr Tyson as well as written explanation. Stressed need for lifestyle/dietary changes. Atorvastatin 40mg sent. Reviewed med SE & scheduling. To make f/u appt in 3 mos; to have labs drawn few days prior to appt. Esophageal reflux 08/02/2019 Assessment & Plan (08/11/2021 10:52 AM MANAGER ENGAGEMENT): Pantoprazole 40mg daily. Reviewed provocative foods to [...] bedtime. Assessment & Plan (11/04/2019 10:41 AM MANAGER ENGAGEMENT): Continues on pantoprazole for GERD. Last filled [...] bedtime. Assessment & Plan (08/21/2019 5:19 PM MANAGER ENGAGEMENT): Likely cause of current chest pain. Was previously well controlled with Prilosec, but this had to be stopped when he started methotrexate for psoriatic arthritis. Assessment & Plan (08/02/2019 11:57 AM MANAGER ENGAGEMENT): Instructed on GERD diet and to use ywgj-xan-tqcckun calcium carbonate as needed. Restrict caffeine 5 hours before bed. Do not eat 3 hours before bedtime. Cervicalgia 04/29/2019 Assessment & Plan (04/29/2019 10:02 AM CDT): Referral to Dr Valenzuela at [facility] entered per his request. Aware that Dr Valenzuela's office will call to set up appt Long-term use of high-risk medication 04/07/2019 Assessment & Plan (04/07/2019 11:30 PM CDT): Patient on immunosuppressive medications requiring periodic lab monitoring for drug safety. History of colon polyps 03/12/2018 Overview (03/12/2018): Added automatically from request for surgery [id number] Psoriasis with arthropathy 01/14/2014 Overview (12/04/2016): Psoriatic arthritis Assessment & Plan (08/14/2021 9:38 AM MANAGER ENGAGEMENT): Had been managed by Dr Roland Stoll but too far to travel. MTX 15mg weekly. Has new pt appt w/Dr Valentino at [facility] 01/2022. Has been seeing Dr Janette Palomo (derm) & she plans to start him on Humira. Assessment & Plan (02/20/2020 10:18 PM CDT): Followed by Dr Roland Stoll (rheum). Next office visit 03/30/20 Assessment & Plan (11/04/2019 10:40 AM MANAGER ENGAGEMENT): Continues to be followed by Dr Roland Stoll (rheum). KASANDRA 07/05/19. Assessment & Plan (04/07/2019 11:27 PM CDT): Images from the original note were not included. PsA clinically stable on methotrexate (4 tabs). Denies medication side effects. Continue present regimen Hypertension 01/14/2014 Overview (12/04/2016): BP (high blood pressure) Assessment & Plan (08/11/2021 10:55 AM MANAGER ENGAGEMENT): Lisinopril 40mg daily. The blood pressure is [...] received. Assessment & Plan (11/04/2019 10:40 AM MANAGER ENGAGEMENT): The blood pressure is under good control. Ideally it should be under 130/80. Continue medications without adjustment. Continue efforts to eat well (4-5 fruits and veggies) daily and exercise for about 30 min nearly every day. Watch salt intake, keeping to less than 2000mg per day. Labs ordered today; will contact w/results once received. Assessment & Plan (08/21/2019 5:16 PM MANAGER ENGAGEMENT): Continue home lisinopril. Assessment & Plan (12/16/2017 [...] study-he will consider after his vacation in [place] Assessment & Plan (11/24/2017 9:19 AM CDT): [...] 12/19/2011 Assessment & Plan (08/21/2019 5:17 PM MANAGER ENGAGEMENT): Monitored regularly as an outpatient. 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 Assessment [...] (08/22/2019): Added automatically from request for surgery [id number] Other chest pain 08/02/2019 07/10/2021 Assessment & Plan (08/21/2019 5:20 PM MANAGER ENGAGEMENT): Most likely caused by GERD and hiatal [...] morning. Assessment & Plan (08/02/2019 12:09 PM MANAGER ENGAGEMENT): Will place referral to Cardiology. EKG shows [...] healthier, we can set up appointment with chipper machine operator/upkeep mechanic. 3. Have an active lifestyle, strive for [...] 07/10/2021 Assessment & Plan (11/04/2019 8:42 AM MANAGER ENGAGEMENT): Has lost 4# since 07/2019 appt here [...] other calcium sources. Consider making short and terminal makeup operator goal to track your progress. Keep a diet/exercise record or on line resource to track calories in and out. Discuss your efforts with me at the next visit. Look up [employer] - this is a free calorie tracking ernestina. Discussed healthy diet and importance of regular physical activity. Assessment & Plan (08/21/2019 5:20 PM MANAGER ENGAGEMENT): Encourage weight loss. Assessment & Plan (04/29/2019 [...] 11/03/2019 Assessment & Plan (08/02/2019 11:57 AM MANAGER ENGAGEMENT): Advised on need for weight loss. Advised [...] on file Legal Sex Male 8:04 PM MANAGER ENGAGEMENT Gender Identity Not on file Sexual Orientation [...] 07/24/2021, 11/09/2020, Additional history exists Influenza Vaccine (Season Ended) 2025 05/21/2021, 06/05/2020, 06/24/2019, Additional history exists DTaP/Tdap/Td Vaccine [...] L ORDERABLES Final Result Performing Organization Address [facility] Co de Phone Number [facility] [address] [address] [place] [address] * PSA screen (02/22/2021 9:54 AM CDT) PSA-Total 0.72 <=6.20 ng/mL ORIN Comment: Interpretive Data AGE SEX REFERENCE INTERVAL 0 minutes-150 years Female None 0 minutes-49 years Male None 50-59 years Male 0-3.90 60-69 years Male 0-5.40 70-79 years Male 0-6.20 80-150 years Male 0-6.20 Current interpretive data last revised 2018. Blood specimen (specimen) 02/22/2021 9:54 AM CDT 02/22/2021 1:37 PM CDT Manuel Andrews MD LAB BLOOD ORDERABLES Trena l Result Performing Organization Address [facility] Co de Phone Number ORIN LOBO [address] [address] Department [place] [address] * COLONOSCOPY (04/09/2018 8:23 AM CDT) Anatomical Region Laterality Modality Other Narrative Procedure Note Star Palma MD - 04/09/2018 8:23 AM CDT [facility] Patient Name: Alexandru Tyson Procedure Date: 04/09/2018 8:23 AM Date of : 1950 Admit Type: Outpatient Age: 67 Gender: Male Attending MD: Star Palma M.D. Room: [facility] ENDOSCOPY ROOM 1 Note Status: Finalized Procedure: [...] scope was passed under direct vision.The Colonoscope [id number] was introducedthrough the anus and advanced to [...] history of colonic polyps CPT copyright 2017 [employer]. All rights reserved. The codes documented in this report are preliminary and upon machine adjuster helper reviewmay be revised to meet current compliance requirements. Recognized by the [employer] for promoting quality [...] findings. Electronically signed by: Benjamín Fontenot M.D. Adrianaaz Shirley Dhillon MD IMG CT PROCEDURES Trena l Result from Last 3 Months or Most Recently Relevant to Health Maintenance Insurance [facility] MEDIC[facility] HMO [facility] MEDIC[facility] HMO Advance Directives For more information, please contact: [phone] * Full Code (Latest Code Status on [...] First Alternate Health Care Agent Care Teams Social Work Professor Relationship Specialty Start Date End Date Arianne Cabrera NP [address] [place] [address] PCP - General Nurse Practitioner 04/14/24
--- OUTSIDE RECORDS SUMMARY | 2025-02-14 11:47 | XMS_ITS | Encounter Summary ---
Author Organization [facility] Address [address] [place] [address] Phone Care Team Providers Care Precast Molder Name Role Phone Manuel Andrews MD Primary Care Provider [phone] Sunita Montano LPN Unavailable [phone] Arianne Cabrera NP Primary Care Provider [phone] Encounter Details Date Type Department Care Team (Late st Contact Info) Description 01/14/2018 Orders Only [facility] ProviderNighat MD [facility] [place] [address] Social History Tobacco Use Types Packs/Day Years Used Date Smoking Tobacco: Former Smokeless Tobacco: Never Alcohol Use Standard Drinks/Week Comments Yes 0 (1 standard drink = 0.6 oz pur e alcohol) Sex and Gender Information Value Date Recorded Sex Assigned at Not on file Legal Sex Male 8:04 PM MEDICAL BILLING MANAGER Gender Identity Not on file Sexual Orientation [...] on filedocumented in this encounter Care Teams Precast Molder Relationship Specialty Start Date End Date Manuel Andrews MD [address] [place] [address] PCP - General 01/12/12 04/13/24 Arianne Cabrera NP [address] [place] [address] PCP - General Nurse Practitioner 04/14/24 Sunita Montano, POLICE INVESTIGATOR [address] [place] [address] [address] [place] [address] ACO Care Broth Setter 07/11/21 07/15/21 documented as of this encounter
--- OUTSIDE RECORDS SUMMARY | 2025-02-14 11:47 | XMS_ITS | Encounter Summary ---
Author Organization [facility] Address [address] [place] [address] Phone Care Team Providers Care Steam Turbine Assembler Name Role Phone Janette Smith PAC Primary Care Pro vider Encounter Details Date Type Department Care Team (Late st Contact Info) Description 02/14/2025 8:10 AM CDT Lab [facility] - Internal Medicine - [place] [address] [place] [id number] Lab [facility] Primary hypertension; Well adult exam; Abnormal finding of blood chemistry, unspecified; Prostate cancer screening; Need for hepatitis C screening test Discharge Disposition: Discharged to home or Selfcare Social History Tobacco Use Types Packs/Day Years Used Date Smoking Tobacco: Former Cigarettes 1.5 25 1 970 - 1994 Smokeless Tobacco: Never Alcohol Use Standard Drinks/Week Comments Not Currently 2 (1 standard drink = 0.6 oz pur e alcohol) [facility] Utilities Answer Date Recorded In the past 12 months has [employer] electric, gas, oil, or water company threatened [...] declined 09/30/2024 How often do you attend episcopal or jehovah's witness serv ices? Patient declined 09/30/2024 Do you belong to any clubs o r organizations such as episcopal groups, unions, fraternal or athletic groups, or [...] Total Score - Questions 1-9 1 10/02 [facility] Occupat ional [facility] - Occupational Stress Questionnaire Answer Date Recorded [...] any time in the past 12 m [facility], were you homeless or living in a custodial (including now)? Patient declined 09/30/2024 Sex and Gender Information Value Date Recorded Sex Assigned at Not on file Legal Sex Male 11:49 PM CDT Gender Identity Not on file Sexual Orientation Not on file documented as of this encounter Progress Notes * Radha Porter, RN - 02/14/2025 8:10 AM CDT Alexandru is here for labs per order of Janette Smith. . Verbal consent was obtained. Alexandru tolerated the labs well without incident. Drawn from left AC documented in this encounter Plan of Treatment Upcoming Encounters Date Type Department Care Team (Late st Contact Info) Description 05/03/2025 9:30 AM CDT Office Visit [facility] - Internal Medicine [facility] [address] [place] [address] Janette Smith, [facility] [address] [place] [address] Pending Results Name Type Priority Associated Diagnoses Date /Time CMP (COMPREHENSIVE METABOLIC PANEL) Lab Routine Primary hypertension Well adult exam 02/14/2025 8:14 AM CDT COMPLETE BLOOD COUNT (CBC) WITH DIFF Lab Routine Primary hypertension Well adult exam 02/14/2025 8:14 AM CDT HEMOGLOBIN A1C W/ ESTIMATED GLUCOSE Lab Routine Primary hypertension Well adult exam Abnormal finding of blood chemistry, unspecified 02/14/2025 8:14 AM CDT LIPID PANEL Lab Routine Primary hypertension Well adult exam 02/14/2025 8:14 AM CDT THYROID STIMULATING HORMONE (TSH) Lab Routine Primary hypertension Well adult exam 02/14/2025 8:14 AM CDT PSA SCREEN Lab Routine Prostate cancer screening 02/14/2025 8:14 AM CDT HEPATITIS C ANTIBODY Lab Routine Need for hepatitis C screening test 02/14/2025 8:14 AM CDT CBC WITH AUTO DIFFERENTIAL Lab Only Routine Primary hypertension Well adult exam 02/14/2025 8:14 AM CDT documented as of this encounter Visit Diagnoses Diagnosis Primary hypertension Unspecified essential hypertension Well adult exam Routine general medical examination at a health care facility Abnormal finding of blood chemistry, unspecified Prostate cancer screening Special screening for malignant neoplasm of prostate Need for hepatitis C screening test Special screening examination for other specified viral diseases documented in this encounter Additional Health Concerns Assessment Noted Time PHQ-9 Depression Total Score: 1 10/28/19 9:09 AM WATCHER LOOKOUT TOWER documented as of this encounter Care Teams Steam Turbine Assembler Relationship Specialty Start Date End Date Janette Smith PAC [address] [place] [address] PCP - General Physician Commercial Driver'S License Driver 10/28/24 documented as of this encounter
--- OUTSIDE RECORDS SUMMARY | 2025-02-14 11:47 | XMS_ITS | Encounter Summary ---
Author Organization [facility] Address [address] [facility] [place] [address] Phone Care Team Providers Care Logistics Coordinator Name Role Phone Janette Smith PAC Primary Care Pro vider Reason for Visit * Reason Onset Date Comments Referral 02/14/2025 Encounter Details Date Type Department Care Team (Late st Contact Info) Description 02/14/[address] [facility] [address] [place] [address] Janette Smith, PAC [address] [place] [address] Referral Social History Tobacco Use Types Packs/Day Years Used Date Smoking Tobacco: Former Cigarettes 1.5 25 1 970 - 1994 Smokeless Tobacco: Never Alcohol Use Standard Drinks/Week Comments Not Currently 2 (1 standard drink = 0.6 oz pur e alcohol) [facility] Utilities Answer Date Recorded In the past 12 months has [employer], gas, oil, or water company threatened to [...] declined 09/30/2024 How often do you attend mormonism or spiritism serv ices? Patient declined 09/30/2024 Do you belong to any clubs o r organizations such as mormonism groups, unions, fraternal or athletic groups, or [...] 1-9 1 10/02 [facility] - Occupational Stress Questionnaire Answer Date [...] any time in the past 12 m [facility], were you homeless or living in a longterm (including now)? Patient declined 09/30/2024 Sex and Gender Information Value Date Recorded Sex Assigned at Not on file Legal Sex Male 11:49 PM CDT Gender Identity Not on file Sexual Orientation Not on file documented as of this encounter Miscellaneous Notes * Telephone Encounter - Bonnie Michelle - 02/14/2025 9:39 AM CDT SITUATION: Patient requesting provider review Vascular Surgery Referral. BACKGROUND: Referral unable to be processed. ASSESSMENT: Request for provider review due to the following reason(s): More information RECOMMENDATION: Based on the above information the provider has the following option(s): I called patient about hisvascular surgery referral this morning and he was confused about the AAA diagnosis. Patient has questions about diagnosis I was unable to answer. Patient would also like his referral printed out and his diagnosis placed on printed paper so he is able to explain to an external office what he is needing. Patient was offered [facility] but is not wanting to travel if possible. [facility] is not in his insurance network. Patient would like a phone call about diagnosis and to speak about getting referral getting printed. Thank you! Bonnie Michelle [facility] - Referrals opt 7 documented in this encounter Plan of Treatment Upcoming Encounters Date Type Department Care Team (Late st Contact Info) Description 05/03/2025 9:30 AM CDT [facility] - Internal Medicine - [place] [place] [address] Janetet Smith, PAC [address] [place] [address] documented as of this encounter Visit Diagnoses Not on filedocumented in this encounter Additional Health Concerns Assessment Noted Time PHQ-9 Depression Total Score: 1 10/28/19 25 9:09 AM CHEMIST ENZYMES documented as of this encounter Care Teams Logistics Coordinator Relationship Specialty Start Date End Date Janette Smith, PAC [address] [place] [address] PCP - General Physician Dry Cleaner Presser 10/28/24 documented as of this encounter
--- OUTSIDE RECORDS SUMMARY | 2025-02-14 11:47 | XMS_ITS | Continuity of Care Document ---
Author Organization [facility] Address [address] [place] [address] [place] [address] Phone Care Team Providers Care Back Line Cook Name Role Phone Kurt Sousa MD Unavailable [...] Diagnoses Date Provider Providers Copied on Encounter [facility], [address] [place] [address] [address], [place], [place], [id number], [place] tel:[phone] [address] GARCIA Professional No Information 3 Merry Hicks. [address] [facility] [address], [place], [place], [id number], [place]. tel:[phone] [facility], [address] [place] [address] [address], [place], [place], [id number], [place] tel:[phone] [address] RADHA Professional No Information 3 Merry Hicks. [address], [facility], [place], [place], [id number], [place]. tel:[phone] Referring Provider: Kurt Dhaliwal [address] [facility] [address], [place], [address] . tel:[phone] Family History Family Member Type Diagnosis Age At Onset No Information Payers Payer name Insurance type Covered republican ID Jackeline gleason(s) [facility] CI [id number] Social History Type Description Quantity Date Captured [...]
--- OUTSIDE RECORDS SUMMARY | 2025-02-14 11:47 | XMS_ITS | Clinical Summary ---
Author Organization [facility] Address [address] [place] [address] Care Team Providers Care Sampler Pickup Name Role Phone Kody Ahmadi MD Primary Care Provider [phone] Allergies No known active allergies Medications atorvastatin [...] Encounters Date Type Department Care Team Description 01/24/2025 External Device Data [place] Provider, Abstract 01/19/2025 External Device Data [place] Provider, Abstract 01/18/2025 External Device Data [place] Provider, Abstract 01/17/2025 External Device Data [place] Provider, Abstract 12/13/2024 External Device Data [place] Provider, Abstract 12/06/2024 External Device Data [place] Provider, Abstract 11/16/2024 External Device Data [place] Provider, Abstract from Last 3 Months Family History Medical [...] Comments Blood Pressure 154/82 10/17/2024 3:53 PM PERL DEVELOPER Pulse 69 10/17/2024 3:50 PM PERL DEVELOPER Temperature 36.6 C (97.9 F) 10/17/2024 3:50 PM PERL DEVELOPER Respiratory Rate 15 10/17/2024 3:50 PM PERL DEVELOPER Oxygen Saturation 93% 10/17/2024 3:50 PM PERL DEVELOPER Inhaled Oxygen Concentration - - Weight 110.2 kg (243 lb) 10/17/2024 3:50 PM PERL DEVELOPER Height 177.8 cm (5' 10) 12/11/2022 3:10 PM CDT Body Mass Index 34.87 12/11/2022 3:10 PM CDT Plan of Treatment Upcoming Encounters Date Type Department Care Team (Late st Contact Info) Description 04/19/2025 10:00 AM CDT Office Visit [facility] Oncology and Hematology - [place] [address] [place] [address] [facility] [address] [place] [address] Kyree Hopper MD [address] [facility] [address] [place] [address] Health Maintenance Due Date Last Done Comments FIT-DNA Q 3 years 1995 FIT/FOBT Q 1 year 1995 Flex Sig/CT Colonography Q 5 years 1995 ZOSTER VACCINE (2 of 3) 06/02/2014 04/07/2014 Abdominal Aortic Aneurysm (A AA) Screening 2015 INFLUENZA VACCINE (#1) 2024 , 06/05/2020, 06/22/2019, Additional history exists COVID-19 Vaccine ( - 2023-2 5 season) 2024 12/16/2021, 07/24/2021, 11/09/2020, Additional history exists RSV VACCINE (60+ or ) (1 - 1-dose 75+ series) 2025 COLORECTAL SCREENING 04/09/2028 04/09/2018, 02/09/20 12 Colorectal Cancer Screening 04/09/2028 DTAP/TDAP/TD VACCINES (2 - T d or Tdap) 11/14/2031 11/13/2021 PNEUMOCOCCAL VACCINE 50+ YEARS Completed 0 12/16/2021, 04/29/2019, 06/07/2014, Additional history exists Insurance Care Teams Sampler Pickup Relationship Specialty Start Date End Date Kody Ahmadi MD PCP - General Family Practice 12/11/22
--- OUTSIDE RECORDS SUMMARY | 2025-02-14 11:48 | XMS_ITS | Clinical Summary ---
Author Organization [facility] Address [address] [place] [address] Care Team Providers Care Riverboat Captain Name Role Phone Manuel Andrews MD Primary Care Provider [phone] Shiv Magallanes DPM Unavailable [phone] Source Comments [facility],non-owned Affiliates and Associated Physician Practices is amultiple site organization consisting of ambulatory clinics and hospital sitesin [place], [place], [place] and [place]. This disclosure is being madepursuant to the Care Everywhere program and may not contain all information available regarding this patient. Last updated 18.[facility] Allergies No known active allergies Medications * Be aware that medications may not be up to date on this document. Alwaysverify current medications with the patient. lisinopril (PRINIVIL; ZESTRIL) 20 MG tablet Take 20 mg by mouth 2 times daily. Active Acetaminophen (EXTRA STRENGTH PAIN RELIEF PO) Take by mouth. Acti ve folic acid 400 MCG tablet Take 800 mcg by mouth once daily. Active methotrexate 2.5 MG tablet Take 8 Tabs by mouth every 7 days. 32 Tab 5 4 Active etanercept (ENBREL SURECLICK) 50 MG/ML injection Inject 50 mg subcutaneously every 7 days 4 mL 3 5 Active Active Problems Problem Noted Date [...] blocking medication along with methotrexate soon Immunizations Immunization Administration Dates Next Due PNEUMOCOCCAL PPSV23 06/07/2014 [...] at Not on file Legal Sex Male 2:06 PM CDT Gender Identity Not on file [...] 12:38 PM CDT Height 177.8 cm (5' 10) 06/20/2015 12:38 PM CDT Body Mass Index [...] or PCV21) 06/07/2019 06/07/2014, 06/07/2014 COVID-19 VACCINE ( - 2023-2 5 season) 2024 DEPRESSION SCREENING 08/31/2024 MEDICARE AWV CALENDAR YEAR 2024 INFLUENZA VACCINE (Season Ended) 2025 HEPATITIS B VACCINE Aged Out No longe r eligible based on patient's age to complete this topic HIB VACCINE Aged Out No longer eligi ble based on patient's age to complete this topic HPV VACCINE Aged Out No longer eligi ble based on patient's age to complete this topic MENINGOCOCCAL (Group B) VACCINE SHARED DECISION-MAKING Aged Out No longer eligible based on patient's age to complete this topic MENINGOCOCCAL GROUPS A/C/Y/W VACCINE Aged Out No longer eligible b ased on patient's age to complete this topic Insurance [facility] [address] [place], [place] [address] MEDICARE Care Teams Riverboat Captain Relationship Specialty Start Date End Date Manuel Andrews MD [address] [place] [address] PCP - General Internal Medicine 06/07/14 Shiv [place]anes [place] [address] Podiatry 06/07/14
--- OUTSIDE RECORDS SUMMARY | 2025-02-14 11:48 | XMS_ITS | Continuity of Care Document ---
Author Organization [facility]. If a dditional information is needed, contact Health Information Management at [phone] Address [address] [place] [address] Phone Care Team Providers Care Revenue Director Name Role Phone Unavailable Unavailable Unavailable Unavailable Unavailable Unavailable Unavailable Unavailable Unavailable Problems Indigestion Onset:12-Nov-2022 Calin Menezes MD Allergies and Adverse Reactions No Known Drug Allergies(Melo rgy) Onset: 12-Nov-2022 Medications labetalol hydrochloride 5 MG /ML Injectable Solution;80 MILLIGRAM X3ED Quantity:1 Calin Menezes MD Start:12-Nov-2022 Status:Discontinued Comments:[id number] labetalol hydrochloride 5 MG /ML Injectable Solution;10 MILLIGRAM X3ED Quantity:1 Calin Menezes MD Start:12-Nov-2022 Status:Discontinued Comments:[id number] aspirin 81 MG Chewable Table t [Liz Aspirin];81 MILLIGRAM PO DAILY Start:12-Nov-2022 Comments:81 MG PO DAILY lisinopril 40 MG Oral Tablet ;40 MILLIGRAM PO DAILY Start:12-Nov-2022 Comments:40 MG PO DAILY 0.8 ML adalimumab 50 MG/ML P refilled Syringe [Humira];40 MILLIGRAM SUBCUTANEOUS Q14D Start:12-Nov-2022 Comments:40 MG SUBQ Q14D Social History Smoking Status Never smoked tobacco Recorded: 12-Nov-2022
[2025-02-14 20:11] LABS: Basophils Absolute Auto 0.1 K/mm3 (0.0-0.1); Basophils Percent Auto 1.1 % (0.2-1.2); Eosinophils Absolute Auto 0.2 K/mm3 (0-0.3); Eosinophils Percent Auto 3.3 % (0-4.4); Hematocrit 50.1 % (42.0-52.0); Hemoglobin 15.2 g/dL (14.0-18.0); Immature Platelet Fraction Pct 12.5 % (0.9-11.2); Lymphocytes Absolute Auto 1.87 K/mm3 (0.9-3.2); Lymphocytes Percent Auto 25.5 % (18.3-44.2); Mean Corpuscular HGB Conc 30.3 g/dl (32-36); Mean Corpuscular Hemoglobin 28.3 pg (26-34); Mean Corpuscular Volume 93.1 fl (80-100); Monocytes Absolute Auto 0.5 K/mm3 (0.1-0.6); Monocytes Percent Auto 7.1 % (2.6-8.5); Neutrophils Absolute Auto 4.6 K/mm3 (1.3-6.7); Platelet Count Result 65 k/mm3 (150-375); Red Blood Count 5.38 M/mm3 (4.6-6.20); Red Cell Distribution Width 13.4 % (11.5-14.5); White Blood Count 7.3 K/mm3 (4.5-10.0)
[2025-02-14 20:21] LABS: Alanine Aminotransferase 22 U/L (6-50); Albumin Level 4.2 g/dL (3.5-5.1); Alkaline Phosphatase 50 U/L (38-126); Anion Gap 7 mmol/L (4-12); Aspartate Amino Transferase 48 U/L (17-59); Bilirubin,Total 0.6 mg/dL (0.2-1.3); Blood Urea Nitrogen 16 mg/dL (9-20); Calcium 9.3 mg/dL (8.4-10.2); Carbon Dioxide 30 mmol/L (22-30); Chloride 102 mmol/L (98-107); Estimated Glomerular Filt Rate > 60; Glucose 102 mg/dL (65-110); Potassium 4.6 mmol/L (3.4-5.0); Sodium 139 mmol/L (137-145); Total Protein 7.4 g/dL (6.3-8.2)
[2025-02-14 20:41] LABS: Platelet Estimate Decreased (Adequate); Schistocytes None Seen
[2025-02-18 15:42] LABS: NIL 0.02 IU/mL; Quantiferon TB Plus, 1T NEGATIVE (NEGATIVE); TB2-NIL 0.01 IU/mL
== END 2025-02-14 10:41 | disposition home or self-care (01) ==
PROVIDERS: PCP Nurse Practitioner Adult Health
DX: L40.0 Psoriasis vulgaris (principal); Z79.899 Other long term (current) drug therapy
CPT/HCPCS: 36415; 80053; 85025; 85055; 86480

== ENCOUNTER 2025-04-19 09:31 | Outpatient (CLI) | payer MEDICARE, SELFPAY ==
--- OUTSIDE RECORDS SUMMARY | 2025-04-19 09:39 | XMS_ITS | Continuity of Care Document ---
Author Organization [facility]. If a dditional information is needed, contact Health Information Management at [phone] Address [address] [place] [address] Phone Care Team Providers Care Diploma Maker Name Role Phone Unavailable Unavailable Unavailable Unavailable Unavailable Unavailable Unavailable Unavailable Unavailable Problems Indigestion Onset:12-Nov-2022 Calin Menezes MD Allergies and Adverse Reactions No Known Drug Allergies(Melo rgy) Onset: 12-Nov-2022 Medications labetalol hydrochloride 5 MG /ML Injectable Solution;80 MILLIGRAM X3ED Quantity:1 Calin Menezes MD Start:12-Nov-2022 Status:Discontinued Comments:[id number] labetalol hydrochloride 5 MG /ML Injectable Solution;10 MILLIGRAM X3ED Quantity:1 Calin Menezes MD Start:12-Nov-2022 Status:Discontinued Comments:[id number] 0.8 ML adalimumab 50 MG/ML P refilled Syringe [Humira];40 MILLIGRAM SUBCUTANEOUS Q14D Start:12-Nov-2022 Comments:40 MG SUBQ Q14D aspirin 81 MG Chewable Table t [Liz Aspirin];81 MILLIGRAM PO DAILY Start:12-Nov-2022 Comments:81 MG PO DAILY lisinopril 40 MG Oral Tablet ;40 MILLIGRAM PO DAILY Start:12-Nov-2022 Comments:40 MG PO DAILY Social History Smoking Status Never smoked tobacco Recorded: 12-Nov-2022
--- OUTSIDE RECORDS SUMMARY | 2025-04-19 09:40 | XMS_ITS | Encounter Summary ---
Author Organization [facility] Address [address] [facility] [place] [address] Phone Care Team Providers Care Cigar Making Machine Supervisor Name Role Phone Janette Smith Primary Care Pro vider Reason for Visit * Reason Onset Date Comments Referral 02/14/2025 Encounter Details Date Type Department Care Team (Late st Contact Info) Description 02/14/2025 Telephone [facility] Call Center [address] [place] [address] Janette Smith, JOSE MARIA [address] [place] [address] Referral Social History Tobacco Use Types Packs/Day Years Used Date Smoking Tobacco: Former Cigarettes 1.5 25 1 970 - 1994 Smokeless Tobacco: Never Alcohol Use Standard Drinks/Week Comments Not Currently 2 (1 standard drink = 0.6 oz pur e alcohol) [facility] Utilities Answer Date Recorded In the past 12 months has [employer] electric, gas, oil, or water company threatened [...] declined 09/30/2024 How often do you attend judaism or bahai serv ices? Patient declined 09/30/2024 Do you belong to any clubs o r organizations such as judaism groups, unions, fraternal or athletic groups, or [...] Total Score - Questions 1-9 1 10/02 [facility] Occupat ional [facility] - Occupational Stress Questionnaire Answer Date [...] any time in the past 12 m [facility], were you homeless or living in a group home (including now)? Patient declined 09/30/2024 Sex and Gender Information Value Date Recorded Sex Assigned at Not on file Legal Sex Male 11:49 PM CDT Gender Identity Not on file Sexual Orientation Not on file documented as of this encounter Miscellaneous Notes * Telephone Encounter - Janette Smith PAC - 02/15/2025 12:36 PM CDT Pt is a smoker He had a screening abdominal u/s performed to see is his abdominal aorta was enlarged It is, denoting possible aneurysm (widening from its normal diameter) It is estimated to be around 3.3 cm This would warrant an u/s to be repeated every 3 years (due again in 3 years) I am being proactive and having him see vascular so that they can be involved Guidelines: < 2.6 cm No follow up [...] >= 5.5 cm Referral to vascular surgeon * Telephone Encounter - Bonnie Michelle - [...] is not wanting to travel if possible. [facility] is not in his insurance network. Patient would like a phone call about diagnosis and to speak about getting referral getting printed. Thank you! Bonnie Michelle [facility] - Referrals opt 7 documented in this encounter Plan of Treatment Upcoming Encounters Date Type Department Care Team (Late st Contact Info) Description 05/04/2025 9:00 AM CDT Office Visit [facility] - Primary Care - [place] [address] [place] [address] Janette Smith PAC [address] [place] [address] documented as of this encounter Visit Diagnoses Not on filedocumented in this encounter Additional Health Concerns Assessment Noted Time PHQ-9 Depression Total Score: 1 10/28/19 25 9:09 AM LOGISTICS/SHIPPER documented as of this encounter Care Teams Cigar Making Machine Supervisor Relationship Specialty Start Date End Date Janette Smith PAC PCP - General Physician Automobile Contract Clerk 10/28/24 documented as of this encounter
--- OUTSIDE RECORDS SUMMARY | 2025-04-19 09:40 | XMS_ITS | Clinical Summary ---
Author Organization [facility] lt Address [address] [place] [address] [place] [address] Care Team Providers Care Knotter Hand Name Role Phone Arianne Cabrera NP Primary Care Provider [phone] Allergies No known active allergies Medications folic [...] 08/14/2021 Assessment & Plan (08/14/2021 8:52 AM MAINTAINER OPERATOR): Reviewed need to lose weight, reviewed health benefits. Reviewed recommendations for daily intake & activity 20-30 minutes/day. Discussed healthy diet and importance of regular physical activity. Encounter for Medicare annual wellness exam 07/01 Assessment & Plan (08/11/2021 10:51 AM MAINTAINER OPERATOR): 1. Eat a healthy diet: focus on lean meats and proteins, more fruits, vegetables and whole grains and low in sugars and fats. Limit red meat and avoid processed meat. 2. Maintain a healthy weight; avoid being overweight. Aim for a normal body mass index (BMI) of 18.5-24.9. Help learning to eat healthier, we can set up appointment with chemistry faculty member/cloud engagement partner. 3. Have an active lifestyle, strive for [...] 11/04/2019 Assessment & Plan (08/11/2021 10:57 AM MAINTAINER OPERATOR): Atorvastatin 40mg daily. Denies myalgias. 02/21/20 SY=986 HDL=39 CO=644 PNR=707 TC/HDL=6.0 02/22/21 GV=333 HDL=42 CX=174 LDL=86 TC/HDL=4 JMCWXY=133 04/30/21 ZC=573 HDL=43 SB=431 LDL=88 TC/HDL=4 UKHLUY=584 We will check labs and make adjustments [...] flags. Assessment & Plan (11/04/2019 10:45 AM MAINTAINER OPERATOR): 04/29/19 JX=368 HDL=38 VU=509 WDZ=312 TC/HDL=6.2 fec=863 11/04/19 TU=559 HDL=41 YQ=328 BRK=850 TC/HDL=5.8 UYV=218 Copy of results given to Mr Tyson as well as written explanation. Stressed need for lifestyle/dietary changes. Atorvastatin 40mg sent. Reviewed med SE & scheduling. To make f/u appt in 3 mos; to have labs drawn few days prior to appt. Esophageal reflux 08/02/2019 Assessment & Plan (08/11/2021 10:52 AM MAINTAINER OPERATOR): Pantoprazole 40mg daily. Reviewed provocative foods to [...] bedtime. Assessment & Plan (11/04/2019 10:41 AM MAINTAINER OPERATOR): Continues on pantoprazole for GERD. Last filled [...] bedtime. Assessment & Plan (08/21/2019 5:19 PM MAINTAINER OPERATOR): Likely cause of current chest pain. Was previously well controlled with Prilosec, but this had to be stopped when he started methotrexate for psoriatic arthritis. Assessment & Plan (08/02/2019 11:57 AM MAINTAINER OPERATOR): Instructed on GERD diet and to use [id number]-[id number] calcium carbonate as needed. Restrict caffeine 5 hours before bed. Do not eat 3 hours before bedtime. Cervicalgia 04/29/2019 Assessment & Plan (04/29/2019 10:02 AM CDT): Referral to Dr Valenzuela at [facility] entered per his request. Aware that Dr Valenzuela's office will call to set up appt Long-term use of high-risk medication 04/07/2019 Assessment & Plan (04/07/2019 11:30 PM CDT): Patient on immunosuppressive medications requiring periodic lab monitoring for drug safety. 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 MTX 15mg weekly. Has new pt appt w/Dr Valentino at [place] 01/2022. Has been seeing Dr Janette Palomo (derm) & she plans to start him on Humira. Assessment & Plan (02/20/2020 10:18 PM CDT): Followed by Dr Roland Stoll (rheum). Next office visit 03/30/20 Assessment & Plan (11/04/2019 10:40 AM MAINTAINER OPERATOR): Continues to be followed by Dr Roland Stoll (rheum). KASANDRA 07/05/19. Assessment & Plan (04/07/2019 11:27 PM CDT): Images from the original note were not included. PsA clinically stable on methotrexate (4 tabs). Denies medication side effects. Continue present regimen Hypertension 01/14/2014 Overview (12/04/2016): BP (high blood pressure) Assessment & Plan (08/11/2021 10:55 AM MAINTAINER OPERATOR): Lisinopril 40mg daily. The blood pressure is [...] received. Assessment & Plan (11/04/2019 10:40 AM MAINTAINER OPERATOR): The blood pressure is under good control. Ideally it should be under 130/80. Continue medications without adjustment. Continue efforts to eat well (4-5 fruits and veggies) daily and exercise for about 30 min nearly every day. Watch salt intake, keeping to less than 2000mg per day. Labs ordered today; will contact w/results once received. Assessment & Plan (08/21/2019 5:16 PM MAINTAINER OPERATOR): Continue home lisinopril. Assessment & Plan (12/16/2017 [...] study-he will consider after his vacation in [place] Assessment & Plan (11/24/2017 9:19 AM CDT): [...] 12/19/2011 Assessment & Plan (08/21/2019 5:17 PM MAINTAINER OPERATOR): Monitored regularly as an outpatient. 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 Assessment [...] (08/22/2019): Added automatically from request for surgery [id number] Other chest pain 08/02/2019 07/10/2021 Assessment & Plan (08/21/2019 5:20 PM MAINTAINER OPERATOR): Most likely caused by GERD and hiatal [...] morning. Assessment & Plan (08/02/2019 12:09 PM MAINTAINER OPERATOR): Will place referral to Cardiology. EKG shows [...] healthier, we can set up appointment with chemistry faculty member/cloud engagement partner. 3. Have an active lifestyle, strive for [...] 07/10/2021 Assessment & Plan (11/04/2019 8:42 AM MAINTAINER OPERATOR): Has lost 4# since 07/2019 appt here [...] other calcium sources. Consider making short and long term care pharmacist goal to track your progress. Keep a diet/exercise record or on line resource to track calories in and out. Discuss your efforts with me at the next visit. Look up [employer] - this is a free calorie tracking ernestina. Discussed healthy diet and importance of regular physical activity. Assessment & Plan (08/21/2019 5:20 PM MAINTAINER OPERATOR): Encourage weight loss. Assessment & Plan (04/29/2019 [...] 11/03/2019 Assessment & Plan (08/02/2019 11:57 AM MAINTAINER OPERATOR): Advised on need for weight loss. Advised [...] on the mornings he did have his EVRGARA's. Will also increase his lisinopril to take [...] on file Legal Sex Male 8:04 PM MAINTAINER OPERATOR Gender Identity Not on file Sexual Orientation [...] 11/09/2020, Additional history exists Influenza Vaccine (#1) 2025 , 06/05/2020, 06/24/2019, Additional history exists DTaP/Tdap/Td [...] CDT) Hep C Ab Nonreactive Nonreactive ORIN LOOB Comment: Interpretive Data Nonreactive: Antibodies to HCV [...] L ORDERABLES Final Result Performing Organization Address [facility] Co de Phone [facility] [id number] Department [place] [address] * PSA screen (02/22/2021 9:54 AM CDT) [...] ORDERABLES Trena l Result Performing Organization Address [facility] Co de Phone Number ORIN LOBO [address] Department [place] [address] * COLONOSCOPY (04/09/2018 8:23 AM CDT) Anatomical Region Laterality Modality Other Narrative Procedure Note Star Palma MD - 04/09/2018 8:23 AM CDT [facility] Patient Name: Alexandru Tyson Procedure Date: 04/09/2018 8:23 AM Date of : 1950 Admit Type: Outpatient Age: 67 Gender: Male Attending MD: Star Palma M.D. Room: [facility] ENDOSCOPY ROOM 1 Note Status: Finalized Procedure: [...] scope was passed under direct vision.The Colonoscope [id number] was introducedthrough the anus and advanced to [...] history of colonic polyps CPT copyright 2017 [employer]. All rights reserved. The codes documented in this report are preliminary and upon regulatory and compliance technician reviewmay be revised to meet current compliance requirements. Recognized by the [employer] for promoting quality [...] findings. Electronically signed by: Benjamín Fontenot M.D. Adrianaoh Shirley Dhillon MD IMG CT PROCEDURES Trena l Result from Last 3 Months or Most Recently Relevant to Health Maintenance Insurance [facility] MEDICARE HMO [facility] MEDICARE HMO Advance Directives For more information, please contact: [phone] * Full Code (Latest Code Status on [...] First Alternate Health Care Agent Care Teams Knotter Hand Relationship Specialty Start Date End Date Arianne Cabrera NP [address] [place] [address] PCP - General Nurse Practitioner 04/14/24
--- OUTSIDE RECORDS SUMMARY | 2025-04-19 09:40 | XMS_ITS | Clinical Summary ---
Author Organization [facility] Address [address] [place] [address] Phone Care Team Providers Care Environmental Inspector Name Role Phone Janette Smith 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 Other hyperlipidemia 10/28/2024 Psoriatic arthritis 10/28/2024 Former smoker, stopped smoking in distant past 0 10/28/2024 Colon polyps 06/01/2024 Hypertension Arthritis Psoriasis Overview (10/28/2024): DERM follows Dr Clif Palomo Distinctive Derm Pyloric stenosis, congenital Resolved Problems Problem Noted Date Diagnosed Date Resolved Date Colitis 09/30/2024 10/01/2024 Encounters Date Type Department Care Team Description 02/14/2025 8:10 AM CDT Lab [facility] Internal Medicine [facility] [address] [place] [address] Lab, David Primary hypertension; Well adult exam; Abnormal finding of blood chemistry, unspecified; Prostate cancer screening; Need for hepatitis C screening test Discharge Disposition: Discharged to home or Selfcare 02/14/2025 Documentation Only [facility] Internal Medicine [facility] [address] [place] [address] Janette Smith PAC 02/14/2025 Telephone [facility] Central Call Center [address] [place] [phone] Janette Smith, JOSE MARIA Referral 02/14/2025 Travel from Last 3 Months Family History [...] = 0.6 oz pur e alcohol) [facility] Utilities Answer Date Recorded In the past 12 months has foodjunky, gas, oil, or water [employer] threatened to shut off services in your home? Patient declined 09/30/2024 Social Connection and Isolation Panel Answer Date Recorded In a typical week, how many times do you talk on the phone with family, friends, or neighbors? Patient declined 09/30/2024 How often do you get togethe r with friends or relatives? Patient declined 09/30/2024 How often do you attend gnosticism or zoroastrianism serv ices? Patient declined 09/30/2024 Do you belong to any clubs o r organizations such as gnosticism groups, unions, fraternal or athletic groups, or [...] Total Score - Questions 1-9 1 10/02 [facility] of Occupat ional [facility] - Occupational Stress Questionnaire Answer Date [...] any time in the past [address] [facility], were you homeless or living in a mcc (including now)? Patient declined 09/30/2024 Sex and Gender Information Value Date Recorded Sex Assigned at Not on file Legal Sex Male 11:49 PM CDT Gender Identity Not on file Sexual Orientation Not on file Last Filed Vital Signs Vital Sign Reading Time Taken Comments Blood Pressure 134/84 10/28/2024 9:12 AM CHAMBER MAGISTRATE Pulse 84 10/28/2024 9:12 AM CHAMBER MAGISTRATE Temperature 36.6 C (97.9 F) 10/28/2024 9:12 AM CHAMBER MAGISTRATE Respiratory Rate 12 10/28/2024 9:12 AM CHAMBER MAGISTRATE Oxygen Saturation 95% 10/28/2024 9:12 AM CHAMBER MAGISTRATE Inhaled Oxygen Concentration - - Weight 110.2 kg (243 lb) 10/28/2024 9:12 AM CHAMBER MAGISTRATE Height 177.8 cm (5' 10) 10/28/2024 9:12 AM CHAMBER MAGISTRATE Body Mass Index 34.87 10/28/2024 9:12 AM CHAMBER MAGISTRATE Plan of Treatment Upcoming Encounters Date Type Department Care Team (Late st Contact Info) Description 05/04/2025 9:00 AM CDT Office Visit [facility] - Primary Care - [address] [place] [phone] Janette Smith PAC [address] [place] [address] Health Maintenance Due Date Last Done Comments Cologuard 1995 Immunochemical Fecal Occult Blood 1995 Respiratory Syncytial Virus (RSV) Immunization (Adult) (1 - Risk 60-74 years 1-dose series) 2010 Zoster Immunization (2 of 3) 06/02/2014 04/07/2014 SARS-COV-2 Immunization ( season) 2024 05/19/2024, 06/02/2023, 06/08/2022, Additional history exists Influenza Immunization (#1) 05/01/202505/01, 05/11/2023, 06/02/2022, Additional history exists Colonoscopy 06/01/2029 06/01/2024 Colorectal Cancer Screening 06/01/2029 DTaP/Tdap/Td Immunization Discontinued 11/13/2021 TdaP Immunization Completed 11/13/2021 Pneumococcal Immunization (50+ years) Completed 12/16/2021, 04/29/2019, 06/07/2014, Additional history exists AAA Screening Ultrasound Completed 12/27/2024 Hepatitis C Virus (HCV) Screening Completed 02/14/2025 Hepatitis B Immunization Aged Out No longer [...] Procedure Name Priority Date/Time Associated Diagnosis Comments CBC WITH AUTO DIFFERENTIAL Routine 02/14/2025 8:14 AM CDT Primary hypertension Well adult exam HEPATITIS C ANTIBODY Routine 02/14/2025 8:14 AM CDT Need for hepatitis C screening test PSA SCREEN Routine 02/14/2025 8:14 AM CDT Prostate cancer screening THYROID STIMULATING HORMONE (TSH) Routine 02/14/2025 8:14 AM CDT Primary hypertension Well adult exam LIPID PANEL Routine 02/14/2025 8:14 AM CDT Primary hypertension Well adult exam HEMOGLOBIN A1C W/ ESTIMATED GLUCOSE Routine 02/14/2025 8:14 AM CDT Primary hypertension Well adult exam Abnormal finding of blood chemistry, unspecified COMPLETE BLOOD COUNT (CBC) WITH DIFF Routine 02/14/2025 8:14 AM CDT Primary hypertension Well adult exam CMP (COMPREHENSIVE METABOLIC PANEL) Routine 02/14/2025 8:14 AM CDT Primary hypertension Well adult exam US AAA SCREENING Routine 12/27/2024 10:2 3 AM CDT Screening for AAA (abdominal aortic aneurysm) from Last 3 Months or Most Recently Relevant to Health Maintenance Results * HEMOGLOBIN A1C W/ ESTIMATED GLUCOSE (02/14/2025 8:14 AM CDT) HGB-A1C 5.4 4.0 - 6.0 % 02/14/2025 6:04 PM CDT [facility] Est Average Glucose 108.3 mg/dL 02/14/2025 6:04 PM CDT [facility] Blood Venipuncture / Unknown 02/14/2025 8:14 AM CDT 02/14/2025 8:14 AM CDT Narrative [facility] - 02/14/2025 6:04 PM CDT HEMOGLOBIN A1C: DIABETIC PATIENTS: WELL-CONTROLLED: 6.2 - 7.0 INTERMEDIATE WELL-CONTROLLED: 7.0 - 9.0 POORLY-CONTROLLED: >9.0 Specimens containing greater than 5% of Hemoglobin F may result in lower than expected % HbA1C results. Janette Smith PAC CHEMISTRY ORDERAB LES Final Result [facility] [address] [place] [address] * (ABNORMAL) CBC WITH AUTO DIFFERENTIAL (02/14/2025 8:14 AM CDT) WBC 7.29 4.00 - 12.00 10(3)/mcL 02/14/2025 6:03 PM CDT [facility] RBC 5.41 4.40 - 5.80 10(6)/mcL 02/14/2025 6:03 PM CDT [facility] HEMOGLOBIN (HGB) 15.6 13.0 - 16.5 g/dL 02/14/2025 6:03 PM CDT [facility] HEMATOCRIT (HCT) 49.3 38.0 - 50.0 % 02/14/2025 6:03 PM CDT [facility] MCV 91.1 82.0 - 96.0 fL 02/14/2025 6:03 PM CDT [facility] MCH 28.8 26.0 - 32.0 pg 02/14/2025 6:03 PM CDT [facility] MCHC 31.6 31.0 - 36.0 g/dL 02/14/2025 6:03 PM CDT [facility] PLATELET COUNT 71(L) 140 - 440 10(3)/mcL 02/14/2025 6:03 PM CDT [facility] RDW 13.2 11.8 - 15.5 % 02/14/2025 6:03 PM CDT [facility] MPV 12.9(H) 8.0 - 12.6 fL 02/14/2025 6:03 PM CDT [facility] NEUTROPHILS 58.9 40.0 - 68.0 % 02/14/2025 6:03 PM CDT [facility] LYMPHOCYTES 28.5 19.0 - 49.0 % 02/14/2025 6:03 PM CDT [facility] MONOCYTES 7.1 3.0 - 13.0 % 02/14/2025 6:03 PM CDT [facility] EOSINOPHILS 4.1 0.0 - 8.0 % 02/14/2025 6:03 PM CDT [facility] BASOPHILS 1.1(H) 0.0 - 1.0 % 02/14/2025 6:03 PM CDT [facility] ABSOLUTE NEUTROPHILS 4.29 1.40 - 5.30 10(3)/mcL 02/14/2025 6:03 PM CDT [facility] ABSOLUTE LYMPHOCYTES 2.08 0.90 - 3.30 10(3)/mcL 02/14/2025 6:03 PM CDT [facility] ABSOLUTE MONOCYTES 0.52 0.10 - 0.90 10(3)/mcL 02/14/2025 6:03 PM CDT [facility] ABSOLUTE EOSINOPHIL 0.30 0.00 - 0.50 10(3)/mcL 02/14/2025 6:03 PM CDT [facility] ABSOLUTE BASOPHILS 0.08 0.00 - 0.10 10(3)/mcL 02/14/2025 6:03 PM CDT [facility] NRBC PER 100 WBC 0 02/15/20 6:03 PM CDT [facility] RESULTS ARE CONSISTENT WITH PERIPHERAL SMEAR REVIEW Yes 02/14/2025 6:03 PM CDT [facility] RBC MORPHOLOGY CONSISTENT WITH INDICES Yes 02/14/2025 6:03 PM CDT [facility] Blood Venipuncture / Unknown 02/14/2025 8:14 AM CDT 02/14/2025 8:[address] [facility] HEMATOLOGY ORDERA BLES Final Result [facility] [address] [place] [address] * (ABNORMAL) THYROID STIMULATING HORMONE (TSH) (02/14/2025 8:14 AM CDT) TSH 5.898(H) 0.300 - 5.000 mIU/L 02/14/2025 6:15 PM CDT [facility] Blood Venipuncture / Unknown 02/14/2025 8:14 AM CDT 02/14/2025 8:14 AM CDT Janette Smith PAC CHEMISTRY ORDERAB LES Final Result [facility] [address] [place] [address] * PSA SCREEN (02/14/2025 8:14 AM CDT) PSA SCREEN, TOTAL 1.00 <4.00 ng/mL 02/14/2025 6:15 PM CDT [facility] Blood Venipuncture / Unknown 02/14/2025 8:14 AM CDT 02/14/2025 8:14 AM CDT Narrative [facility] - 02/14/2025 6:15 PM CDT The AuthenticlickNIGoojet Total PSA assay is a Chemiluminescent Microparticle Immunoassay (CMIA) for the quantitative determination of total PSA (both free PSA and PSA complexed to uared-3-gufyyvdtdhyzteae) in human serum. Total PSA values obtained with different assay methods, including Vazquez PSA assays, cannot be used interchangeably. Janette Smith PAC CHEMISTRY ORDERAB LES Final Result [facility] [address] [place] [address] * (ABNORMAL) LIPID PANEL (02/14/2025 8:14 AM CDT) Pathologist [facility] CHOLESTEROL 122 <200 mg/dL 02/14/2025 6:00 PM CDT [facility] TRIGLYCERIDES 91 <150 mg/dL 02/14/2025 6:00 PM CDT [facility] HDL CHOLESTEROL 40(L) >40 mg/dL 6:00 PM CDT [facility] LDL 64 <130 mg/dL 02/14/2025 6:00 PM CDT [facility] VLDL 18 10 - 50 mg/dL 02/14/2025 6:00 PM CDT [facility] CHOL/HDL RATIO 3.1 0.0 - 4.4 02/14/2025 6:00 PM CDT [facility] NON-HDL CHOLESTEROL 82 <130 mg/dL 02/14/2025 6:00 PM CDT [facility] IS THE PATIENT REQUIRED TO BE FASTING? Yes 02/14/2025 6:00 PM CDT [facility] HAS THE PATIENT BEEN FASTING? Yes 02/14/2025 6:00 PM CDT [facility] Blood Venipuncture / Unknown 02/14/2025 8:14 AM CDT 02/14/2025 8:14 AM CDT Janette Romy Smith PAC CHEMISTRY ORDERAB LES Final Result Performing Organization Address City/[facility]/ZIP Co de Phone Number [facility] [address] [place] [address] * HEPATITIS C ANTIBODY (02/14/2025 8:14 AM CDT) Pathologist [facility] hepatitis C antibody 0.22 <1 S/CO 02/14/2025 9:37 PM CDT [facility] Comment: Signal/Cutoff ratio < 0.79 is Nondetected Signal/Cutoff ratio 0.80-0.99 is Grayzone Signal/Cutoff ratio > 0.99 is Detected Supplemental assays are recommended if signal/cutoff ratio is >/=1.00. Signal/cutoff ratio result >/= 5.00 is 97% predictive of positivity for recombinant immunoblot assay (RIBA) and will be reported to the [place] Department of Public Health as required. Blood Venipuncture / Unknown 02/14/2025 8:14 AM CDT 02/14/2025 8:14 AM CDT Janette Smtih PAC CHEMISTRY ORDERAB LES Final Result Performing Organization Address City/[facility]/ZIP Co de Phone Number [facility] [address] [place] [address], [place] * CMP (COMPREHENSIVE METABOLIC PANEL) (02/14/2025 8:14 AM CDT) Pathologist [facility] SODIUM 141 136 - 145 mmol/L 02/14/2025 6:00 PM CDT [facility] POTASSIUM 4.0 3.5 - 5.1 mmol/L 02/14/2025 6:00 PM CDT [facility] CHLORIDE 105 98 - 107 mmol/L 02/14/2025 6:00 PM CDT [facility] CO2, VENOUS 26 22 - 30 mmol/L 02/14/2025 6:00 PM CDT [facility] ANION GAP 14.0 <18.0 mmol/L 02/14/2025 6:00 PM CDT [facility] GLUCOSE 84 70 - 99 mg/dL 02/14/2025 6:00 PM CDT [facility] BUN 12 8 - 26 mg/dL 02/14/2025 6:00 PM T [facility] CREATININE, BLOOD 0.76 0.70 - 1.30 mg/dL 02/14/2025 6:00 PM T [facility] BUN/CREATININE RATIO 16 12 - 20 ratio 02/14/2025 6:00 PM CDT [facility] TOTAL PROTEIN 7.4 6.0 - 8.0 g/dL 02/14/2025 6:00 PM CDT [facility] ALBUMIN 4.2 3.5 - 5.0 g/dL 02/14/2025 6:00 PM T [facility] A/G RATIO 1.3 1.0 - 2.2 02/14/2025 6:00 PM T [facility] CALCIUM 9.0 8.7 - 10.5 mg/dL 02/14/2025 6:00 PM T [facility] T BILI 0.5 0.2 - 1.2 mg/dL 02/14/2025 6:00 PM T [facility] SGOT (AST) 29 <43 U/L 02/14/2025 6:00 PM T [facility] SGPT (ALT) 21 <56 U/L 02/14/2025 6:00 PM T [facility] ALKALINE PHOSPHATASE 50 40 - 150 U/L 02/14/2025 6:00 PM T [facility] IS THE PATIENT REQUIRED TO BE FASTING? No 02/14/2025 6:00 PM CDT [facility] GFR, ESTIMATED >60 >=60 02/14/2025 6:00 PM CDT [facility] Comment: Creatinine Clearance is the preferred criteria for selecting drug dose adjustments in renally impaired patients. The GFR is provided as additional pertinent clinical information. GFR is reported in mL/min/1.73 sq m. Calculation based on the Chronic Kidney Disease Epidemiology Collaboration (CKD- EPI) equation refit without adjustment for race. GFR, EST. >60 >=60 025 6:00 PM CDT [facility] GFR, EST. NONAFRICAN >60 >=60 02/14/2025 6:00 PM CDT [facility] Blood Venipuncture / Unknown 02/14/2025 8:14 AM CDT 02/14/2025 8:14 AM CDT Janette Smith PAC CHEMISTRY ORDERAB LES Final Result [facility] [address] [place] [address] * US AAA SCREENING (12/27/2024 10:23 AM [...] 8:37 AM - Electronically signed by Marek ARAUZ JR Report ID: [id number] Reading Location: [id number] Procedure Note Marek Segovia MD - 01/04/2025 [...] AM - Electronically signed by Marek Segovia M.D., JR: Report ID: [id number] Reading Location: [id number] IMPRESSION: Proximal abdominal aortic aneurysm measuring 3.3 [...] updated Aug 2017 J Vasc Surgery 67:2-77 us Janette Smith PAC IMG US ORDERABLES Final Result from Last 3 Months or Most Recently Relevant to Health Maintenance Insurance MEDICARE C [employer] Advance Directives * Full Code (Latest Code Status on File) Date Activated Date Inactivated Comments 09/30/2024 1:57 AM CPR-Full Treat ment: FULL ARREST: Attempt Resuscitation/CPR wit intubation and mechanical ventilation. PRE-ARREST: Use entire range of life support measures to stabilize the patient. Care Teams Environmental Inspector Relationship Specialty Start Date End Date Janette Smith PAC PCP - General Physician Senior Qa Automation Engineer 10/28/24
--- OUTSIDE RECORDS SUMMARY | 2025-04-19 09:40 | XMS_ITS | Encounter Summary ---
Author Organization [facility] Address [address] [place] [address] Phone Care Team Providers Care Adjunct History Instructor Name Role Phone Manuel Andrews MD Primary Care Provider [phone] Sunita Montano LPN Unavailable [phone] Arianne Cabrera NP Primary Care Provider [phone] Encounter Details Date Type Department Care Team (Late st Contact Info) Description 01/14/2018 Orders Only [facility] ProviderNighat [place] [address] Social History Tobacco Use Types Packs/Day Years Used Date Smoking Tobacco: Former Smokeless Tobacco: Never Alcohol Use Standard Drinks/Week Comments Yes 0 (1 standard drink = 0.6 oz pur e alcohol) Sex and Gender Information Value Date Recorded Sex Assigned at Not on file 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
--- OUTSIDE RECORDS SUMMARY | 2025-04-19 09:41 | XMS_ITS | Clinical Summary ---
Author Organization [facility] Address [address] [place] [address] Care Team Providers Care Program Facilitator Name Role Phone Kody Ahmadi MD Primary Care Provider [phone] Allergies No known active allergies Medications atorvastatin [...] Encounters Date Type Department Care Team Description 04/18/2025 External Device Data [facility] Provider, Abstract 04/04/2025 External Device Data [facility] Provider, Abstract 02/14/2025 External Device Data [facility] Provider, Abstract 01/24/2025 External Device Data [facility]STRA[facility] Provider, [...] Comments Blood Pressure 154/82 10/17/2024 3:53 PM MATERIAL COMBINER Pulse 69 10/17/2024 3:50 PM MATERIAL COMBINER Temperature 36.6 C (97.9 F) 10/17/2024 3:50 PM MATERIAL COMBINER Respiratory Rate 15 10/17/2024 3:50 PM MATERIAL COMBINER Oxygen Saturation 93% 10/17/2024 3:50 PM MATERIAL COMBINER Inhaled Oxygen Concentration - - Weight 110.2 kg (243 lb) 10/17/2024 3:50 PM MATERIAL COMBINER Height 177.8 cm (5' 10) 12/11/2022 3:10 PM CDT Body Mass Index 34.87 12/11/2022 3:10 PM CDT Plan of Treatment Upcoming Encounters Date Type Department Care Team (Late st Contact Info) Description 04/19/2025 10:00 AM CDT Office Visit [facility] Oncology and Hematology - Ted [address] [facility] [address] [place] [address] Kyree Hopper MD [address] [facility] [address] [place] [address] Health Maintenance Due Date Last Done Comments FIT-DNA Q 3 years 1995 FIT/FOBT Q 1 year 1995 Flex Sig/CT Colonography Q 5 years 1995 ZOSTER VACCINE (2 of 3) 06/02/2014 04/07/2014 Abdominal Aortic Aneurysm (A AA) Screening 2015 COVID-19 Vaccine (2023-2 5 season) 2024 12/16/2021, 07/24/2021, 11/09/2020, Additional history exists INFLUENZA VACCINE (#1) 2025 , 06/05/2020, 06/22/2019, Additional history exists RSV VACCINE (60+ or ) (1 - 1-dose 75+ series) 2025 COLORECTAL SCREENING 04/09/2028 04/09/2018, 02/09/20 12 Colorectal Cancer Screening 04/09/2028 DTAP/TDAP/TD VACCINES (2 - T d or Tdap) 11/14/2031 11/13/2021 PNEUMOCOCCAL VACCINE 50+ YEARS Completed 0 12/16/2021, 04/29/2019, 06/07/2014, Additional history exists Insurance [facility] Address: [facility] [id number] [place] [id number] Care Teams Program Facilitator Relationship Specialty Start Date End Date Kody Ahmadi MD PCP - General Family Practice 12/11/22
--- OUTSIDE RECORDS SUMMARY | 2025-04-19 09:41 | XMS_ITS | Encounter Summary ---
Author Organization [facility] Address [address] [place] [address] Care Team Providers Care Media Production Operator Name Role Phone Kody Ahmadi MD Primary Care Provider [phone] Encounter Details Date Type Department Care Team (Late st Contact Info) Description 04/18/2025 External Device Data [facility] Provider, Abstract NO ADDRESS ON FILE Social History Tobacco Use Types Packs/Day Years Used Date Smoking Tobacco: Former Cigarettes Smokeless Tobacco: Never Alcohol Use Standard Drinks/Week Comments Yes 2 [...] Description 04/19/2025 10:00 AM CDT Office Visit [facility] Oncology and Hematology - Ted [address] [place] [address] [address] [place] [address] [place] [address] [place] [address] [address] [place] [address] documented as of this encounter Visit Diagnoses Not on filedocumented in this encounter Care Teams Media Production Operator Relationship Specialty Start Date End Date Kody Ahmadi MD PCP - General Family Practice 12/11/22 documented as of this encounter
--- OUTSIDE RECORDS SUMMARY | 2025-04-19 09:41 | XMS_ITS | Clinical Summary ---
Author Organization [facility] Address [address] [place] [address] Care Team Providers Care Biscuitware Brusher Name Role Phone Manuel Andrews MD Primary Care Provider [phone] Shiv Magallanes DPM Unavailable [phone] [facility],non-owned Affiliates and Associated Physician Practices is amultiple site organization consisting of ambulatory clinics and hospital sitesin [place], [place], [place] and [place]. This disclosure is being madepursuant to the Care Everywhere program and may not contain all information available regarding this patient. Last updated 18.[facility] Allergies No known active allergies Medications * [...] or PCV21) 06/07/2019 06/07/2014, 06/07/2014 COVID-19 VACCINE (1 - 2023-2 5 season) 2024 DEPRESSION SCREENING 08/31/2024 MEDICARE AWV CALENDAR YEAR 2024 INFLUENZA VACCINE (#1) 2025 HEPATITIS B VACCINE Aged Out No [...] patient's age to complete this topic Insurance [facility] [address] [place], [place] [address] [facility] MEDICARE Care Teams Biscuitware Brusher Relationship Specialty Start Date End Date Manuel Andrews MD [address] [place] [address] PCP - General Internal Medicine 06/07/14 Shiv [place]anes [place] [address] Podiatry 06/07/14
[2025-04-19 09:42] LABS: Hematocrit 48.5 % (42.0-52.0); Hemoglobin 15.8 g/dL (14.0-18.0); Immature Granulocyte Percent A 0.3 % (0-0.5); Lymphocytes Absolute Auto 2.27 K/mm3 (0.9-3.2); Mean Corpuscular HGB Conc 32.6 g/dl (32-36); Mean Corpuscular Hemoglobin 28.8 pg (26-34); Mean Corpuscular Volume 88.3 fl (80-100); Nucleated Red Blood Cells Absolute Auto 0.000 K/mm3 (0.0-0.012); Nucleated Red Blood Cells Perc 0.0 % (0.0-0.2); Platelet Count Result 58 k/mm3 (150-375); Red Blood Count 5.49 M/mm3 (4.6-6.20); White Blood Count 7.9 K/mm3 (4.5-10.0)
[2025-04-19 09:45] LABS: Blood Urea Nitrogen 11 mg/dL (8-26); Carbon Dioxide 26 mmol/L (22-30); Chloride 100 mmol/L (98-109); Estimated Glomerular Filt Rate > 60; Glucose 103 mg/dL (70-105); Ionized Calcium (POC) 1.21 mmol/L (1.11-1.31); Potassium 4.5 mmol/L (3.5-4.9); Sodium 138 mmol/L (138-146)
== END 2025-04-19 09:32 | disposition home or self-care (01) ==
LOC: ANHLAB 09:32
PROVIDERS: PCP Nurse Practitioner Adult Health; Visit Provider Internal Medicine Hematology & Oncology
DX: D69.59 Other secondary thrombocytopenia (principal)
CPT/HCPCS: 36415; 80047; 85025

== ENCOUNTER 2025-08-29 10:40 | Outpatient (CLI) | payer MEDICARE, SELFPAY ==
--- NOTE | ~2025-08-29 | XR_ITS ---
EXAMINATION: XR chest 2V 08/29/2025 11:18 INDICATION: Atherosclerosis. PROCEDURE: 2 view chest COMPARISON: No prior studies for comparison. FINDINGS: The lungs are clear. The cardiomediastinal silhouette is within normal limits. There are no pleural effusions. There is no pneumothorax suspected. IMPRESSION: 1: NO ACUTE CARDIOPULMONARY DISEASE. Reviewed, dictated and finalized at location O. RIAL DAMAGE ADJUSTER
--- OUTSIDE RECORDS SUMMARY | 2025-08-29 11:21 | XMS_ITS | Clinical Summary ---
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 Active aspirin 81 MG Chewable Tablet Take 81 mg by mouth daily. Active folic acid (FOLVITE) 1 MG Tablet Take 1 mg by mouth daily. Active Cyanocobalamin 1000 MCG Tablet Take 1,000 mcg by mouth daily. 06/12/20 25 Active prasugrel HCl (EFFIENT) 10 MG Tablet Take 10 mg by mouth daily. Active nitroGLYCERIN (NITROSTAT) 0.4 MG SL Tablet 1 Tablet by Sublingual route every 5 minutes as needed for Chest pain for up to 90 days. 30 Tablet 06/22/20 25 026 Active atorvastatin (LIPITOR) 80 MG Tablet Take 80 mg by mouth nightly. 06/11/20 25 Active isosorbide mononitrate (IMDUR) 60 MG TABLET SR 24 HR Take 60 mg by mouth daily. 06/12/20 25 Active metoprolol Succinate (TOPROL-XL) 50 MG TABLET SR 24 HR Take 50 mg by mouth daily. 10/13/20 25 Active amLODIPine (NORVASC) 10 MG Tablet Take 10 mg by mouth daily. 06/12/20 Active pantoprazole (PROTONIX) 40 MG Tablet Delayed Response Take 40 mg by mouth every morning. 08/02/20 Active LORazepam (ATIVAN) 0.5 MG TabletIndicati ons:Anxiety TAKE 1 TABLET BY MOUTH TWICE A DAY NEEDED FOR ANXIETY 30 Tablet 08/28/20 25 Active LORazepam (ATIVAN) 0.5 MG TabletIndicati ons:Anxiety Take 1 Tablet by mouth 2 times daily as needed for Anxiety. 30 Tablet 08/28/20 25 Active LORazepam (ATIVAN) 0.5 MG TabletIndicati ons:Anxiety TAKE 1 TABLET BY MOUTH TWICE A DAY NEEDED FOR ANXIETY 30 Tablet 07/24/20 25 025 Discontinued(Re order) LORazepam (ATIVAN) 0.5 MG TabletIndicati ons:Anxiety Take 1 Tablet by mouth 2 times daily as needed for Anxiety. 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 Other hyperlipidemia 10/28/2024 Psoriatic arthritis 10/28/2024 Former smoker, stopped smoking in distant past 0 10/28/2024 Colon polyps 06/01/2024 Hypertension Arthritis Psoriasis Overview (10/28/2024): DERM follows Dr Clif Palomo [facility] Pyloric stenosis, congenital Resolved Problems Problem Noted Date Diagnosed Date Resolved Date Colitis 09/30/2024 10/01/2024 Encounters Date Type Department Care Team Description 08/24/2025 [facility] [place] [address] [place] [address] Janette Smith, JOSE MARIA Medication Renewal Request 08/23/2025 Refill [facility] [place] [phone] Janette Smith, PAC Medication Refill 08/23/2025 [facility]ill [facility] [address] [place] [address] Janette Smith, PAC Medication Refill 08/08/2025 9:00 AM STRIPPER LATEX [facility] [address] [address] Janette Smith, JOSE MARIA Dyspnea, unspecified type (Primary Dx); Anxiety Discharge Disposition: Discharged to home or Selfcare 08/08/2025 Travel 08/07/2025 MyChart RX Renewal [facility] [place] - [place] [address] [place] [address] Janette Smith, JOES MARIA Medication Renewal Request 08/03/2025 Telephone [facility] [address] [place] [phone] Janette Smith, PAC Appointment 07/31/2025 Results Follow-Up [facility] [place] [facility] [place] [address] [place] [address] Janette Smith, PAC CT HEAD OR BRAIN WO CONTRAST, CMP (COMPREHENSIVE METABOLIC PANEL), D-DIMER QUANT, Additional followed-up results: 2 07/31/2025 Results Follow-Up [facility] [place] - [address] [address] [place] [address] Janette Smith, PAC CT ANGIO CHEST W/WO CONTRAST WITH PP (POST PROCESSING) 07/26/2025 2:38 PM STRIPPER LATEX - 07/26/2025 11:59 PM STRIPPER LATEX Hospital Encounter [facility] [address] [place] [address] Janette Smith, JOSE MARIA Discharge Disposition: Discharged to home or Selfcare 07/26/2025 1:31 PM STRIPPER LATEX - 07/26/2025 2:37 PM STRIPPER LATEX [facility] [address] [place] [address] Janette Smith, JOSE MARIA Discharge Disposition: Discharged to home or Selfcare 07/26/2025 11:45 AM STRIPPER LATEX Office Visit [facility] [place] [address] [place] [phone] Janette Smith, JOSE MARIA Dyspnea, unspecified type (Primary Dx); Altered mental status, unspecified altered mental status type; Chest pain, unspecified type Discharge Disposition: Discharged to home or Selfcare 07/26/2025 Telephone [facility] - [place] [address] [place] [phone] Janette Smith, PAC 07/26/2025 Travel 07/26/2025 Nurse Triage [facility] [address] [place] [phone] Janette Smith, PAC Shortness of Breath 07/22/2025 Refill [facility] [place] [facility] [place] [address] [place] [phone] Janette Smith, JOSE MARIA Medication Refill 07/17/2025 Telephone [facility] [address] [place] [phone] Janette Smith, JOSE MARIA Advice Only 06/22/2025 10:00 AM CDT Office Visit [facility] Card[facility] [address] [place] [phone] Maynor Varela MD Coronary artery disease involving grindstone coronary artery of grindstone heart without angina pectoris (Primary Dx); Primary hypertension; Other hyperlipidemia Discharge Disposition: Discharged to home or Selfcare 06/22/2025 Travel 06/16/2025 [facility] [place] [address] [place] [address] Janette Smith PAC 06/16/2025 [facility] [address] [place] [phone] Janette Smith PAC Anxiety from Last 3 Months Family History Medical History Relation Name Comments Heart Attack Father Hypertension Mother Relation Name Status Comments Father Mother Social History Tobacco Use Types Packs/Day Years Used Date Smoking Tobacco: Former Cigarettes 1.5 25 1 970 - 1994 Smokeless Tobacco: Never Tobacco Cessation:Counseling Given: No Alcohol Use Standard Drinks/Week Comments Not Currently 2 (1 standard drink = 0.6 oz pur e alcohol) Social Connection and Isolation Panel Answer Date Recorded In a typical week, how many times do you talk on the phone with family, friends, or neighbors? Patient declined 09/30/2024 How often do you get togethe r with friends or relatives? Patient declined 09/30/2024 How often do you attend evangelical or lutheran serv ices? Patient declined 09/30/2024 Do you belong to any clubs o r organizations such as evangelical groups, unions, fraternal or athletic groups, or [...] Total Score - Questions 1-9 1 10/02 [facility] - Occupational Stress Questionnaire Answer Date Recorded Do you feel stress - tense, restless, nervous, or anxious, or unable to sleep at night because your mind is troubled all the time - these days? Patient declined 09/30/2024 Hunger Vital Sign Answer [...] any time in the past 12 m ont, were you homeless or living in a mcc (including now)? Patient declined 09/30/2024 Social Connection and Isolation Panel Answer Date Recorded In a typical week, how many times do you talk on the phone with family, friends, or neighbors? Patient declined 05/25/2025 How often do you get togethe r with friends or relatives? Patient declined 05/25/2025 How often do you attend evangelical or lutheran serv ices? Patient declined 05/25/2025 Do you belong to any clubs o r organizations such as evangelical groups, unions, fraternal or athletic groups, or school groups? Patient declined 05/25/2025 How often do you attend meet ings of the clubs or organizations you belong to? Patient declined 05/25/2025 Are you , , di vorced, , never , or living with a partner? Patient declined 05/25/2025 AUDIT-C Answer Date Recorded Q1: How often do you have a drink containing alc ohol? Patient declined 05/25/2025 Q2: How many drinks containi ng alcohol do you have on a typical day when you are drinking? Patient declined 05/25/2025 Q3: How often do you have si x or more drinks on one occasion? Patient declined 05/25/2025 [facility] - Occupational Stress Questionnaire Answer Date Recorded Do you feel stress - tense, restless, nervous, or anxious, or unable to sleep at night because your mind is troubled all the time - these days? Patient declined 05/25/2025 Exercise Vital Sign Answer Date Recorde d On average, how many days pe r week do you engage in moderate to strenuous exercise (like a brisk walk)? Patient declined On average, how many minutes do you engage in exercise at this level? Patient declined 05/25/2025 Hunger Vital Sign Answer Date Recorded Within [...] from medical appointments or from getting medications? No 05/02 In the past 12 months, has l ack of transportation kept you from meetings, work, or from getting things needed for daily living? No 05/27/2025 Housing Stability Vital Sign Answer Pardeep e Recorded In the last 12 months, was t here a time when you were not able to pay the mortgage or rent on time? No 05/27/2025 In the past 12 months, how m any times have you moved where you were living? 0 05/27/2025 At any time in the past 12 m onths, were you homeless or living in a mcc (including now)? No 05/27/2025 [facility] Utilities Answer Date Recorded In the past 12 months has th e [employer], gas, oil, or water company threatened to shut off services in your home? No 05/27/2025 Sex and Gender Information Value Date Recorded Sex Assigned at Not on file Legal Sex Male 11:49 PM CDT Gender Identity Not on file Sexual Orientation Not on file Last Filed Vital Signs Vital Sign Reading Time Taken Comments Blood Pressure 110/62 08/08/2025 8:49 AM STRIPPER LATEX Pulse 62 08/08/2025 8:49 AM STRIPPER LATEX Temperature 36.3 C (97.4 F) 08/08/2025 8:49 AM STRIPPER LATEX Respiratory Rate 12 08/08/2025 8:49 AM STRIPPER LATEX Oxygen Saturation 93% 08/08/2025 8:49 AM STRIPPER LATEX Inhaled Oxygen Concentration - - Weight 105.2 kg (232 lb) 08/08/2025 8:49 AM STRIPPER LATEX Height 177.8 cm (5' 10) 06/22/2025 10:00 AM CDT Body Mass Index 33.29 06/22/2025 10:00 AM CDT Plan of Treatment Upcoming Encounters Date Type Department Care Team (Late st Contact Info) Description 09/25/2025 10:00 AM STRIPPER LATEX [facility] [address] [place] [address] Maynor Varela MD [address] [address] Discharge Disposition: Discharged to home or Selfcare 09/26/2025 2:00 PM STRIPPER LATEX Office Visit [facility]iology - [place] [address] [place] [address] Maynor Varela MD [address] [address] 11/06/2025 10:30 AM CDT Office Visit [facility] - Primary Care - [place] [address] [place] [phone] Janette Smith PAC [address] [place] [address] Health Maintenance Due Date Last Done Comments Cologuard 1995 Immunochemical Fecal Occult Blood 1995 Zoster Immunization (2 of 3) 06/02/2014 04/07/2014 Medicare Initial AWV [id number] 11/29/2022 Influenza Immunization (#1) 05/01/202505/01, 05/11/2023, 06/02/2022, Additional history exists Respiratory Syncytial Virus (RSV) Immunization (Adult) (1 - 1-dose 75+ series) 2025 SARS-COV-2 Immunization ( season) 2025 05/02/2025, 05/19/2024, 06/02/2023, Additional history exists Colonoscopy 06/01/2029 06/01/2024, 06/01/2024 Colorectal Cancer Screening 06/01/2029 DTaP/Tdap/Td Immunization Discontinued 11/13/2021 TdaP Immunization Completed 11/13/2021 Pneumococcal Immunization (50+ years) Completed 12/16/2021, 04/29/2019, 06/07/2014, Additional history exists AAA Screening Ultrasound Discontinued 12/27/2024 Hepatitis C Virus (HCV) Screening Completed 02/14/2025 Hepatitis B Immunization Aged Out No longer eligible based on patient's age to complete this topic Human Papillomavirus (HPV) Immunization (No Doses Required) Completed Meningococcal Immunization (ACWY) Aged Out No longer eligible based on patient's age to complete this topic Rotavirus Immunization Aged Out No lo nger eligible based on patient's age to complete this topic Procedures Procedure Name Priority Date/Time Associated Diagnosis Comments CT ANGIO CHEST W/WO CONTRAST WITH PP (POST PROCESSING) Stat with Interpretation 07/26/2025 3:03 PM STRIPPER LATEX Dyspnea, unspecified type Chest pain, unspecified type CT HEAD OR BRAIN WO CONTRAST Stat with Interpretation 07/26/2025 2:12 PM STRIPPER LATEX Altered mental status, unspecified altered mental status type CBC WITH AUTO DIFFERENTIAL Routine 07/26/2025 1:30 PM STRIPPER LATEX Altered mental status, unspecified altered mental status type URINALYSIS REFLEX IF INDICATED BY ABNORMAL RESULTS Routine 07/26/2025 1:30 PM STRIPPER LATEX Altered mental status, unspecified altered mental status type Dyspnea, unspecified type Chest pain, unspecified type D-DIMER QUANT Routine 07/26/2025 1:30 PM STRIPPER LATEX Chest pain, unspecified type CMP (COMPREHENSIVE METABOLIC PANEL) Routine 07/26/2025 1:30 PM STRIPPER LATEX Altered mental status, unspecified altered mental status type COMPLETE BLOOD COUNT (CBC) WITH DIFF Routine 07/26/2025 1:30 PM STRIPPER LATEX Altered mental status, unspecified altered mental status type PREPARE PLATELETS STAT 05/30/2025 7:3 1 AM CDT PREPARE PLATELETS STAT 05/30/2025 7:3 1 AM CDT HEPATITIS C ANTIBODY Routine 02/14/2025 8:14 AM CDT Need for hepatitis C screening test US AAA SCREENING Routine 12/27/2024 10:23 AM CDT Screening for AAA (abdominal aortic aneurysm) GI IMAGING - COLONOSCOPY Routine 06/01/2024 6:32 AM CDT from Last 3 Months or Most Recently Relevant to Health Maintenance Results * CT ANGIO CHEST W/WO CONTRAST WITH PP (POST PROCESSING) (07/26/2025 3:03 PM STRIPPER LATEX) Anatomical Region Laterality Modality vascular N/A Computed Tomogra phy 07/26/2025 3:03 PM STRIPPER LATEX Impressions 07/26/2025 3:37 PM STRIPPER LATEX IMPRESSION: 1. No pulmonary embolus and no right heart strain. No CT evidence of an acute intrathoracic process. 2. Dense multivessel coronary artery calcification. Narrative 07/26/2025 3:37 PM STRIPPER LATEX Dictating physician: Kira Duke D.O. CT ANGIO CHEST W/WO CONTRAST WITH PP (POST PROCESSING) - 07/26/2025 3:03 PM HISTORY: Dyspnea, unspecified. Chest pain, unspecified. Clinical concern for pulmonary embolism in a patient with shortness of breath. COMPARISON: March 26, 2025 chest x-ray. TECHNIQUE: CT angiography of the pulmonary arteries was performed with multiplanar and maximum intensity projection reformations. Dose modulation, iterative reconstruction, and/or weight based adjustment of the mA/kV was utilized to reduce the radiation dose to as low as reasonably achievable. 100 mL intravenous Isovue 370 administered. 3-D maximal intensity projection images (MIPS) obtained under concurrent supervision. FINDINGS: Contrast Bolus timing: The pulmonary arteries are satisfactorily opacified with contrast medium. Respiratory Motion: There is no significant respiratory motion. Evaluation can be performed to the subsegmental level. Pulmonary Arteries: Unremarkable in size. Pulmonary Embolus: There is no pulmonary embolus. RV: LV Ratio: RV: LV ratio is less than 0.9. OTHER: Mediastinum: Atherosclerotic calcification thoracic aorta. Dense multivessel coronary artery calcification. Lungs/airways/pleura: Respiratory motion compromises evaluation of fine architectural detail. Subtle abnormalities may not be visualized in areas of patient motion. Unremarkable. Upper Abdomen: Surgical clips at the level of the gastroesophageal junction. Correlate with patient's surgical history. Colonic diverticulosis. Soft Tissues/Bones: Degenerative changes spine. Procedure Note Kira Duke DO - 07/26/2025 Dictating physician: Kira Duke D.O. CT ANGIO CHEST W/WO CONTRAST WITH PP (POST PROCESSING) - 07/26/2025 3:03PM HISTORY: Dyspnea, unspecified. Chest pain, unspecified. Clinical concernfor pulmonary embolism in a patient with shortness of breath. COMPARISON: March 26, 2025 chest x-ray. TECHNIQUE: CT angiography of the pulmonary arteries was performed withmultiplanar and maximum intensity projection reformations. Dosemodulation, iterative reconstruction, and/or weight based adjustment ofthe mA/kV was utilized to reduce the radiation dose to as low asreasonably achievable. 100 mL intravenous Isovue 370 administered. 3-Dmaximal intensity projection images (MIPS) obtained under concurrentsupervision. FINDINGS: Contrast Bolus timing: The pulmonary arteries are satisfactorily opacifiedwith contrast medium. Respiratory Motion: There is no significant respiratory motion. Evaluation can be performed to the subsegmental level. Pulmonary Arteries: Unremarkable in size. Pulmonary Embolus: There is no pulmonary embolus. RV: LV Ratio: RV: LV ratio is less than 0.9. OTHER: Mediastinum: Atherosclerotic calcification thoracic aorta. Densemultivessel coronary artery calcification. Lungs/airways/pleura: Respiratory motion compromises evaluation of finearchitectural detail. Subtle abnormalities may not be visualized in areasof patient motion. Unremarkable. Upper Abdomen: Surgical clips at the level of the gastroesophagealjunction. Correlate with patient's surgical history. Colonicdiverticulosis. Soft Tissues/Bones: Degenerative changes spine. IMPRESSION: 1. No pulmonary embolus and no right heart strain. No CT evidence of anacute intrathoracic process. 2. Dense multivessel coronary artery calcification. Janette Stanton Luis PAC IMG CT ORDERABLES Final Result * CT HEAD OR BRAIN WO CONTRAST (07/26/2025 2:12 PM STRIPPER LATEX) Anatomical Region Laterality Modality Head N/A Computed Tomogra phy 07/26/2025 2:12 PM STRIPPER LATEX Impressions 07/26/2025 2:44 PM STRIPPER LATEX IMPRESSION: 1. No acute intracranial abnormality by CT criteria. 2. Chronic small vessel ischemic disease and mild cerebral atrophy. Narrative 07/26/2025 2:44 PM STRIPPER LATEX DICTATING PHYSICIAN: Kira Duke D.O. EXAM: CT HEAD OR BRAIN WO CONTRAST, 07/26/2025 2:12 PM HISTORY: Altered mental status, nonspecific. Memory issues. COMPARISON: None. PROCEDURE: Utilizing 2.5 mm collimation, contiguous axial tomographic images were obtained from the skull base to the cranial vertex. Coronal reformats were obtained. Dose reduction techniques applied. DLP = 1250.43 mGycm. FINDINGS: No acute intracranial hemorrhage. No mass, mass-effect, shift of the midline structures, or abnormal extra-axial fluid collections. The crenshaw-white matter differentiation is diffusely preserved. No current CT evidence of acute infarct; please note that MRI is a more sensitive indicator of acute and hyperacute ischemic change. There are patchy areas of hypoattenuation in the cerebral white matter, consistent with sequela of mild age-related small vessel ischemic changes. Prominent perivascular space versus focal lacunar infarction of remote chronology in the left putamen. The brainstem and cerebellum have normal morphology and CT attenuation. Atherosclerotic calcifications of the visualized intracranial segments of the internal carotid and vertebral arteries. Ventricular system and extra-axial spaces mildly prominent indicating mild cerebral atrophy.. Basal cisterns are patent. The visualized paranasal sinuses, mastoid air cells, and middle ear cavities are well aerated. Small mucus retention cyst right maxillary sinus. No acute skull fractures or destructive osseous lesions. No acute abnormality in the visualized portions of the orbits and globes. Procedure Note Kira Duke, - 07/26/2025 DICTATING PHYSICIAN: Kira Duke D.O. EXAM: CT HEAD OR BRAIN WO CONTRAST, 07/26/2025 2:12 PM HISTORY: Altered mental status, nonspecific. Memory issues. COMPARISON: None. PROCEDURE: Utilizing 2.5 mm collimation, contiguous axial tomographicimages were obtained from the skull base to the cranial vertex. Coronalreformats were obtained. Dose reduction techniques applied. DLP = 1250.43mGycm. FINDINGS: No acute intracranial hemorrhage. No mass, mass-effect, shift of themidline structures, or abnormal extra-axial fluid collections. Thegray-white matter differentiation is diffusely preserved. No current CTevidence of acute infarct; please note that MRI is a more sensitiveindicator of acute and hyperacute ischemic change. There are patchy areas of hypoattenuation in the cerebral white matter,consistent with sequela of mild age-related small vessel ischemic changes.Prominent perivascular space versus focal lacunar infarction of remotechronology in the left putamen. The brainstem and cerebellum have normalmorphology and CT attenuation. Atherosclerotic calcifications of thevisualized intracranial segments of the internal carotid and vertebralarteries. Ventricular system and extra-axial spaces mildly prominent indicating mildcerebral atrophy.. Basal cisterns are patent. The visualized paranasalsinuses, mastoid air cells, and middle ear cavities are well aerated.Small mucus retention cyst right maxillary sinus. No acute skull fracturesor destructive osseous lesions. No acute abnormality in the visualizedportions of the orbits and globes. IMPRESSION: 1. No acute intracranial abnormality by CT criteria. 2. Chronic small vessel ischemic disease and mild cerebral atrophy. Janette Smith PAC IMG CT ORDERABLES Final Result * (ABNORMAL) URINALYSIS REFLEX IF INDICATED BY ABNORMAL RESULTS (07/26/2025 1:30 PM STRIPPER LATEX) SPECIFIC GRAVITY 1.020 1.003 - 1.030 07/26/2025 2:16 PM [facility] URINE PH 6.0 5.0 - 9.0 07/26/2025 2:16 PM [facility] WBC ESTERASE Negative Negative 07/26/2025 2:16 PM [facility] NITRITE Negative Negative 07/26/2025 2:16 PM [facility] PROTEIN, RANDOM URINE 30 mg/dL(A) Negative 07/26/2025 2:16 PM [facility] URINE GLUCOSE, QUAL Negative Negative 07/26/2025 2:16 PM [facility] URINE KETONES Negative Negative 07/26/2025 2:16 PM [facility] UROBILINOGEN Normal Normal mg/dL 07/26/2025 2:16 PM [facility] URINE BLOOD 10 /uL(A) Negative gagan/ul 07/26/2025 2:16 PM [facility] URINALYSIS COLOR Dark Yellow 07/26/2025 2:16 PM [facility] URINALYSIS CLARITY Slightly Cloudy 07/26/2025 2:16 PM [facility] WBC (Urine) 0-5 Negative, 0-5 /hpf 07/26/2025 2:16 PM [facility] URINE RBC'S 0-2 Negative, 0-2 /hpf 07/26/2025 2:16 PM [facility] EPITHELIAL CELLS Occasional /lpf 07/26/2025 2:16 PM [facility] BACTERIA, URINE Few(A) Negative /hpf 07/26/2025 2:16 PM [facility] URINE MUCOUS Many 07/26/2025 2:16 PM [facility] Urine URINE SPECIMEN OBTAINED BY CLEAN CATCH PROCEDURE / Unknown Non-Phlebotomy Collection / Unknown 07/26/2025 1:30 PM STRIPPER LATEX 07/26/2025 1:44 PM STRIPPER LATEX Result [facility] Janette Smith PAC URINE ORDERABLES Final Result [facility] [address] [place] [address] * (ABNORMAL) CBC WITH AUTO DIFFERENTIAL (07/26/2025 1:30 PM STRIPPER LATEX) WBC 9.82 4.00 - 12.00 10(3)/mcL 07/26/2025 2:22 PM STRIPPER LATEX [facility] RBC 5.14 4.40 - 5.80 10(6)/mcL 07/26/2025 2:22 PM [employer]IP[facility]EX [facility] HEMOGLOBIN (HGB) 15.2 13.0 - 16.5 g/dL 07/26/2025 2:22 PM [employer]IPPER [facility]EX [facility] HEMATOCRIT (HCT) 46.1 38.0 - 50.0 % 07/26/2025 2:22 PM [facility]EX [facility] MCV 89.7 82.0 - 96.0 fL 07/26/2025 2:22 PM [employer] [employer]EX [facility] MCH 29.6 26.0 - 32.0 pg 07/26/2025 2:22 PM [employer] [employer]EX [facility] MCHC 33.0 31.0 - 36.0 g/dL 07/26/2025 2:22 PM [employer] [employer] PLATELET COUNT 48(L) 140 - 440 10(3)/mcL 07/26/2025 2:22 PM [facility] RDW 13.9 11.8 - 15.5 % 07/26/2025 2:22 PM [employer] [employer] MPV 13.6(H) 8.0 - 12.6 fL 07/26/2025 2:22 PM [facility] NEUTROPHILS 74.4(H) 40.0 - 68.0 % 07/26/2025 2:22 PM [facility] LYMPHOCYTES 16.1(L) 19.0 - 49.0 % 07/26/2025 2:22 PM [facility] MONOCYTES 6.5 3.0 - 13.0 % 07/26/2025 2:22 PM [facility] EOSINOPHILS 2.0 0.0 - 8.0 % 07/26/2025 2:22 PM [facility] BASOPHILS 0.7 0.0 - 1.0 % 07/26/2025 2:22 PM [facility] IMMATURE GRANULOCYTE 0.3 0.0 - 0.4 % 07/26/2025 2:22 PM [facility] ABSOLUTE NEUTROPHILS 7.30(H) 1.40 - 5.30 10(3)/[facility] 07/26/2025 2:22 PM [facility] ABSOLUTE LYMPHOCYTES 1.58 0.90 - 3.30 10(3)/[facility] 07/26/2025 2:22 PM [facility] ABSOLUTE MONOCYTES 0.64 0.10 - 0.90 10(3)/[facility] 07/26/2025 2:22 PM [facility] ABSOLUTE EOSINOPHIL 0.20 0.00 - 0.50 10(3)/[facility] 07/26/2025 2:22 PM [facility] ABSOLUTE BASOPHILS 0.07 0.00 - 0.10 10(3)/[facility] 07/26/2025 2:22 PM [facility] ABSOLUTE IMMATURE GRANULOCYTE 0.03 0.00 - 0.03 10 (3) [facility]. 07/26/2025 2:22 PM [facility] NRBC PER 100 WBC 0 07/26/20 2:22 PM [facility] RESULTS ARE CONSISTENT WITH PERIPHERAL SMEAR REVIEW Yes 07/26/2025 2:22 PM [facility] RBC MORPHOLOGY CONSISTENT WITH INDICES Yes 07/26/2025 2:22 PM [facility] Blood Venipuncture / Unknown 07/26/2025 1:30 PM [employer]IPPER [facility]EX 07/26/2025 1:44 PM STRIPPER LATEX Janette Smith [facility] HEMATOLOGY ORDERA BLES Final Result Performing Organization Address [facility] Co de Phone Number [facility] [address] [place] [address] * (ABNORMAL) D-DIMER QUANT (07/26/2025 1:30 PM STRIPPER LATEX) Pathologist [facility] D DIMER 1.17(H) <0.50 mcg/mL FEU 07/26/2025 2:02 PM STRIPPER LATEX [facility] Blood Venipuncture / Unknown 07/26/2025 1:30 PM [facility] 07/26/2025 1:44 PM [facility]IPPER [facility]EX Narrative [facility] - 07/26/2025 2:02 PM STRIPPER LATEX The FDA has approved this method to exclude the diagnosis of DVT and/or PE at the cutoff value of <0.50 mcg/mL FEU. Janette Floresarlin [facility] HEMATOLOGY ORDERA BLES Final Result Performing Organization Address [facility] Co de Phone Number [facility] [address] [place] [address] * CMP (COMPREHENSIVE METABOLIC PANEL) (07/26/2025 1:30 PM STRIPPER LATEX) SODIUM 140 136 - 145 mmol/L 07/26/2025 3:02 PM [facility] POTASSIUM 4.1 3.5 - 5.1 mmol/L 07/26/2025 3:02 PM [facility]EX [facility] CHLORIDE 105 98 - 107 mmol/L 07/26/2025 3:02 PM [facility]EX [facility] CO2, VENOUS 27 22 - 30 mmol/L 07/26/2025 3:02 PM [facility] ANION GAP 12.1 <18.0 mmol/L 07/26/2025 3:02 PM [facility] [facility] GLUCOSE 99 70 - 99 mg/dL 07/26/2025 3:02 PM [facility] BUN 12 8 - 26 mg/dL 07/26/2025 3:02 PM [facility] CREATININE, BLOOD 0.82 0.70 - 1.30 mg/dL 07/26/2025 3:02 PM [facility] BUN/CREATININE RATIO 15 12 - 20 ratio 07/26/2025 3:02 PM [facility] TOTAL PROTEIN 7.3 6.0 - 8.0 g/dL 07/26/2025 3:02 PM [facility] ALBUMIN 4.3 3.5 - 5.0 g/dL 07/26/2025 3:02 PM [facility] A/G RATIO 1.4 1.0 - 2.2 07/26/2025 3:02 PM [facility] CALCIUM 9.7 8.7 - 10.5 mg/dL 07/26/2025 3:02 PM [facility] T BILI 1.1 0.2 - 1.2 mg/dL 07/26/2025 3:02 PM [facility] SGOT (AST) 25 <43 U/L 07/26/2025 3:02 PM [facility] SGPT (ALT) 24 <56 U/L 07/26/2025 3:02 PM [facility] ALKALINE PHOSPHATASE 60 40 - 150 U/L 07/26/2025 3:02 PM [facility] IS THE PATIENT REQUIRED TO BE FASTING? No 07/26/2025 3:02 PM [facility] GFR, ESTIMATED >60 >=60 07/26/2025 3:02 PM [facility] Comment: Creatinine Clearance is the preferred criteria for selecting drug dose adjustments in renally impaired patients. The GFR is provided as additional pertinent clinical information. GFR is reported in mL/min/1.73 sq m. Calculation based on the 2020 Chronic Kidney Disease Epidemiology Collaboration (CKD-EPI) equation refit without adjustment for race. GFR, EST. >60 >=60 11/26/2 025 3:02 PM STRIPPER LATEX [facility] Comment: Creatinine Clearance is the preferred criteria for selecting drug dose adjustments in renally impaired patients. The GFR is provided as additional pertinent clinical information. GFR is reported in mL/min/1.73 sq m. Calculation based on the 2009 Chronic Kidney Disease Epidemiology Collaboration (CKD-EPI). GFR, EST. NONAFRICAN >60 >=60 07/26/2025 3:02 PM [facility]IPPER LATEX [facility] Comment: Creatinine Clearance is the preferred criteria for selecting drug dose adjustments in renally impaired patients. The GFR is provided as additional pertinent clinical information. GFR is reported in mL/min/1.73 sq m. Calculation based on the 2009 Chronic Kidney Disease Epidemiology Collaboration (CKD-EPI). Blood Venipuncture / Unknown 07/26/2025 1:30 PM [facility] 07/26/2025 2:37 PM [facility] Janette Smith PAC CHEMISTRY ORDERAB LES Final Result [facility] [address] [place] [address] * PREPARE PLATELETS (05/30/2025 7:31 AM CDT) Only the most recent of2 resultswithin the time period is included. Product Code D1247O07 [facility] Unit Number [id number] [facility] UNIT_ABO A [facility] UNIT_RH POS [facility] Dispense Status TRANSFUSED [facility] Blood Expiration Date [id number] [facility] Blood Type Barcode 6200 [facility] Product Volume 289 [facility] Coding System [id number] [facility] Blood Ghassan Darling MD BLOOD BANK ORDERABLES Final R esult [facility] [address] [place] [address] * HEPATITIS C ANTIBODY (02/14/2025 8:14 AM CDT) hepatitis C antibody 0.22 <1 S/CO 02/14/2025 9:37 PM CDT [facility] Comment: Signal/Cutoff ratio < 0.79 is Nondetected Signal/Cutoff ratio 0.80-0.99 is Grayzone Signal/Cutoff ratio > 0.99 is Detected Supplemental assays are recommended if signal/cutoff ratio is >/=1.00. Signal/cutoff ratio result >/= 5.00 is 97% predictive of positivity for recombinant immunoblot assay (RIBA) and will be reported to the [place] Department [facility] Public [facility] as required. Blood Venipuncture / Unknown 02/14/2025 8:14 AM CDT 02/14/2025 8:14 AM CDT us Janette Smith PAC CHEMISTRY ORDERAB LES Final Result Performing Organization Address City/State/[facility] Co de Phone Number [facility] [address] [place] [address], [place] * US AAA SCREENING (12/27/2024 10:23 AM [...] by Marek Segovia M.D., JR: Report ID: [id number] Reading Location: [id number] Procedure Note Marek Segovia MD - 01/04/2025 [...] by Marek Segovia M.D., JR: Report ID: [id number] Reading Location: [id number] IMPRESSION: Proximal abdominal aortic aneurysm measuring 3.3 [...] Smith PAC IMG US ORDERABLES Final Result * GI IMAGING - COLONOSCOPY (06/01/2024 6:32 AM CDT) us Isai Crump MD IMG DIAGNOSTIC ORDERABLES Final Result from Last 3 Months or Most Recently Relevant to Health Maintenance Insurance MEDICARE C [facility] Advance Directives * Full Code (Latest Code Status on File) Date Activated Date Inactivated Comments 05/28/2025 3:19 PM CPR-Full Treat ment: FULL ARREST: Attempt Resuscitation/CPR wit intubation and mechanical ventilation. PRE-ARREST: Use entire range of life support measures to stabilize the patient. * Full Code Date Activated Date Inactivated Comments 05/25/2025 12:33 PM 05/28/2025 3:19 PM CPR-Full Tr eatment: FULL ARREST: Attempt Resuscitation/CPR wit intubation and mechanical ventilation. PRE-ARREST: Use entire range of life support measures to stabilize the patient. * Full Code Date Activated Date Inactivated Comments 09/30/2024 1:57 AM 05/25/2025 12:33 PM CPR-Full Tr eatment: FULL ARREST: Attempt Resuscitation/CPR wit intubation and mechanical ventilation. PRE-ARREST: Use entire range of life support measures to stabilize the patient. Care Teams Waste And Batting Waste Chopper Relationship Specialty Start Date End Date Janette Smith PAC PCP - General Physician Supersonic Engineer 10/28/24 Maynor Varela MD [address] [address] Consulting Physician Cardiology 06/23/25
--- OUTSIDE RECORDS SUMMARY | 2025-08-29 11:21 | XMS_ITS | Encounter Summary ---
Author Organization [facility] Address [address] [place] [address] Phone Care Team Providers Care Clinical Support Tech Name Role Phone Janette Smith Primary Care Pro vider Maynor Varela MD Unavailable [phone] Reason for Visit * Reason Comments Medication Refill Encounter Details Date Type Department Care Team (Late st Contact Info) Description 08/23/2025 Refill [facility] - Primary Care - [place] [address] [place] [address] Janette Smith PAC [address] [place] [address] Medication Refill Social History Tobacco Use Types Packs/Day Years [...] declined 09/30/2024 How often do you attend islam or episcopal serv ices? Patient declined 09/30/2024 Do you belong to any clubs o r organizations such as islam groups, unions, fraternal or athletic groups, or [...] Total Score - Questions 1-9 1 10/02 [facility] - [...] any time in the past 12 m [facility], were you homeless or living in a care home (including now)? Patient declined 09/30/2024 Social Connection and Isolation Panel Answer Date Recorded In a typical week, how many times do you talk on the phone with family, friends, or neighbors? Patient declined 05/25/2025 How often do you get togethe r with friends or relatives? Patient declined 05/25/2025 How often do you attend islam or episcopal serv ices? Patient declined 05/25/2025 Do you belong to any clubs o r organizations such as islam groups, unions, fraternal or athletic groups, or [...] drinks on one occasion? Patient declined 05/25/2025 [facility] - [...] any time in the past 12 m [facility], were you homeless or living in a care home (including now)? No 05/27/2025 [facility] Utilities Answer Date Recorded In the past 12 months has th e electric, gas, oil, or water company threatened to shut off services in your home? No 05/27/2025 Sex and Gender Information Value Date Recorded Sex Assigned at Not on file Legal Sex Male 11:49 PM CDT Gender Identity Not on file Sexual Orientation Not on file documented as of this encounter Miscellaneous Notes * Telephone Encounter - Snuita Hernandez RN - 08/23/2025 11:23 AM SEPTIC TANK CLEANER Medication failed the protocol, provider to review and approve the medication order if appropriate. Requested Prescriptions Pending Prescriptions Disp Refills LORazepam (ATIVAN) 0.5 MG Tablet [Pharmacy Med Name: LORAZEPAM 0.5 MG TABLET] 30 Tablet 0 Sig: TAKE 1 TABLET BY MOUTH TWICE A DAY NEEDED FOR ANXIETY Not Delegated - Benzodiazepines Protocol Failed - 08/23/2025 11:23 AM Failed - This refill cannot be delegated Passed - Visit with relevant provider in past 12 months or upcoming 90 days Recent Visits Date Type Provider Dept 08/08/25 Office Visit Janette Smith PAC [facility] 07/26/25 Office Visit Janette Smith, JOSE MARIA [facility] 10/28/24 Office Visit Janette Smith, JOSE MARIA [facility] Showing recent visits within past 365 days and meeting all other requirements Future Appointments Date Type Provider Dept 11/06/25 Appointment Janette Smith PAC [facility] Showing future appointments within next 90 days and meeting all other requirements IC TANK CLEANER documented in this encounter Plan of Treatment Upcoming Encounters Date Type Department Care Team (Late st Contact Info) Description 09/25/2025 10:00 AM SEPTIC TANK CLEANER Appointment [facility] Cardiology Services [address] [place] [address] Maynor Varela MD [address] [address] Discharge Disposition: Discharged to home or Selfcare 09/26/2025 2:00 PM SEPTIC TANK CLEANER Office Visit [facility] - Cardiology - [place] [address] [place] [address] Maynor Varela MD [address] [address] 11/06/2025 10:30 AM CDT Office Visit [facility] - Primary Care - [place] [address] [place] [address] Janette Smith PAC [address] [place] [address] documented as of this encounter Visit Diagnoses Diagnosis Anxiety Anxiety state, unspecified documented in this encounter Additional Health Concerns Assessment Noted Time PHQ-9 Depression Total Score: 1 10/28/19 25 9:09 AM SEPTIC TANK CLEANER documented as of this encounter Care Teams Clinical Support Tech Relationship Specialty Start Date End Date Janette Smith PAC PCP - General Physician Marketing Project Coordinator 10/28/24 Maynor Varela MD [address] [facility] [address] [place] [address] Consulting Physician Cardiology 06/23/25 documented as of this encounter
--- OUTSIDE RECORDS SUMMARY | 2025-08-29 11:21 | XMS_ITS | Encounter Summary ---
Author Organization [facility] Address [address] [place] [address] Phone Care Team Providers Care Credit Resolution Representative Name Role Phone Janette Smith Primary Care Pro vider Maynor Varela MD Unavailable [phone] Reason for Visit * Reason Onset Date Comments Referral 02/14/2025 Encounter Details Date Type Department Care Team (Late st Contact Info) Description 02/14/2025 Telephone [facility] [address] [place] [address] Janette Smith, PAC [address] [place] [address] Referral Social History Tobacco Use Types Packs/Day Years Used Date Smoking Tobacco: Former Cigarettes 1.5 25 1 970 - 1994 Smokeless Tobacco: Never Alcohol Use Standard Drinks/Week Comments Not Currently 2 (1 standard drink = 0.6 oz pur e alcohol) [facility] Utilities Answer Date Recorded In the past 12 months has [employer], gas, oil, or water company threatened to [...] declined 09/30/2024 How often do you attend worship or mormonism serv ices? Patient declined 09/30/2024 Do you belong to any clubs o r organizations such as worship groups, unions, fraternal or athletic groups, or [...] Total Score - Questions 1-9 1 10/02 [facility] ional [facility] - Occupational Stress [...] any time in the past 12 m [facility], were you homeless or living in a usp (including now)? Patient declined 09/30/2024 Sex and [...] is not wanting to travel if possible. [facility] is not in his insurance network. Patient would like a phone call about diagnosis and to speak about getting referral getting printed. Thank you! Bonnie Michelle [facility] FCC - Referrals opt 7 documented in this encounter Plan of Treatment Upcoming Encounters Date Type Department Care Team (Late st Contact Info) Description 09/25/2025 10:00 AM ASSOCIATE QUALITY ENGINEER Appointment [facility] Cardiology Services [address] [place] [address] Maynor Varela MD [address] [address] Discharge Disposition: Discharged to home or Selfcare 09/26/2025 2:00 PM ASSOCIATE QUALITY ENGINEER Office Visit [facility] Cardiology - [place] [address] [place] [address] Maynor Varela MD [address] [address] 11/06/2025 10:30 AM CDT Office Visit [facility] - Primary Care - [place] [address] [place] [address] Janette Smith [facility] [address] [place] [address] documented as of this encounter Visit Diagnoses Not on filedocumented in this encounter Additional Health Concerns Assessment Noted Time PHQ-9 Depression Total Score: 1 10/28/19 25 9:09 AM ASSOCIATE QUALITY ENGINEER documented as of this encounter Care Teams Credit Resolution Representative Relationship Specialty Start Date End Date Janette Smith PAC PCP - General Physician Brim Presser 10/28/24 Maynor Varela MD 2 [facility] [address] [address] Consulting Physician Cardiology 06/23/25 documented as of this encounter
--- OUTSIDE RECORDS SUMMARY | 2025-08-29 11:21 | XMS_ITS | Encounter Summary ---
Author Organization [facility] Address [address] [place] [address] Phone Care Team Providers Care Senior Director Creative Services Name Role Phone Srinivasan Jones Primary Care Pro vider Maynor Varela MD Unavailable [phone] Reason for Visit * Reason Onset Date Comments Medication Refill 08/25/2025 Encounter Details Date Type Department Care Team (Late st Contact Info) Description 08/24/2025 MyChart RX Renewal [facility] - Primary Care - [place] [address] [place] [address] Srinivasan Jones, [facility] [address] [place] [address] Medication Renewal Request Social History Tobacco Use Types Packs/Day Years [...] declined 09/30/2024 How often do you attend sikh or confucianism serv ices? Patient declined 09/30/2024 Do you belong to any clubs o r organizations such as sikh groups, unions, fraternal or athletic groups, or [...] Total Score - Questions 1-9 1 10/02 [facility] Occupat ional Health - Occupational [...] any time in the past 12 m [facility], were you homeless or living in a snf (including now)? Patient declined 09/30/2024 Social Connection and Isolation Panel Answer Date Recorded In a typical week, how many times do you talk on the phone with family, friends, or neighbors? Patient declined 05/25/2025 How often do you get togethe r with friends or relatives? Patient declined 05/25/2025 How often do you attend sikh or confucianism serv ices? Patient declined 05/25/2025 Do you belong to any clubs o r organizations such as sikh groups, unions, fraternal or athletic groups, or [...] drinks on one occasion? Patient declined 05/25/2025 [facility] - Occupational [...] any time in the past 12 m [facility], were you homeless or living in a snf (including now)? No 05/27/2025 [facility] Utilities Answer Date Recorded In the [...] encounter Miscellaneous Notes * Telephone Encounter - Sunita Hernandez RN - 08/25/2025 9:08 AM SUPERVISOR CARTOGRAPHY Images from the original note were not included. LORazepam Dispensed Sold Written Strength Quantity Refills Days Supply Provider Pharmacy LORAZEPAM 08/08/2025 No sold data 08/08/2025 0.5 MG 30 0 15 , [facility] [place] [facility] RVISOR CARTOGRAPHY documented in this encounter Plan of Treatment Upcoming Encounters Date Type Department Care Team (Late st Contact Info) Description 09/25/2025 10:00 AM SUPERVISOR CARTOGRAPHY Appointment [facility] Cardiology Services [address] [facility] [place] [address] Maynor Varela MD 2 [facility] [address] [place] [address] Discharge Disposition: Discharged to home or Selfcare 09/26/2025 2:00 PM SUPERVISOR CARTOGRAPHY Office Visit [facility] - Cardiology - [place] [address] [place] [address] Maynor Varela MD [address] [facility] [address] [place] [address] 11/06/2025 10:30 AM CDT Office Visit [facility] - Primary Care - [place] [address] [place] [address] Srinivasan Jones PAC [address] [place] [address] documented as of this encounter Visit Diagnoses Diagnosis Anxiety Anxiety state, unspecified documented in this encounter Additional Health Concerns Assessment Noted Time PHQ-9 Depression Total Score: 1 10/28/19 9:09 AM SUPERVISOR CARTOGRAPHY documented as of this encounter Care Teams Senior Director Creative Services Relationship Specialty Start Date End Date Srinivasan Jones PAC PCP - General Physician Livestock Speculator 10/28/24 Maynor Varela MD [address] [facility] [address] [place] [address] Consulting Physician Cardiology 06/23/25 documented as of this encounter
--- OUTSIDE RECORDS SUMMARY | 2025-08-29 11:21 | XMS_ITS | Clinical Summary ---
Author Organization [address] lt Address [address] [place] [address] [place] [address] Care Team Providers Care Alley Tender Name Role Phone Arianne Cabrera NP Primary Care Provider [phone] Allergies No known active allergies Medications folic [...] 08/14/2021 Assessment & Plan (08/14/2021 8:52 AM SPEECH ASSISTANT): Reviewed need to lose weight, reviewed health benefits. Reviewed recommendations for daily intake & activity 20-30 minutes/day. Discussed healthy diet and importance of regular physical activity. Encounter for Medicare annual wellness exam 07/01 Assessment & Plan (08/11/2021 10:51 AM SPEECH ASSISTANT): 1. Eat a healthy diet: focus on lean meats and proteins, more fruits, vegetables and whole grains and low in sugars and fats. Limit red meat and avoid processed meat. 2. Maintain a healthy weight; avoid being overweight. Aim for a normal body mass index (BMI) of 18.5-24.9. Help learning to eat healthier, we can set up appointment with e commerce specialist/director of broadcast. 3. Have an active lifestyle, strive for [...] 11/04/2019 Assessment & Plan (08/11/2021 10:57 AM SPEECH ASSISTANT): Atorvastatin 40mg daily. Denies myalgias. 02/21/20 ER=557 HDL=39 GA=868 HTU=321 TC/HDL=6.0 02/22/21 JW=254 HDL=42 UX=268 LDL=86 TC/HDL=4 TSNBYO=766 04/30/21 MY=861 HDL=43 WX=920 LDL=88 TC/HDL=4 PYVZCA=049 We will check labs and make adjustments [...] flags. Assessment & Plan (11/04/2019 10:45 AM SPEECH ASSISTANT): 04/29/19 PE=902 HDL=38 OR=999 RWV=494 TC/HDL=6.2 bzc=290 11/04/19 QQ=218 HDL=41 FY=526 NQE=644 TC/HDL=5.8 HIO=796 Copy of results given to Mr Tyson as well as written explanation. Stressed need for lifestyle/dietary changes. Atorvastatin 40mg sent. Reviewed med SE & scheduling. To make f/u appt in 3 mos; to have labs drawn few days prior to appt. Esophageal reflux 08/02/2019 Assessment & Plan (08/11/2021 10:52 AM SPEECH ASSISTANT): Pantoprazole 40mg daily. Reviewed provocative foods to [...] bedtime. Assessment & Plan (11/04/2019 10:41 AM SPEECH ASSISTANT): Continues on pantoprazole for GERD. Last filled [...] bedtime. Assessment & Plan (08/21/2019 5:19 PM SPEECH ASSISTANT): Likely cause of current chest pain. Was previously well controlled with Prilosec, but this had to be stopped when he started methotrexate for psoriatic arthritis. Assessment & Plan (08/02/2019 11:57 AM SPEECH ASSISTANT): Instructed on GERD diet and to use [id number] calcium carbonate as needed. Restrict caffeine 5 hours before bed. Do not eat 3 hours before bedtime. Cervicalgia 04/29/2019 Assessment & Plan (04/29/2019 10:02 AM CDT): Referral to Dr Valenzuela at [facility] entered per his request. Aware that Dr Valenzuela's office will call to set up appt Long-term use of high-risk medication 04/07/2019 Assessment & Plan (04/07/2019 11:30 PM CDT): Patient on immunosuppressive medications requiring periodic lab monitoring for drug safety. 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 MTX 15mg weekly. Has new pt appt w/Dr Valentino at [place] 01/2022. Has been seeing Dr Janette Palomo (derm) & she plans to start him on Humira. Assessment & Plan (02/20/2020 10:18 PM CDT): Followed by Dr Roland Stoll (rheum). Next office visit 03/30/20 Assessment & Plan (11/04/2019 10:40 AM SPEECH ASSISTANT): Continues to be followed by Dr Roland Stoll (rheum). KASANDRA 07/05/19. Assessment & Plan (04/07/2019 11:27 PM CDT): Images from the original note were not included. PsA clinically stable on methotrexate (4 tabs). Denies medication side effects. Continue present regimen Hypertension 01/14/2014 Overview (12/04/2016): BP (high blood pressure) Assessment & Plan (08/11/2021 10:55 AM SPEECH ASSISTANT): Lisinopril 40mg daily. The blood pressure is [...] received. Assessment & Plan (11/04/2019 10:40 AM SPEECH ASSISTANT): The blood pressure is under good control. Ideally it should be under 130/80. Continue medications without adjustment. Continue efforts to eat well (4-5 fruits and veggies) daily and exercise for about 30 min nearly every day. Watch salt intake, keeping to less than 2000mg per day. Labs ordered today; will contact w/results once received. Assessment & Plan (08/21/2019 5:16 PM SPEECH ASSISTANT): Continue home lisinopril. Assessment & Plan (12/16/2017 [...] study-he will consider after his vacation in [place] Assessment & Plan (11/24/2017 9:19 AM CDT): [...] 12/19/2011 Assessment & Plan (08/21/2019 5:17 PM SPEECH ASSISTANT): Monitored regularly as an outpatient. 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 Assessment [...] (08/22/2019): Added automatically from request for surgery [id number] Other chest pain 08/02/2019 07/10/2021 Assessment & Plan (08/21/2019 5:20 PM SPEECH ASSISTANT): Most likely caused by GERD and hiatal [...] morning. Assessment & Plan (08/02/2019 12:09 PM SPEECH ASSISTANT): Will place referral to Cardiology. EKG shows [...] healthier, we can set up appointment with e commerce specialist/director of broadcast. 3. Have an active lifestyle, strive for [...] 07/10/2021 Assessment & Plan (11/04/2019 8:42 AM SPEECH ASSISTANT): Has lost 4# since 07/2019 appt here [...] other calcium sources. Consider making short and detention goal to track your progress. Keep a diet/exercise record or on line resource to track calories in and out. Discuss your efforts with me at the next visit. Look up [employer] - this is a free calorie tracking ernestina. Discussed healthy diet and importance of regular physical activity. Assessment & Plan (08/21/2019 5:20 PM SPEECH ASSISTANT): Encourage weight loss. Assessment & Plan (04/29/2019 [...] 11/03/2019 Assessment & Plan (08/02/2019 11:57 AM SPEECH ASSISTANT): Advised on need for weight loss. Advised [...] on file Legal Sex Male 8:04 PM SPEECH ASSISTANT Gender Identity Not on file Sexual Orientation [...] Cancer Screening-Colonoscopy 04/09/2023 04/09/2018, 02/09/2012 Covid-19 Vaccine (2024-2 6 season) 2025 12/16/2021, 07/24/2021, 11/09/2020, Additional history exists Influenza [...] L ORDERABLES Final Result Performing Organization Address [facility] Co de Phone Number [facility] [address] [address] [place] [address] * PSA screen (02/22/2021 9:54 AM CDT) [...] ORDERABLES Trena l Result Performing Organization Address [facility] de Phone Number [facility] [address] [address] Department [place] [address] * COLONOSCOPY (04/09/2018 8:23 AM CDT) Anatomical Region Laterality Modality Other Narrative Procedure Note Star Palma MD - 04/09/2018 8:23 AM CDT [facility] Patient Name: Alexandru Tyson Procedure Date: 04/09/2018 8:23 AM Date of : 1950 Admit Type: Outpatient Age: 67 Gender: Male Attending MD: Star Palma M.D. Room: [facility] ROOM 1 Note Status: Finalized Procedure: [...] scope was passed under direct vision.The Colonoscope [id number] was introducedthrough the anus and advanced to the the cecum, identifiedby appendiceal orifice and ileocecal valve. The colonoscopy was performed without difficulty. The patient tolerated the procedure well. The quality of the bowel preparation was good. Findings: Hemorrhoids were found on perianal exam. The colon (entire examined portion) appeared normal. Electronically signed by Satr Palma M.D. Star Palma M.D. 04/09/2018 8:56:01 AM Number of Addenda: 0 Note Initiated On: 04/09/2018 8:23 AM Procedure Code(s): --- Professional --- G0105, Colorectal cancer screening; colonoscopy on individual at high risk Diagnosis Code(s): --- Professional --- K64.9, Unspecified hemorrhoids Z86.010, Personal history of colonic polyps CPT copyright 2017 [employer]. All rights reserved. The codes documented in this report are preliminary and upon dimensional engineer reviewmay be revised to meet current compliance requirements. Recognized by the [employer] for promoting quality [...] findings. Electronically signed by: Benjamín Fontenot M.D. Adrianaky Shirley Dhillon MD IMG CT PROCEDURES Trena l Result from Last 3 Months or Most Recently Relevant to Health Maintenance Insurance [facility] H[facility] Advance Directives For more information, please contact: [phone] * Full Code (Latest Code Status on [...] First Alternate Health Care Agent Care Teams Alley Tender Relationship Specialty Start Date End Date Arianne Cabrera NP [address] [place] [address] PCP - General Nurse Practitioner 04/14/24
--- OUTSIDE RECORDS SUMMARY | 2025-08-29 11:21 | XMS_ITS | Clinical Summary ---
Author Organization [facility] Te[facility] Address [address] [address] Care Team Providers Care Field Assistant Name Role Phone Kody Ahmadi MD Primary Care Provider [phone] Allergies No known active allergies Medications atorvastatin [...] Encounters Date Type Department Care Team Description 08/15/2025 External Device Data ST[facility] ABSTRACTION Provider, Abstract 08/15/2025 External Device Data ST[facility] ABSTRACTION Provider, Abstract [...] Sign Reading Time Taken Comments Blood Pressure 164/104 04/19/2025 9:51 AM CDT Pulse 84 04/19/2025 9:51 AM CDT Temperature 36.5 C (97.7 F) 04/19/2025 9:51 AM CDT Respiratory Rate 15 10/17/2024 3:50 PM CENTRAL SCHEDULER Oxygen Saturation 93% 10/17/2024 3:50 PM CENTRAL SCHEDULER Inhaled Oxygen Concentration - - Weight 109.8 kg (242 lb) 04/19/2025 9:51 AM CDT Height 177.8 cm (5' 10) 04/19/2025 9:51 AM CDT Body Mass Index 34.72 04/19/2025 9:51 AM CDT Plan of Treatment Upcoming Encounters Date Type Department Care Team (Late st Contact Info) Description 10/25/2025 10:15 AM CENTRAL SCHEDULER Office Visit [facility] On[facility] H[facility] [address] [facility] [address] [place] [address] Kyree Hopper MD [address] [facility] [address] [place] [address] Health Maintenance Due Date Last Done Comments FIT-DNA Q 3 years 1995 FIT/FOBT Q 1 year 1995 Flex Sig/CT Colonography Q 5 years 1995 ZOSTER VACCINE (2 of 3) 06/02/2014 04/07/2014 INFLUENZA VACCINE (#1) 2025 , 06/05/2020, 06/22/2019, Additional history exists COVID-19 Vaccine ( - 2024-2 6 season) 2025 12/16/2021, 07/24/2021, 11/09/2020, Additional history exists RSV VACCINE (60+ or ) (1 - 1-dose 75+ series) 2025 COLORECTAL SCREENING 04/09/2028 04/09/2018, 02/09/20 12 Colorectal Cancer Screening 04/09/2028 DTAP/TDAP/TD VACCINES (2 - T d or Tdap) 11/14/2031 11/13/2021 PNEUMOCOCCAL VACCINE 50+ YEARS Completed 0 12/16/2021, 04/29/2019, 06/07/2014, Additional history exists Abdominal Aortic Aneurysm (A AA) Screening Completed 12/27/2024 Insurance [facility] MCR Care Teams Field Assistant Relationship Specialty Start Date End Date Kody Ahmadi MD PCP - General Family Practice 12/11/22
--- OUTSIDE RECORDS SUMMARY | 2025-08-29 11:21 | XMS_ITS | Encounter Summary ---
Author Organization [facility] Address [address] [place] [address] Phone Care Team Providers Care Textile Supervisor Name Role Phone Janette Smith Primary Care Pro vider Maynor Varela MD Unavailable [phone] Reason for Visit * Reason Onset Date Comments Anxiety 06/16/2025 Encounter Details Date Type Department Care Team (Late st Contact Info) Description 06/16/2025 Nurse Triage [facility] [address] [place] [address] Janette Smith, PAC [address] [place] [address] Anxiety Social History Tobacco Use Types Packs/Day Years [...] declined 09/30/2024 How often do you attend pentecostal or oriental orthodox serv ices? Patient declined 09/30/2024 Do you belong to any clubs o r organizations such as pentecostal groups, unions, fraternal or athletic groups, or [...] Total Score - Questions 1-9 1 10/02 [facility] ional [facility] - Occupational Stress Questionnaire Answer Date [...] a residential (including now)? Patient declined 09/30/2024 Social Connection and Isolation Panel Answer Date Recorded In a typical week, how many times do you talk on the phone with family, friends, or neighbors? Patient declined 05/25/2025 How often do you get togethe r with friends or relatives? Patient declined 05/25/2025 How often do you attend pentecostal or oriental orthodox serv ices? Patient declined 05/25/2025 Do you belong to any clubs o r organizations such as pentecostal groups, unions, fraternal or athletic groups, or [...] drinks on one occasion? Patient declined 05/25/2025 [facility] - [...] or living in a residential (including now)? No 05/27/2025 [facility] Utilities Answer Date Recorded In the [...] encounter Miscellaneous Notes * Telephone Encounter - Leti Henderson RN - 06/20/2025 11:31 AM CDT Appointment scheduled. * Telephone Encounter - Janette Smith PAC - 06/19/2025 5:01 PM CDT Anxiety med was called in today He called the first time late Thursday afternoon We don't check our baskets over weekend This was addressed today Patient was notified No other recommendations He does need to set up a follow up; extended OV * Telephone Encounter - Zac Jean RN - 06/16/2025 3:44 PM CDT Situation:medication management Background:see below note Assessment:patient calling back, states he is frustrated and no one will help him Attempted to explain that we need to wait for providers recommendations Per triage below patient was advised to get to the emergency room Recommendation:Please advise * Telephone Encounter - Marylu Skinner RN - 06/16/2025 3:17 PM CDT SITUATION: 74 y.o. with anxiety BACKGROUND: Patient contacting PCP office. Original call coming to [place] office. Per chart review, last office visit 10/28 ASSESSMENT: Symptom Description / Location: Patient had 9 stents placed 05/29. Returned home on 06/12. Having increased periods of anxiety. Lives alone. Denies surgical concerns. Has had a couple of episodes of difficulty breathing over the last couple of days. Denies this now.Feels it is anxiety related vs. respiratory related. Denies chest pain. Has feelings of impending doom. Patient became increasingly frustrated not wanting to answer any more questions, only wanting medications for anxiety. RECOMMENDATION: Advised will need to update medication list so provider could know what he was taking. When beginning to review medication list, patient stated this RN was unwilling to help him and phone was disconnected. Attempted to call patient back. Voicemail left. * Telephone Encounter - Alexa Hollingsworth - 06/16/2025 3:15 PM CDT Symptom: Anxiety or Panic Attack Outcome: Warm transfer to an emergent RN NOW! Reason: Afraid they are dying The caller accepted this outcome. documented in this encounter Plan of Treatment Upcoming Encounters Date Type Department Care Team (Late st Contact Info) Description 09/25/2025 10:00 AM CLINICAL DIETETIC TECHNICIAN [facility]ointment [facility] [address] [place] [address] Maynor Varela MD [address] [facility] [address] [address] Discharge Disposition: Discharged to home or Selfcare 09/26/2025 2:00 PM CLINICAL DIETETIC TECHNICIAN Office Visit [facility] Medical [facility] - Cardiology - [place] [address] [place] [address] Maynor Varela MD [address] [facility] [address] [place] [address] 11/06/2025 10:30 AM CDT Office Visit [facility] - Primary Care - [place] [address] [place] [address] Janette Smith PAC [address] [place] [address] documented as of this encounter Visit Diagnoses Not on filedocumented in this encounter Additional Health Concerns Assessment Noted Time PHQ-9 Depression Total Score: 1 10/28/19 25 9:09 AM CLINICAL DIETETIC TECHNICIAN documented as of this encounter Care Teams Textile Supervisor Relationship Specialty Start Date End Date Janette Smith PAC PCP - General Physician Machine Pie Maker 10/28/24 Maynor Varela MD [address] [facility] [address] [place] [address] Consulting Physician Cardiology 06/23/25 documented as of this encounter
--- OUTSIDE RECORDS SUMMARY | 2025-08-29 11:21 | XMS_ITS | Clinical Summary ---
Author Organization [facility] Address [address] [place] [address] Care Team Providers Care Cabinet And Trim Installer Name Role Phone Manuel Andrews MD Primary Care Provider [phone] Shiv Magallanes DPM Unavailable [phone] Source Comments [facility],non-owned Affiliates and Associated Physician Practices is amultiple site organization consisting of ambulatory clinics and hospital sitesin [place], [place], [place] and [place]. This disclosure is being madepursuant to the Care Everywhere program and may not contain all information available regarding this patient. Last updated 18.[facility] Allergies No known active allergies Medications * Be aware that medications may not be up to date on this document. Alwaysverify current medications with the patient. aspirin (Aspirin) 81 MG chew tablet Take 1 (one) tablet by mouth once daily (chew and swallow) 90 tablet 2 5 Active isosorbide mononitrate CR 24hr (Imdur) 60 MG tablet Take 1 (one) tablet by mouth once daily 90 tablet 2 5 Active prasugrel (Effient) 10 MG tablet Take 1 (one) tablet by mouth once daily 90 tablet 2 5 Active amLODIPine (Norvasc) 10 MG tablet Take 1 (one) tablet by mouth once daily 90 tablet 2 5 Active metoprolol succinate XL 24hr (Toprol XL) 50 MG tablet Take 1 (one) tablet by mouth once daily 90 tablet 2 5 Active atorvastatin (Lipitor) 80 MG tablet Take 1 (one) tablet by mouth at bedtime 90 tablet 2 5 Active folic acid (Folvite) 1 MG tablet Take 1 (one) tablet by mouth once daily 30 tablet 1 5 Active cyanocobalamin 1000 MCG Take 1 (one) tablet by mouth once daily 30 tablet 1 Active nitroGLYCERIN (Nitrostat) 0.4 MG tablet Dissolve 1 (one) tablet under the tongue every 2 hours as needed for Angina 60 tablet 1 5 Active Active Problems Problem Noted Date Diagnosed Date Triple vessel coronary artery disease 05/29/2025 Chronic ITP (idiopathic thrombocytopenia) 2013 Overview (06/20/2014): [...] alpha blocking medication along with methotrexate soon Encounters Date Type Department Care Team Description 07/03/2025 Refill [facility] [address] [place] [address] Romel Hsieh MD Med Change Request 06/16/2025 Telephone [facility] - Cardiology [address] [facility], [facility] [address] [place] [address] Maynor Varela MD Question 06/15/2025 Telephone [facility] - Centralized Scheduling [address] [place] [address] Maynor Varela MD Appointment 06/09/2025 7:36 AM CDT Anesthesia Event [facility] - Cardiac Metal Furniture Assembler [address] [place] [address] Federica Weems MD Nickelson, Liem Nguyen [facility] 06/09/2025 7:15 AM CDT - 06/09/2025 8:30 AM CDT Surgery [facility] - Cardiac Metal Furniture Assembler [address] [place] [address] Yaneli Serrato MD Left Heart Cath 06/05/2025 9:50 AM CDT - 06/05/2025 12:19 PM CDT Surgery [facility] - Cardiac Metal Furniture Assembler [address] [place] [address] Yaneli Serrato MD Percutaneous Coronary Intervention 05/30/2025 Travel 05/29/2025 9:47 PM CDT - 06/11/2025 2:29 PM CDT Hospital Encounter [facility] [address] [place] [address] Harsha Curry MD Memon, Nada, MD Mehanni, Mina M, MD Arora, Shilpkumar, MD Lin, Chien-Jung, MD Cardiovascular Disease Discharge Disposition: Home or Self Care from Last 3 Months Immunizations Immunization Administration Dates Next Due PNEUMOCOCCAL PPSV23 06/07/2014 Pneumococcal Pcv13 Conj 06/07/2014 ZOSTER VACCINE, LIVE 04/07/2014 Family History Medical History Relation Name Comments myocardial infarction Brother CAD (Coronary Artery Disease) Father myocardial infarction Father myocardial infarction Mother myocardial infarction Sister Relation Name Status Comments Brother Father Mother Sister Social History Tobacco Use Types Packs/Day Years Used Date Smoking Tobacco: Former Cigarettes 1 22 S tarted: 1968 Smokeless Tobacco: Never Tobacco Cessation:Counseling Given: Not Answered Alcohol Use Standard Drinks/Week Comments Not Currently 0 (1 standard drink = 0.6 oz pur e alcohol) prior 2 drinks/week. AUDIT-C Answer Date Recorded Q1: How often do you have a drink containing alcohol? Never 05/30/2025 Q2: How many drinks containi ng alcohol do you have on a typical day when you are drinking? Patient does not drink Q3: How often do you have si x or more drinks on one occasion? Never 05/30/2025 Overall Financial Resource Strain (CARDIA) Answe r Date Recorded How hard is it for you to pa y for the very basics like food, housing, medical care, and heating? Not hard at all 05/30/2025 [facility] - Occupational Stress Questionnaire Answer Date Recorded Do you feel stress - tense, restless, nervous, or anxious, or unable to sleep at night because your mind is troubled all the time - these days? Not at all 05/30/2025 Hunger Vital Sign Answer Date Recorded Within the past 12 months, y ou worried that your food would run out before you got the money to buy more. Never true 05/30/20 25 Within the past 12 months, t he food you bought just didn't last and you didn't have money to get more. Never true 05/30/2025 PRAPARE - Transportation Answer Date Re corded In the past 12 months, has l ack of transportation kept you from medical appointments or from getting medications? No 05/03 In the past 12 months, has l ack of transportation kept you from meetings, work, or from getting things needed for daily living? No 05/30/2025 Housing Stability Vital Sign Answer Pardeep e Recorded In the last 12 months, was t here a time when you were not able to pay the mortgage or rent on time? No 05/30/2025 In the past 12 months, how m any times have you moved where you were living? 0 05/30/2025 At any time in the past 12 m [facility], were you homeless or living in a penitentiary (including now)? No 05/30/2025 Sex and Gender Information Value Date Recorded Sex Assigned at Not on file Legal Sex Male 2:06 PM CDT Gender Identity Not on file Sexual Orientation Not on file Last Filed Vital Signs Vital Sign Reading Time Taken Comments Blood Pressure 102/70 06/11/2025 11:38 AM CDT Pulse 72 06/11/2025 11:38 AM CDT Temperature 36.9 C (98.4 F) 06/11/2025 11:38 AM CDT Respiratory Rate 20 06/11/2025 11:3 8 AM CDT Oxygen Saturation 95% 06/11/2025 11: 38 AM CDT Inhaled Oxygen Concentration 40% 02/2025 10:00 AM CDT Weight 105.6 kg (232 lb 12.8 oz) 06/11/2025 4:00 AM CDT Height 177.8 cm (5' 10) 05/29/2025 10: 00 PM CDT Body Mass Index 33.4 05/29/2025 10:00 PM CDT Plan of Treatment Upcoming Encounters Date Type Department Care Team (Late st Contact Info) Description 09/11/2025 10:20 AM SALES 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 Office Visit [facility] - Cardiology [address] [facility], [place] [address] [place] [address] Maynor Varela MD [address] [facility] [address] [place] [address] Health Maintenance Due Date Last Done Comments COLOGUARD (AGES 45-75) - COLON CA SCREENING 1950 COLON MONITORING 1950 COLONOSCOPY - COLON CA SCREENING 1950 CT COLONOGRAPHY - COLON CA SCREENING 1950 Colorectal Cancer Screening 1950 FIT - COLON CA SCREENING 1950 FLEX SIG - COLON CA SCREENING 1950 HEPATITIS C SCREENING 07/13/1968 DTAP/TDAP/TD VACCINES (1 - Tdap) 1969 ZOSTER VACCINE (2 of 3) 06/02/2014 04/07/2014 PNEUMOCOCCAL VACCINE 50+ (3 of 3 - PCV20 or PCV21) 06/07/2019 06/07/2014, 06/07/2014 DEPRESSION SCREENING 08/31/2024 MEDICARE AWV CALENDAR YEAR 2024 COVID-19 VACCINE ( - season) 2025 12/16/2021, 07/24/2021, 11/09/2020, Additional history exists INFLUENZA VACCINE (#1) 2025 9, 06/22/2019, 06/10/2018, Additional history exists Respiratory Syncytial Virus (RSV) Vaccine Pt: or over 60 yrs (1 - 1-dose 75+ series) 2025 HEPATITIS B VACCINE Aged Out No [...] A/C/Y/W VACCINE Aged Out No longer eligible based on patient's age to complete this topic Medical Devices Implanted Type Area Net Repairer Device Identifier Shelf Expiration Date Model / Serial / Lot Stent Cor [place] 3.00 X 26rx Drg Elut - [id number] 1 Implanted:Qty: 1 on 06/05/2025 at [facility] [employer] [id number] 02/16/2028 [id number] 00 26UX / [id number] / [id number] Stent Cor [place] 3.00 X 22rx Drg Elut - [id number] Implanted:Qty: 1 on 06/05/2025 by Yaneli Serrato MD at [facility] [employer] [id number] 02/02/2028 [id number] 00 22UX / [id number] / [id number] Stent Cor [place] 2.75 X 30rx Drg Elut - [id number] Implanted:Qty: 1 on 06/05/2025 at [facility] [employer] [id number] 11/11/2027 [id number] 75 30UX / [id number] / [id number] Stent Cor [place] 3.00 X 12rx Drg Elut - [id number] 001 Implanted:Qty: 1 on 06/05/2025 by Yaneli Serrato MD at [facility] [employer] [id number] 06/21/2026 [id number] 00 12UX / [id number] / [id number] Stent Cor [place] 4.00 X 22rx Drg Elut - [id number] 001 Implanted:Qty: 1 on 06/05/2025 by Yaneli Serrato MD at [facility] [employer] [id number] 10/08/2027 [id number] 00 22UX / [id number] / [id number] Stent Cor [place] 3.00 X 30rx Drg Elut - [id number] Implanted:Qty: 1 on 06/09/2025 by Yaneli Serrato MD at [facility] N/A: Coronary [employer] [id number] 05/06/2026 [id number] 30UX / [id number] / [id number] Stent Cor [place]ust[place] 3.50 X 15rx Drg Elut - [id number] Implanted:Qty: 1 on 06/09/2025 by Yaneli Serrato MD at [facility] N/A: Coronary [employer] [id number] 02/03/2028 [id number] 15UX / [id number] 1 / [id number] Stent Cor [place] 2.25 X 12rx Drg Elut - [id number] Implanted:Qty: 1 on 06/09/2025 by Yaneli Serrato MD at [facility] N/A: Coronary [employer] [id number] 04/27/2026 [id number] 12UX / [id number] / [id number] Stent Cor [place] 2.75 X 22rx Drg Elut - [id number] 001 Implanted:Qty: 1 on 06/09/2025 by Yaneli Serrato MD at [facility] N/A: Coronary [employer] [id number] 07/01/2027 [id number] 22UX / [id number] / [id number] Procedures Procedure Name Priority Date/Time Associated Diagnosis Comments EKG 12-LEAD Routine 06/11/2025 11:17 AM CDT Triple vessel coronary artery disease PTT Timed 06/11/2025 4:49 AM CDT PT-INR Routine 06/11/2025 4:49 AM CDT CBC W AUTO DIFFERENTIAL AM Draw 06/11/2025 4:49 AM CDT MAGNESIUM BLOOD AM Draw 06/11/2025 4:49 AM CDT RENAL FUNCTION PANEL AM Draw 06/11/2025 4:49 AM CDT PTT Timed 06/10/2025 4:17 AM CDT PT-INR Routine 06/10/2025 4:17 AM CDT CBC W AUTO DIFFERENTIAL AM Draw 06/10/2025 4:17 AM CDT MAGNESIUM BLOOD AM Draw 06/10/2025 4:17 AM CDT RENAL FUNCTION PANEL AM Draw 06/10/2025 4:17 AM CDT CCL CORONARY STENT Routine 06/09/2025 10 :31 AM CDT Triple vessel coronary artery disease CCL CORONARY IVUS Routine 06/09/2025 10: 31 AM CDT Triple vessel coronary artery disease CCL LEFT HEART CATH Routine 06/09/2025 1 0:31 AM CDT Triple vessel coronary artery disease ACT LR - POCT ([facility]) Routine 06/09/2025 10:31 AM CDT ACT LR - POCT ([facility]) Routine 06/09/2025 10:02 AM CDT ACT LR - POCT ([facility]) Routine 06/09/2025 9:02 AM CDT ACT LR - POCT ([facility]) Routine 06/09/2025 8:16 AM CDT TROPONIN-I HIGH SENSITIVE Routine 06/09/2025 5:42 AM CDT Triple vessel coronary artery disease PTT Timed 06/09/2025 5:42 AM CDT PT-INR Routine 06/09/2025 5:42 AM CDT CBC W AUTO DIFFERENTIAL AM Draw 06/09/2025 5:42 AM CDT MAGNESIUM BLOOD AM Draw 06/09/2025 5:42 AM CDT RENAL FUNCTION PANEL AM Draw 06/09/2025 5:42 AM CDT EKG 12-LEAD Routine 06/09/2025 2:26 AM CDT Triple vessel coronary artery disease TROPONIN-I HIGH SENSITIVE Routine 06/08/2025 11:52 PM CDT Triple vessel coronary artery disease BASIC METABOLIC PANEL (CALCIUM TOTAL) AM Draw 06/08/2025 8:28 PM CDT TROPONIN-I HIGH SENSITIVE Routine 06/08/2025 8:28 PM CDT Triple vessel coronary artery disease TROPONIN-I HIGH SENSITIVE Routine 06/08/2025 11:41 AM CDT Triple vessel coronary artery disease PTT Routine 06/08/2025 11:41 AM CDT EKG 12-LEAD STAT 06/08/2025 8:54 AM CDT Triple vessel coronary artery disease TROPONIN-I HIGH SENSITIVE REFLEX 1HOUR Timed 06/08/2025 6:[address] ANGIO AORTA FOR DISSECTION STAT 06/08/2025 5:48 AM CDT Chest pain, unspecified type EKG 12-LEAD Routine 06/08/2025 3:14 AM CDT Chest pain, unspecified type TROPONIN-I HIGH SENSITIVE BASELINE + 1HR STAT 06/08/2025 1:49 AM CDT PTT Routine 06/08/2025 1:49 AM CDT PT-INR Routine 06/08/2025 1:49 AM CDT EKG 12-LEAD STAT 06/08/2025 1:17 AM CDT Chest pain, unspecified type TROPONIN-I HIGH SENSITIVE STAT 06/08/2025 12:09 AM CDT MAGNESIUM BLOOD AM Draw 06/08/2025 12:09 AM CDT RENAL FUNCTION PANEL AM Draw 06/08/2025 12:09 AM CDT PTT Timed 06/08/2025 12:08 AM CDT PT-INR Routine 06/08/2025 12:08 AM CDT CBC W AUTO DIFFERENTIAL AM Draw 06/08/2025 12:08 AM CDT EKG 12-LEAD STAT 06/07/2025 11:16 PM CDT Triple vessel coronary artery disease EKG 12-LEAD Routine 06/07/2025 9:45 PM CDT Chest pain, unspecified type TROPONIN-I HIGH SENSITIVE STAT 06/07/2025 8:47 PM CDT OT EVAL AND TREAT Routine 06/07/2025 8:3 6 AM CDT PTT Timed 06/07/2025 7:42 AM CDT PT-INR Routine 06/07/2025 7:42 AM CDT CBC W AUTO DIFFERENTIAL AM Draw 06/07/2025 7:42 AM CDT MAGNESIUM BLOOD AM Draw 06/07/2025 7:42 AM CDT RENAL FUNCTION PANEL AM Draw 06/07/2025 7:42 AM CDT PTT Timed 06/06/2025 10:07 PM CDT PTT Timed 06/06/2025 3:46 PM CDT EXTUBATION Routine 06/06/2025 10:08 AM CDT PTT Timed 06/06/2025 9:01 AM CDT XR CHEST 1VW STAT 06/06/2025 8:55 AM CDT Endotracheally intubated BLOOD GASES ART + COOX PANEL Routine 06/06/2025 4:08 AM CDT Triple vessel coronary artery disease PTT Timed 06/06/2025 4:08 AM CDT PT-INR Routine 06/06/2025 4:08 AM CDT CBC W AUTO DIFFERENTIAL AM Draw 06/06/2025 4:08 AM CDT MAGNESIUM BLOOD AM Draw 06/06/2025 4:08 AM CDT RENAL FUNCTION PANEL AM Draw 06/06/2025 4:08 AM CDT PTT Timed 06/06/2025 12:56 AM CDT XR ABDOMEN KUB PORTABLE STAT 06/05/2025 8:41 PM CDT Endotracheally intubated BLOOD GASES ART + COOX PANEL Routine 06/05/2025 5:47 PM CDT XR CHEST 1VW PORTABLE STAT 06/05/2025 3:47 PM CDT Endotracheally intubated XR CHEST 1VW PORTABLE STAT 06/05/2025 3:02 PM CDT Triple vessel coronary artery disease EKG 12-LEAD Routine 06/05/2025 2:18 PM CDT Triple vessel coronary artery disease ACT LR - POCT ([facility]) Routine 06/05/2025 1:52 PM CDT CCL CORONARY IVUS Routine 06/05/2025 1:3 4 PM CDT Triple vessel coronary artery disease CCL PERCUTANEOUS CORONARY INTERVENTION Routine 06/05/2025 1:34 PM CDT Triple vessel coronary artery disease ACT LR - POCT ([facility]) Routine 06/05/2025 12:26 PM CDT ACT LR - POCT ([facility]) Routine 06/05/2025 11:46 AM CDT ACT LR - POCT ([facility]) Routine 06/05/2025 11:09 AM CDT ACT LR - POCT ([facility]) Routine 06/05/2025 11:01 AM CDT PTT Timed 06/05/2025 6:49 AM CDT PT-INR Routine 06/05/2025 6:49 AM CDT CBC W AUTO DIFFERENTIAL AM Draw 06/05/2025 6:49 AM CDT MAGNESIUM BLOOD AM Draw 06/05/2025 6:49 AM CDT RENAL FUNCTION PANEL AM Draw 06/05/2025 6:49 AM CDT BLOOD TYPE VERIFICATION Routine 06/04/2025 7:46 PM CDT TYPE + SCREEN PANEL Routine 06/04/2025 7 :25 PM CDT PTT Timed 06/04/2025 4:24 AM CDT PT-INR Routine 06/04/2025 4:24 AM CDT CBC W AUTO DIFFERENTIAL AM Draw 06/04/2025 4:24 AM CDT MAGNESIUM BLOOD AM Draw 06/04/2025 4:24 AM CDT RENAL FUNCTION PANEL AM Draw 06/04/2025 4:24 AM CDT PTT AM Draw 06/03/2025 5:42 AM CDT PT-INR Routine 06/03/2025 5:42 AM CDT MAGNESIUM BLOOD AM Draw 06/03/2025 5:42 AM CDT RENAL FUNCTION PANEL AM Draw 06/03/2025 5:42 AM CDT CBC W AUTO DIFFERENTIAL AM Draw 06/03/2025 5:41 AM CDT PTT Timed 06/02/2025 4:02 AM CDT PT-INR Routine 06/02/2025 4:02 AM CDT CBC W AUTO DIFFERENTIAL AM Draw 06/02/2025 4:02 AM CDT MAGNESIUM BLOOD AM Draw 06/02/2025 4:02 AM CDT RENAL FUNCTION PANEL AM Draw 06/02/2025 4:02 AM CDT PTT Timed 06/01/2025 9:13 PM CDT ECHO COMPLETE W CONTRAST Routine 06/01/2025 3:02 PM CDT Triple vessel coronary artery disease PTT STAT 06/01/2025 8:09 AM CDT HIV-1 HIV-2 ANTIBODY + HIV P24 AG PANEL AM Draw 06/01/2025 1:09 AM CDT PT-INR Routine 06/01/2025 1:09 AM CDT CBC W AUTO DIFFERENTIAL AM Draw 06/01/2025 1:09 AM CDT MAGNESIUM BLOOD AM Draw 06/01/2025 1:09 AM CDT RENAL FUNCTION PANEL AM Draw 06/01/2025 1:09 AM CDT PTT STAT 06/01/2025 1:09 AM CDT PTT Routine 05/31/2025 12:50 PM CDT PTT Routine 05/31/2025 5:06 AM CDT PT-INR Routine 05/31/2025 5:06 AM CDT CBC W AUTO DIFFERENTIAL AM Draw 05/31/2025 5:06 AM CDT MAGNESIUM BLOOD AM Draw 05/31/2025 5:06 AM CDT RENAL FUNCTION PANEL AM Draw 05/31/2025 5:06 AM CDT PTT Timed 05/30/2025 9:26 PM CDT VAS CAROTID DUPLEX BILATERAL Routine 05/30/2025 2:15 PM CDT Triple vessel coronary artery disease VAS BILATERAL VENOUS MAPPING Routine 05/30/2025 2:14 PM CDT Triple vessel coronary artery disease CT CHEST WO CONTRAST Routine 05/30/2025 1:43 PM CDT Triple vessel coronary artery disease PTT Routine 05/30/2025 8:44 AM CDT PT-INR Routine 05/30/2025 8:44 AM CDT TROPONIN-I HIGH SENSITIVE REFLEX 1HOUR Timed 05/30/2025 2:13 AM CDT T4 FREE AM Draw 05/30/2025 12:26 AM CDT TSH REFLEX FREE T4 AM Draw 05/30/2025 12 :26 AM CDT LIPID PROFILE AM Draw 05/30/2025 12:26 AM CDT HEMOGLOBIN A1C AM Draw 05/30/2025 12:26 AM CDT PHOSPHORUS BLOOD STAT 05/30/2025 12:2 6 AM CDT MAGNESIUM BLOOD STAT 05/30/2025 12:26 AM CDT TROPONIN-I HIGH SENSITIVE BASELINE + 1HR STAT 05/30/2025 12:26 AM CDT PT-INR STAT 05/30/2025 12:26 AM CDT COMPREHENSIVE METABOLIC PANEL STAT 05/30/2025 12:26 AM CDT CBC W AUTO DIFFERENTIAL STAT 05/30/2025 12:26 AM CDT from Last 3 Months Results * EKG 12-Lead (06/11/2025 11:17 AM CDT) Only the most recent of8 resultswithin the time period is included. 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 APTT 32.4 23.0 - 38.4 Seconds 06/11/2025 5:13 AM CDT [facility] Comment:Suggested therapeuti c range for full dose I.V. unfractionated heparin therapy for venous thromboembolism is 71 to 109 seconds. Blood BLOOD SPECIMEN / Unknown Venipuncture / Unknown 06/11/2025 4:49 AM CDT 06/11/2025 4:55 AM CDT Jt Payton MD LAB - COAGULATION ORDERABLES Fin al Result Performing Organization Address [facility] de Phone Number [address] [address], [facility] [phone] * (ABNORMAL) PT-INR (06/11/2025 4:49 AM CDT) Only the most recent of15 resultswithin the time period is included. PT 15.2(H) 12.1 - 14.8 Seconds 06/11/2025 5:13 AM CDT [facility] INR 1.2 See Comment 06/11/2025 5:13 AM CDT [facility] Comment:The suggested therap eutic range for standard coumadin (warfarin) therapy is an INR of 2.0-3.0. For high-risk patients (Mechanical Mitral Valve Prosthesis, etc.), the suggested prophylactic therapeutic range is an INR of 2.5-3.5. Blood BLOOD SPECIMEN / Unknown Venipuncture / Unknown 06/11/2025 4:49 AM CDT 06/11/2025 4:55 AM CDT Jt Payton MD LAB - COAGULATION ORDERABLES Fin al Result Performing Organization Address [facility] de Phone Number [facility] [address] [place] [address], [facility] [phone] * (ABNORMAL) CBC W AUTO DIFFERENTIAL (06/11/2025 4:49 AM CDT) Only the most recent of13 resultswithin the time period is included. WBC 9.7 4.0 - 10.7 x10E9/L 06/11/2025 5:11 AM [facility] RBC Count 4.33 4.30 - 5.80 x10E12/L 06/11/2025 5:11 AM [facility] Hemoglobin 12.1(L) 13.3 - 17.5 g/dL 06/11/2025 5:11 AM [facility] Hematocrit 37.9(L) 38.7 - 51.1 % 06/11/2025 5:11 AM [facility] MCV 87.5 80.0 - 98.0 fL 06/11/2025 5:11 AM [facility] MCH 27.9 26.7 - 33.6 pg 06/11/2025 5:11 AM [facility] MCHC 31.9 31.7 - 36.3 g/dL 06/11/2025 5:11 AM [facility] RDW-CV 14.1 11.3 - 14.8 % 06/11/2025 5:11 AM [facility] Platelet Count 105(L) 150 - 420 x10E9/L 06/11/2025 5:11 AM [facility] MPV 11.7(H) 7.8 - 11.4 fL 06/11/2025 5:11 AM [facility] Neutrophil % 69.3 41.0 - 74.0 % 06/11/2025 5:11 AM [facility] Lymphocyte % 18.6 17.0 - 47.0 % 06/11/2025 5:11 AM [facility] Monocyte % 8.8 3.0 - 11.0 % 06/11/2025 5:11 AM [facility] Eosinophil % 2.4 0.0 - 7.0 % 06/11/2025 5:11 AM [facility] Basophil % 0.5 0.0 - 1.6 % 06/11/2025 5:11 AM [facility] Immature Granulocytes % 0.4 0.0 - 1.0 % 06/11/2025 5:11 AM [facility] Neutrophil Absolute 6.71 1.60 - 7.50 x10E9/L 06/11/2025 5:11 AM [facility] Lymphocyte Absolute 1.80 1.00 - 4.40 x10E9/L 06/11/2025 5:11 AM [facility] Monocyte Absolute 0.85 0.15 - 1.00 x10E9/L 06/11/2025 5:11 AM [facility] Eosinophil Absolute 0.23 0.00 - 0.60 x10E9/L 06/11/2025 5:11 AM [facility] Basophil Absolute 0.05 0.00 - 0.13 x10E9/L 06/11/2025 5:11 AM [facility] Blood BLOOD SPECIMEN / Unknown Venipuncture / Unknown 06/11/2025 4:49 AM CDT 06/11/2025 4:55 AM CDT Jt Payton MD LAB - HEMATOLOGY ORDERABLES Trena blancas Result [address] [address], [facility] [phone] * (ABNORMAL) RENAL FUNCTION PANEL (06/11/2025 4:49 AM CDT) Only the most recent of12 resultswithin the time period is included. BUN 10 7 - 26 mg/dL 06/11/2025 5:19 AM [facility] Creatinine 0.62(L) 0.71 - 1.16 mg/dL 06/11/2025 5:19 AM [facility] Sodium 139 136 - 145 mmol/L 06/11/2025 5:19 AM [facility] Potassium 3.9 3.5 - 4.5 mmol/L 06/11/2025 5:19 AM [facility] Chloride 105 98 - 107 mmol/L 06/11/2025 5:19 AM [facility] CO2 25 22 - 29 mmol/L 06/11/2025 5:19 AM [facility] Glucose 100(H) 70 - 99 mg/dL 06/11/2025 5:19 AM [facility] Albumin 3.0(L) 3.4 - 5.0 g/dL 06/11/2025 5:19 AM [facility] Calcium 8.3(L) 8.4 - 10.2 mg/dL 06/11/2025 5:19 AM [facility] Phosphorus 2.9 2.8 - 5.1 mg/dL 06/11/2025 5:19 AM [facility] Anion Gap 9 6 - 16 06/11/2025 5:19 AM [facility] BUN/Creatinine Ratio 16 7 - 23 06/11/2025 5:19 AM [facility] Osmolality Calculated 287 275 - 295 mOsm/kg 06/11/2025 5:19 AM [facility] eGFR by CKD-EPI >90 >=90 mL/min/1.7 3 m2 06/11/2025 5:19 AM [facility] Comment:Estimated Glomerular Filtration Rate (eGFR) calculated using the CKD-EPI Creatinine Equation (2020), per the [employer] and [employer] [place] [employer] recommendations. Blood BLOOD SPECIMEN / Unknown Venipuncture / Unknown 06/11/2025 4:49 AM CDT 06/11/2025 4:56 AM CDT Jt Payton MD LAB - CHEMISTRY ORDERABLES Final Result [facility] [address] [place] [id number], [facility] [phone] * MAGNESIUM BLOOD (06/11/2025 4:49 AM CDT) Only the most recent of13 resultswithin the time period is included. Magnesium 1.9 1.6 - 2.6 mg/dL 06/11/2025 5:19 AM CDT [facility] Blood BLOOD SPECIMEN / Unknown Venipuncture / Unknown 06/11/2025 4:49 AM CDT 06/11/2025 4:56 AM CDT Jt Payton MD LAB - CHEMISTRY ORDERABLES Final Result [facility] [address] [place] [address], [facility] [phone] * CCL LEFT HEART CATH, CCL CORONARY IVUS, CCL CORONARY STENT (06/09/2025 10:31 AM CDT) Only the most recent of2 resultswithin the time period is included. Anatomical Region Laterality Modality X-Ray Angiograph y Narrative 06/10/2025 10:35 AM CDT 80% proximal/mid RCA stenosis s/p successful IVUS guided implant of overlapping 3 x 30, 3.5 x 15 mm Resolute Agustín FLOYD; 0% residual stenosis TIMI3 flow. 100% in stent thrombosis of mid LCX stent, s/p successful recanalization and impalnt of 2.75 x 22, 2.25 x 12 mm Resolute [place] FLOYD; 0% residual TIMI3 flow. Complicated by distal dissection, non flow-limiting. Right radial artery access, hemostasis by TR band. Reason for Procedure 74y/o male w/ PMH of HTN, HLD, TUD, thrombocytopenia, psoriatic arthritis who presented as a transfer from OSH for CABG vs. High-risk PCI eval. On 06/05, pt underwent PCI of ostial left main to prox LAD, PCI of prox/mid Lcx c/b distal edge dissection with ARMAAN II flow. He is presenting today for PCI of RCA. Procedure Details Estimated Blood Loss: 20 mL Procedure Details and Comments: JR4 guide RCA PCI with cutting balloon EBU guide LCX had subacute in stent thrombosis Crossed with Stave Log Ripsaw Operator 200 PTCA 1 stent distal to existing stents Still hazy within prior stent Added 1 more stent to mid LCX Wire out shot showed still dissection distal to the stents but now TIMI3 flow. Coronary Findings Diagnostic Dominance: Right Left Main: Previously placed Ost LM to Prox LAD drug eluting stent is widely patent. Lesion length: 60 mm. The lesion is type C. The lesion was previously treated using angioplasty. Angioplasty was performed using a scoring balloon. Left Anterior Descending: The vessel is moderate in size. There is moderate diffuse disease throughout the vessel. Left Circumflex: The vessel is moderate in size. There is mild diffuse disease throughout the vessel. Previously placed Ost Cx to Prox Cx drug eluting stent is widely patent. Lesion length: 20 mm. The lesion is type C. The lesion was previously treated using angioplasty. Prox Cx to Mid Cx lesion is 100% stenosed. Culprit lesion. ARMAAN flow is 0. Lesion length: 30 mm. The lesion is type C. The lesion was previously treated. Right Coronary Artery: The vessel was visualized by selective angiography and is moderate in size. There is mild diffuse disease throughout the vessel. Ost RCA to Mid RCA lesion is 80% stenosed. Not the culprit lesion. ARMAAN flow is 3. Lesion length: 45 mm. The lesion is type C. Ultrasound (IVUS) was performed. Intervention Prox Cx to Mid Cx lesion: Stent: A Stent Cor Agustín 2.25 X 12Rx Drg Elut drug- eluting stent was successfully placed. Stent: A Stent Cor Agustín 2.75 X 22Rx Drg Elut drug-eluting stent was successfully placed. Post-Intervention Lesion Assessment: The intervention was successful. The guidewire crossed the lesion. Device was deployed. Post-intervention ARMAAN flow is 3. Lesion had 30 mm of its length treated. At this lesion, a dissection occurred. There is a 0% residual stenosis post intervention. Ost RCA to Mid RCA lesion: Stent: A Stent Cor [place] 3.00 X 30Rx Drg Elut drug- eluting stent was successfully placed. Stent: A Stent Cor [place] 3.50 X 15Rx Drg Elut drug-eluting stent was successfully placed. Post-Intervention Lesion Assessment: The intervention was successful. The guidewire crossed the lesion. Device was deployed. Post-intervention ARMAAN flow is 3. Lesion had 45 mm of its length treated. There were no complications. Post-PCI ultrasound (IVUS) was performed. There is a 0% residual stenosis post intervention. Recommendations - Follow maximal guideline directed medical therapy for acute coronary syndrome. - Recommend dual anti platelet therapy for at least 12 months. - Recommend high dose statin therapy and aspirin 81 mg by mouth daily indefinitely. - Consult cardiac rehab. - Plan for lifestyle intervention with diet, exercise, and weight loss. - Aggrestat drip for 18 hours - Nitrates (can change to PO dosing) for chest pain - Beta cindy and ACEi/ARB - Follow up with Dr. Thomas in [facility]. us Clyde Mann MD CV CARDIAC CATH BLANE RAZA Fi nal Result * ACT LR - POCT ([facility]) (06/09/2025 10:31 AM CDT) Only the most recent of9 resultswithin the time period is included. ACT LR 334 See result comments sec 06/09/2025 3:39 PM CDT [facility] Blood BLOOD SPECIMEN / Unknown 06/09/2025 10:31 AM CDT 06/09/2025 3:39 PM CDT Narrative [facility] - 06/09/2025 3:39 PM CDT ACT-LR Therapeutics ranges are: Cardiac rangelands conservation laborer = 200-300 seconds Sheath pull = ACT less than 170 seconds EPS lab = 200-240 seconds Sheath pull = ACT less than 140 seconds Radiology : CT/Angio lab = 200-300 seconds Sheath pull = ACT less than 200 seconds Expected range of normal volunteers: ACT-LR = 113-149 seconds Expected range of a Non-heparin patients: ACT-LR = 89-169 seconds From established ranges from the company manual Maynor Varela MD LAB - COAGULATION ORDERABLES Final Result [address] [address], [facility] [phone] * (ABNORMAL) TROPONIN-I HIGH SENSITIVE (06/09/2025 5:42 AM CDT) Only the most recent of6 resultswithin the time period is included. Pathologist [facility] Troponin I High Sensitive 24,521(HH) <=35 ng/L 06/09/2025 7:01 AM CDT [facility] Blood BLOOD SPECIMEN / Unknown Venipuncture / Unknown 06/09/2025 5:42 AM CDT 06/09/2025 5:55 AM CDT us Maynor Varela MD LAB - CHEMISTRY ORDERABLES F inal Result [facility] [address] [place] [address], [facility] [phone] * (ABNORMAL) BASIC METABOLIC PANEL (CALCIUM TOTAL) (06/08/2025 8:28 PM CDT) BUN 11 7 - 26 mg/dL 06/08/2025 9:20 PM [facility] Creatinine 0.64(L) 0.71 - 1.16 mg/dL 06/08/2025 9:20 PM [facility] Sodium 140 136 - 145 mmol/L 06/08/2025 9:20 PM [facility] Potassium 3.7 3.5 - 4.5 mmol/L 06/08/2025 9:20 PM [facility] Chloride 106 98 - 107 mmol/L 06/08/2025 9:20 PM [facility] CO2 26 22 - 29 mmol/L 06/08/2025 9:20 PM [facility] Glucose 144(H) 70 - 99 mg/dL 06/08/2025 9:20 PM [facility] Calcium 8.3(L) 8.4 - 10.2 mg/dL 06/08/2025 9:20 PM [facility] Anion Gap 8 6 - 16 06/08/2025 9:20 PM [facility] BUN/Creatinine Ratio 17 7 - 23 06/08/2025 9:20 PM [facility] Osmolality Calculated 292 275 - 295 mOsm/kg 06/08/2025 9:20 PM [facility] eGFR by CKD-EPI >90 >=90 mL/min/1.7 3 m2 06/08/2025 9:20 PM [facility] Comment:Estimated Glomerular Filtration Rate (eGFR) calculated using the CKD-EPI Creatinine Equation (2020), per the National Kidney Foundation and [place] [employer] Neph[employer] recommendations. Blood BLOOD SPECIMEN / Unknown Venipuncture / Unknown 06/08/2025 8:28 PM CDT 06/08/2025 8:44 PM CDT Maynor Varela MD LAB - CHEMISTRY ORDERABLES F inal Result Performing Organization Address [facility] Co de Phone Number [address] [address], [facility] [phone] * (ABNORMAL) TROPONIN-I HIGH SENSITIVE REFLEX 1HOUR (06/08/2025 6:09 AM CDT) Only the most recent of2 resultswithin the time period is included. Troponin I High Sensitive 11,018(HH ) <=35 ng/L 06/08/2025 8:08 AM CDT [facility] Delta Troponin I HS 06/08/2025 8:08 AM CDT [facility] Comment:Delta value intentio garcia not calculated. Baseline to 1 hour specimen collection interval exceeded. Blood BLOOD SPECIMEN / Unknown Lab Venipuncture / Unknown 06/08/2025 6:09 AM CDT 06/08/2025 6:46 AM CDT Maynor Varela MD LAB - CHEMISTRY ORDERABLES F inal Result Performing Organization Address [facility] Co de Phone Number [address] [address], [facility] [phone] * CT Angio Aorta for Dissection (06/08/2025 5:48 AM CDT) Anatomical Region Laterality Modality Abdomen Computed Tomogra phy 06/08/2025 6:29 AM CDT Impressions 06/08/2025 8:11 AM CDT Impression: 1.No aortic dissection, intramural hematoma, penetrating atherosclerotic ulcer, or aneurysm. 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 2.No acute process identified in the chest, abdomen, or pelvis. > Dictated by Benoit Teixeira MD, (Mold Dumper). > Dictated by Benoit Teixeira MD 06/08/2025 6:29 AM > Dictated by Mold Dumper I, Catherine Carter MD have personally reviewed and interpreted this examination/study. > Interpreting Provider: Catherine Carter MD on 06/08/2025 8:11 AM Narrative 06/08/2025 8:11 AM CDT PROCEDURE: CT ANGIO AORTA FOR DISSECTION, DATE/TIME OF EXAM: 06/08/2025 5:48 AM, LOCATION [facility] INDICATION: R07.9: Chest pain, unspecified type ADDITIONAL CLINICAL INFORMATION: Ordering Provider Reason For Exam: r/o aortic dissection COMPARISON: CT chest 05/30/2025. TECHNIQUE: CT of the chest, abdomen, and pelvis was performed prior to and following the uneventful administration of 100 mL of Isovue 370 intravenous contrast according to an angiogram dissection protocol. Three dimensional postprocessing was performed by the technologist and sent to the workstation for review. Findings: Thoracic aorta: No aortic dissection, intramural hematoma, penetrating atherosclerotic ulcer, or aneurysm. Atherosclerotic changes. Thoracic aortic branches: Subclavian arteries: Patent without significant focal stenosis. Brachiocephalic artery: Atherosclerotic but patent without significant focal stenosis. Pulmonary artery: Normal. Coronary arteries: Atherosclerotic. Abdominal aorta: No intramural hematoma, penetrating atherosclerotic ulcer. 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 Infrarenal abdominal aorta measuring 3 cm. Abdominal aortic branches: Celiac axis: Moderate stenosis at the celiac axis. Superior mesenteric artery: Atherosclerotic but patent without significant focal stenosis. Inferior mesenteric artery: Patent without significant focal stenosis. Right renal artery: Atherosclerotic but patent without significant focal stenosis. Left renal artery: Atherosclerotic but patent without significant focal stenosis. Right common iliac artery: Atherosclerotic but patent without significant focal stenosis. Right internal iliac artery: Atherosclerotic but patent without significant focal stenosis. Right external iliac artery: Atherosclerotic but patent without significant focal stenosis. Left common iliac artery: Atherosclerotic but patent without significant focal stenosis. Left internal iliac artery: Atherosclerotic but patent without significant focal stenosis. Left external iliac artery: Atherosclerotic but patent without significant focal stenosis. Chest: Lower Neck and Axillae: Normal. Lungs: Mild bilateral dependent atelectasis is present. No suspicious pulmonary nodules are identified. No pleural fluid or pneumothorax is present. Heart and Pericardium: The cardiac chambers are normal in size. No pericardial fluid or thickening is present. Mediastinum and Kacey: No mediastinal mass is present. Mildly prominent subcentimeter mediastinal lymph nodes are seen; however, there are no enlarged lymph nodes are present. Abdomen/pelvis: Liver: Normal. Gallbladder and Bile Ducts: Normal. Spleen: Normal. Pancreas: Normal. Adrenals: Normal. Kidneys: Normal. Gastrointestinal: The stomach and visualized loops of large and small bowel are unremarkable. Normal appendix. Hyperdense findings at the GE junction, likely postsurgical clips. Mesentery/Peritoneum/Retroperitoneum: No free intraperitoneal air. No free fluid in the abdomen or pelvis. Bladder: Normal. Reproductive Organs: The prostate is normal. Bones: Bone windows demonstrate no suspicious lytic or blastic lesions. The visible osseous structures are intact. Degenerative changes are seen in the spine. Soft tissues: Small fat-containing right inguinal hernia. Procedure Note Catherine Carter MD - 06/08/2025 PROCEDURE: CT ANGIO AORTA FOR DISSECTION, DATE/TIME OF EXAM: 06/08/2025 5:48 AM, LOCATION [facility] INDICATION: R07.9: Chest pain, unspecified type ADDITIONAL CLINICAL INFORMATION: Ordering Provider Reason For Exam: r/o aortic dissection COMPARISON: CT chest 05/30/2025. TECHNIQUE: CT of the chest, abdomen, and pelvis was performed prior toand following the uneventful administration of 100 mL of Isovue 370intravenous contrast according to an angiogram dissection protocol. Threedimensional postprocessing was performed by the technologist and sent to the workstation for review. Findings: Thoracic aorta: No aortic dissection, intramural hematoma, penetrating atherosclerotic ulcer, or aneurysm. Atherosclerotic changes. Thoracic aortic branches: Subclavian arteries: Patent without significant focal stenosis. Brachiocephalic artery: Atherosclerotic but patent without significant focal stenosis. Pulmonary artery: Normal. Coronary arteries: Atherosclerotic. Abdominal aorta: No intramural hematoma, penetrating atheroscleroticulcer. 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 Infrarenal abdominal aortameasuring 3 cm. Abdominal aortic branches: Celiac axis: Moderate stenosis at the celiac axis. Superior mesenteric artery: Atherosclerotic but patent withoutsignificant focal stenosis. Inferior mesenteric artery: Patent without significant focal stenosis. Right renal artery: Atherosclerotic but patent without significant focal stenosis. Left renal artery: Atherosclerotic but patent without significant focal stenosis. Right common iliac artery: Atherosclerotic but patent withoutsignificant focal stenosis. Right internal iliac artery: Atherosclerotic but patent withoutsignificant focal stenosis. Right external iliac artery: Atherosclerotic but patent withoutsignificant focal stenosis. Left common iliac artery: Atherosclerotic but patent without significant focal stenosis. Left internal iliac artery: Atherosclerotic but patent withoutsignificant focal stenosis. Left external iliac artery: Atherosclerotic but patent withoutsignificant focal stenosis. Chest: Lower Neck and Axillae: Normal. Lungs: Mild bilateral dependent atelectasis is present. No suspicious pulmonary nodules are identified. No pleural fluid or pneumothorax is present. Heart and Pericardium: The cardiac chambers are normal in size. No pericardial fluid orthickening is present. Mediastinum and Kacey: No mediastinal mass is present. Mildly prominent subcentimetermediastinal lymph nodes are seen; however, there are no enlarged lymph nodes are present. Abdomen/pelvis: Liver: Normal. Gallbladder and Bile Ducts: Normal. Spleen: Normal. Pancreas: Normal. Adrenals: Normal. Kidneys: Normal. Gastrointestinal: The stomach and visualized loops of large and small bowel areunremarkable. Normal appendix. Hyperdense findings at the GE junction, likely postsurgical clips. Mesentery/Peritoneum/Retroperitoneum: No free intraperitoneal air. No free fluid in the abdomen or pelvis. Bladder: Normal. Reproductive Organs: The prostate is normal. Bones: Bone windows demonstrate no suspicious lytic or blastic lesions. The visible osseous structures are intact. Degenerative changes are seen inthe spine. Soft tissues: Small fat-containing right inguinal hernia. Impression: 1.No aortic dissection, intramural hematoma, penetrating atherosclerotic ulcer, or aneurysm. There is a short segment chronic dissection flap inthe infrarenal abdominal aorta. 2.No acute process identified in the chest, abdomen, or pelvis. > Dictated by Benoit Teixeira MD, (Mold Dumper). > Dictated by Benoit Teixeira MD 06/08/2025 6:29 AM > Dictated by Mold Dumper I, Catherine Carter MD have personally reviewed and interpreted this examination/study. > Interpreting Provider: Catherine Carter MD on 58:11 AM Maynor Varela MD CT ORDERABLES Final Result * (ABNORMAL) TROPONIN-I HIGH SENSITIVE BASELINE + 1HR (06/08/2025 1:49 AM CDT) Only the most recent of2 resultswithin the time period is included. Troponin I High Sensitive 9,895(HH) <=35 ng/L 06/08/2025 3:19 AM CDT [facility] Blood BLOOD SPECIMEN / Unknown Venipuncture / Unknown 06/08/2025 1:49 AM CDT 06/08/2025 2:08 AM CDT us Maynor Varela MD LAB - CHEMISTRY ORDERABLES F inal Result [address] [address], [facility] [phone] * XR Chest 1Vw (06/06/2025 8:55 AM CDT) Anatomical Region Laterality Modality Chest Digital Radiogra phy 06/06/2025 10:0 9 AM CDT Narrative 06/06/2025 10:27 AM CDT PROCEDURE: XR CHEST 1VW, DATE/TIME OF EXAM: 06/06/2025 8:55 AM, LOCATION [facility] INDICATION: Z97.8: Endotracheally intubated ADDITIONAL CLINICAL INFORMATION: Ordering Provider Reason For Exam: confirm ETT placement COMPARISON: 06/04/2025 TECHNIQUE: Single portable semierect chest radiograph FINDINGS/IMPRESSION: Hardware, tubes, lines, miscellaneous: *Endotracheal tube terminates approximately 3.5 cm above the marina. *The enteric tube descends below the diaphragm interest on the [id number] on this exam. *Surgical clips overlie the midline of the upper abdomen. There is mild left basilar atelectasis; superimposed infection is not excluded. Low lung volumes lead to bronchovascular crowding. No pleural effusion. No pneumothorax. Mediastinal contours and heart size are within normal limits for portable technique. Degenerative changes are present within the spine. This report was dictated by Pascual Hagen M.D. (DR/IR Resident). > Dictated by Pascual Hagen MD 06/06/2025 10:09 AM > Dictated by Mold Dumper Jyoti Hollins MD have personally reviewed and interpreted this examination/study. > Interpreting Provider: Jyoti Ray MD on 06/06/2025 10:27 AM Procedure Note Jyoti Ray MD - 06/06/2025 PROCEDURE: XR CHEST 1VW, DATE/TIME OF EXAM: 06/06/2025 8:55 AM, LOCATION [facility] INDICATION: Z97.8: Endotracheally intubated ADDITIONAL CLINICAL INFORMATION: Ordering Provider Reason For Exam: confirm ETT placement COMPARISON: 06/04/2025 TECHNIQUE: Single portable semierect chest radiograph FINDINGS/IMPRESSION: Hardware, tubes, lines, miscellaneous: *Endotracheal tube terminates approximately 3.5 cm above the marina. *The enteric tube descends below the diaphragm interest on the [id number] on this exam. *Surgical clips overlie the midline of the upper abdomen. There is mild left basilar atelectasis; superimposed infection is not excluded. Low lung volumes lead to bronchovascular crowding. No pleural effusion. No pneumothorax. Mediastinal contours and heart size arewithin normal limits for portable technique. Degenerative changes are present within the spine. This report was dictated by Pascual Hagen M.D. (DR/IR Resident). > Dictated by Pascual Hagen MD 06/06/2025 10:09 AM > Dictated by Mold Dumper Jyoti Hollins MD have personally reviewed and interpreted this examination/study. > Interpreting Provider: Jyoti Ray MD on 06/06/2025 10:27 AM Clyde Mann MD DIAGNOSTIC IMAGING ORDERABLES Final Result * (ABNORMAL) BLOOD GASES ART + COOX PANEL (06/06/2025 4:08 AM CDT) Only the most recent of2 resultswithin the time period is included. pH Arterial 7.52(H) 7.35 - 7.45 pH 06/06/2025 4:39 AM T [facility] pO2 Arterial 131(H) 80 - 100 mmHg 06/06/2025 4:[address] [facility] pCO2 Arterial 37 35 - 45 mmHg 4:39 AM [facility] HCO3 Arterial 30.2(H) 20.0 - 30.0 mmol/L 06/06/2025 4:39 AM [facility] BE Arterial 7.0(H) -2.0 - 2.0 mmol/L 06/06/2025 4:39 AM [facility] Oxyhemoglobin Arterial 97.5 % 06/06/2025 4:39 AM [facility] Dexoyhemoglobin (HHB) % <1.0 % 06/06/2025 4:39 AM [facility] Methemoglobin 1.0 0.0 - 2.0 % 06/06/2025 4:39 AM [facility] Carboxyhemoglobin 1.4 0.0 - 2.0 % 2024 4:39 AM [facility] O2 Content Arterial 20.5 Interpret within clinical context ml/dL 06/06/2025 4:39 AM [facility] Hemoglobin by COOX 14.8 12.0 - 17.6 g/dL 06/06/2025 4:39 AM [facility] O2 Saturation Arterial 100 90 - 100 % 06/06/2025 4:39 AM [facility] FI O2 Arterial 40.0 % 06/06/2025 4:39 AM [facility] Blood, arterial ARTERIAL BLOOD SPECIMEN / Unknown Arterial Puncture / Unknown 06/06/2025 4:08 AM T 06/06/2025 4:30 AM [facility] - 06/06/2025 4:39 AM [facility] Carboxyhemoglobin Normal Concentration: Non-smokers: 0-2%; Smokers: 0-9%; Toxic: >20% us Clyde Mann MD LAB - BLOOD GASES ORDERABLES F inal Result [facility] [address] [place] [address], [facility] [phone] * XR Abdomen Kub Portable (06/05/2025 8:41 PM CDT) Anatomical Region Laterality Modality Abdomen Digital Radiogra phy 06/06/2025 7:36 AM CDT Narrative 06/06/2025 11:35 AM CDT PROCEDURE: XR CHEST 1VW PORTABLE, XR ABDOMEN KUB PORTABLE, DATE/TIME OF EXAM: 06/05/2025 3:59 PM, LOCATION [facility] INDICATION: Z97.8: Endotracheally intubated ADDITIONAL CLINICAL INFORMATION: Ordering Provider Reason For Exam: Repeat placement of ET tube (accession [id number]), verify oral gastric tube placement (accession [id number]) COMPARISON: CT chest 05/30/2025 FINDINGS/IMPRESSION: SINGLE PORTABLE UPRIGHT FRONTAL CHEST RADIOGRAPH 06/15/2025 AT 3:43 PM: Hardware, tubes, lines, miscellaneous: *Endotracheal tube has been retracted and now terminates approximately 1.4 cm above the marina; recommend retraction by 1 cm for optimal positioning. *Surgical clips superimpose the midline upper abdomen. Low lung volumes lead to bronchovascular crowding. There is mild bibasilar atelectasis. There is otherwise no focal consolidation, pleural effusion, or pneumothorax. Aside from atherosclerotic calcifications in the aortic arch, the mediastinal silhouette appears normal for portable technique. Heart size is within normal limits of portable technique. SINGLE FRONTAL SUPINE ABDOMINAL RADIOGRAPH 06/05/2025 06/05/2025: An enteric tube is in place and descends below the diaphragm with side port and tip terminating within the gastric body. Within the limitations of single limited view of the upper abdomen, no dilated loops of bowel are seen. Relative lucency of the left upper quadrant is likely projectional. These findings were discussed in detail with the patient's care provider, Dr. Rosita Benitez by Dr. Pascual Hagen via telephone at 7:43 AM on 06/06/2025 with readback comprehension and verification. > Dictated by Pascual Hagen MD 06/06/2025 7:36 AM > Dictated by Mold Dumper I, Jyoti Ray MD have personally reviewed and interpreted this examination/study. > Interpreting Provider: Jyoti Ray MD on 06/06/2025 11:35 AM Procedure Note Jyoti Ray MD - 06/06/2025 PROCEDURE: XR CHEST 1VW PORTABLE, XR ABDOMEN KUB PORTABLE, DATE/TIME OF EXAM: 06/05/2025 3:59 PM, LOCATION [facility] INDICATION: Z97.8: Endotracheally intubated ADDITIONAL CLINICAL INFORMATION: Ordering Provider Reason For Exam: Repeat placement of ET tube(accession [id number]), verify oral gastric tube placement (accession [id number]) COMPARISON: CT chest 05/30/2025 FINDINGS/IMPRESSION: SINGLE PORTABLE UPRIGHT FRONTAL CHEST RADIOGRAPH 06/15/2025 AT 3:43 PM: Hardware, tubes, lines, miscellaneous: *Endotracheal tube has been retracted and now terminates approximately1.4 cm above the marina; recommend retraction by 1 cm for optimalpositioning. *Surgical clips superimpose the midline upper abdomen. Low lung volumes lead to bronchovascular crowding. There is mildbibasilar atelectasis. There is otherwise no focal consolidation, pleuraleffusion, or pneumothorax. Aside from atherosclerotic calcifications in the aortic arch, the mediastinal silhouette appears normal for portable technique. Heart size is within normal limits of portable technique. SINGLE FRONTAL SUPINE ABDOMINAL RADIOGRAPH 06/05/2025 06/05/2025: An enteric tube is in place and descends below the diaphragm with sideport and tip terminating within the gastric body. Within the limitations of single limited view of the upper abdomen, no dilated loops of bowel are seen. Relative lucency of the left upper quadrant is likelyprojectional. These findings were discussed in detail with the patient's careprovider, Dr. Rosita Benitez by Dr. Pascual Hagen via telephone at 7:43 AM on 06/06/2025 with readback comprehension and verification. > Dictated by Pascual Hagen MD 06/06/2025 7:36 AM > Dictated by Mold Dumper I, Jyoti Ray MD have personally reviewed and interpreted this examination/study. > Interpreting Provider: Jyoti Ray MD on 06/06/2025 11:35 AM us Bentley Ceasar Olsen INSPECTOR PLUG SEAM-PATIENT TRANSPORTATION DRIVER DIAGNOSTIC IMAGING ORDERABLES Final Result * XR Chest 1Vw Portable (06/05/2025 3:47 PM CDT) Only the most recent of2 resultswithin the time period is included. Anatomical Region Laterality Modality Chest Digital Radiogra phy 06/06/2025 7:36 AM CDT Narrative 06/06/2025 11:35 AM CDT PROCEDURE: XR CHEST 1VW PORTABLE, XR ABDOMEN KUB PORTABLE, DATE/TIME OF EXAM: 06/05/2025 3:59 PM, LOCATION [facility] INDICATION: Z97.8: Endotracheally intubated ADDITIONAL CLINICAL INFORMATION: Ordering Provider Reason For Exam: Repeat placement of ET tube (accession [id number]), verify oral gastric tube placement (accession [id number]) COMPARISON: CT chest 05/30/2025 FINDINGS/IMPRESSION: SINGLE PORTABLE UPRIGHT FRONTAL CHEST RADIOGRAPH 06/15/2025 AT 3:43 PM: Hardware, tubes, lines, miscellaneous: *Endotracheal tube has been retracted and now terminates approximately 1.4 cm above the marina; recommend retraction by 1 cm for optimal positioning. *Surgical clips superimpose the midline upper abdomen. Low lung volumes lead to bronchovascular crowding. There is mild bibasilar atelectasis. There is otherwise no focal consolidation, pleural effusion, or pneumothorax. Aside from atherosclerotic calcifications in the aortic arch, the mediastinal silhouette appears normal for portable technique. Heart size is within normal limits of portable technique. SINGLE FRONTAL SUPINE ABDOMINAL RADIOGRAPH 06/05/2025 06/05/2025: An enteric tube is in place and descends below the diaphragm with side port and tip terminating within the gastric body. Within the limitations of single limited view of the upper abdomen, no dilated loops of bowel are seen. Relative lucency of the left upper quadrant is likely projectional. These findings were discussed in detail with the patient's care provider, Dr. Rosita Benitez by Dr. Pascual Hagen via telephone at 7:43 AM on 06/06/2025 with readback comprehension and verification. > Dictated by Pascual Hagen MD 06/06/2025 7:36 AM > Dictated by Mold Dumper I, Jyoti Ray MD have personally reviewed and interpreted this examination/study. > Interpreting Provider: Jyoti Ray MD on 06/06/2025 11:35 AM Procedure Note Jyoti Ray MD - 06/06/2025 PROCEDURE: XR CHEST 1VW PORTABLE, XR ABDOMEN KUB PORTABLE, DATE/TIME OF EXAM: 06/05/2025 3:59 PM, LOCATION [facility] INDICATION: Z97.8: Endotracheally intubated ADDITIONAL CLINICAL INFORMATION: Ordering Provider Reason For Exam: Repeat placement of ET tube(accession [id number]), verify oral gastric tube placement (accession [id number]) COMPARISON: CT chest 05/30/2025 FINDINGS/IMPRESSION: SINGLE PORTABLE UPRIGHT FRONTAL CHEST RADIOGRAPH 06/15/2025 AT 3:43 PM: Hardware, tubes, lines, miscellaneous: *Endotracheal tube has been retracted and now terminates approximately1.4 cm above the marina; recommend retraction by 1 cm for optimalpositioning. *Surgical clips superimpose the midline upper abdomen. Low lung volumes lead to bronchovascular crowding. There is mildbibasilar atelectasis. There is otherwise no focal consolidation, pleuraleffusion, or pneumothorax. Aside from atherosclerotic calcifications in the aortic arch, the mediastinal silhouette appears normal for portable technique. Heart size is within normal limits of portable technique. SINGLE FRONTAL SUPINE ABDOMINAL RADIOGRAPH 06/05/2025 06/05/2025: An enteric tube is in place and descends below the diaphragm with sideport and tip terminating within the gastric body. Within the limitations of single limited view of the upper abdomen, no dilated loops of bowel are seen. Relative lucency of the left upper quadrant is likelyprojectional. These findings were discussed in detail with the patient's careprovider, Dr. Rosita Benitez by Dr. Pascual Hagen via telephone at 7:43 AM on 06/06/2025 with readback comprehension and verification. > Dictated by Pascual Hagen MD 06/06/2025 7:36 AM > Dictated by Mold Dumper I, Jyoti Ray MD have personally reviewed and interpreted this examination/study. > Interpreting Provider: Jyoti Ray MD on 06/06/2025 11:35 AM Clyde Mann MD DIAGNOSTIC IMAGING ORDERABLES Final Result * BLOOD TYPE VERIFICATION (06/04/2025 7:46 PM CDT) ABO Rh A POS 06/04/2025 8:4 6 PM CDT [facility] Blood Bank BLOOD SPECIMEN / Unknown Lab Venipuncture / Unknown 06/04/2025 7:46 PM CDT 06/04/2025 8:12 PM CDT Jt Payton MD LAB - BLOOD BANK ORDERABLES Trena blancas Result [facility] [address] [place] [address], [facility] [phone] * TYPE + SCREEN PANEL (06/04/2025 7:25 PM CDT) Pathologist [facility] Antibody Screen NEG 8:25 PM CDT [facility] ABO Rh A POS 06/04/2025 8:25 PM CDT [facility] Blood Bank BLOOD SPECIMEN / Unknown Lab Venipuncture / Unknown 06/04/2025 7:25 PM CDT 06/04/2025 7:41 PM CDT Jt Payton MD LAB - BLOOD BANK ORDERABLES Trena blancas Result Performing Organization Address City/[facility]/ZIP Co de Phone Number [facility] [address] [place] [address], [facility] [phone] * ECHO COMPLETE W CONTRAST (06/01/2025 3:02 PM CDT) Pathologist [facility] Sinus of Valsalva 3.7 cm SS M CV FUJI PACS IVSd 2D 1.439 cm SSM CV FUJ I PACS LVIDd 4.131 cm SSM CV FUJ I PACS LVIDs 2.835 cm SSM CV FUJ I PACS LVOT diam 2.079 cm SSM CV FUJ I PACS LVPWd 0.973 cm SSM CV FUJ I PACS LV biplane EF 63.428 % SSM CV FUJI PACS LV A2C EF 66.421 % SSM CV FUJ I PACS LV A4C EF 62.115 % SSM CV FUJ I PACS LV EDV A2C 97.866 ml SSM CV FU JI PACS LV EDV A4C 93.169 ml SSM CV FU JI PACS LV ESV A2C 32.862 ml SSM CV FU JI PACS LV ESV A4C 35.297 ml SSM CV FU JI PACS LVOT pk grad 3.344 mmHg SSM CV [facility] PACS LVOT pk jose f 91.435 cm/s SSM CV F UJI PACS LVOT VTI 20.87 cm SSM CV [facility] PACS RV-lewis basal diam 3.876 cm SSM CV [facility] PACS RVIDd 2.573 cm SSM CV [facility] PACS RVOT pk jose f 72.794 cm/s SSM CV F UJI PACS RVOT VTI 13.717 cm SSM CV [facility] PACS LA size 3.931 cm SSM CV [facility] PACS LA vol BP 58.27 ml SSM CV [facility] PACS RA area 16.39 cm SSM CV [facility] PACS AV area pk jose f 1.912 cm SSM CV [facility] PACS AV area cont VTI 2.225 cm SSM CV [facility] PACS AV pk grad 9.902 mmHg SSM CV FU PACS AV mn grad 5.798 mmHg SSM CV FU PACS AV pk jose f 162.338 cm/s SSM CV [facility] PACS AV VTI 31.844 cm SSM CV [facility] PACS MV A pk jose f 71.216 cm/s SSM CV F U PACS MV E pk jose f 61.701 cm/s SSM CV F U PACS MV E' lateral jose f 7.412 cm/s SS M CV [facility] PACS MV mn grad 0.705 mmHg SSM CV FU PACS MV VTI 24.678 cm SSM CV [facility] PACS PV pk jose f 89.224 cm/s SSM CV [facility] PACS PV VTI 17.328 cm SSM CV [facility] I PACS TAPSE 2.198 cm SSM CV [facility] PACS Ascending aorta 3.206 cm SSM CV [facility] PACS IVC Diam Expiration 1.857 cm SSM CV [facility] PACS AV area index 0.953 cm /m SSM CV [facility] PACS LA vol index 0.025 l/m SSM CV [facility] PACS Dimensionless Index 0.655 unitless SSM CV [facility] PACS Myocardial strain charge 2 unitless SSM CV [facility] PACS Anatomical Region Laterality Modality Ultrasound 06/01/2025 2:07 PM CDT Narrative 06/01/2025 3:29 PM CDT Summary * The left ventricle is normal in size, with normal systolic function and an estimated ejection fraction of 63 % by biplane method of disks. Left ventricular wall motion is normal. * The left ventricular mass is normal with mildly increased wall thickness consistent with concentric remodeling. * The left ventricular diastolic function is normal. * Right ventricle is normal in size with normal systolic function. * No hemodynamically significant valve disease. * Unable to assess pulmonary pressures due to a lack of tricuspid and pulmonic regurgitation. Patient Info Name: Doron Tyson Age: 74 years : 1950 Gender: Male Ht: 70 in Wt: 236 lb BSA: 2.34 m2 HR: 60 bpm BP: 102 / 79 mmHg Heart Rhythm: Sinus Rhythm Exam Date: 06/01/2025 2:07 PM Exam Room: [facility] Patient Status: I/P Study [facility]: Adequate Exam Type: ECHO COMPLETE W CONTRAST Indications I25.10 - Triple vessel coronary artery disease Procedure(s) * A complete 2D, color Doppler, spectral Doppler, and M-Mode transthoracic echocardiogram was performed. * An Ultrasound Enhancing Agent (UEA) was utilized to enhance endocardial definition, opacify the left ventricle and further assess left ventricular function and wall motion. Contrast/Agitated Saline Contrast / Saline: Definity Amount: 1.50 ml Administered By: Alberto Reyes RDCS Reaction to Contrast: no Reason for Technically Difficult Study: poor acoustic windows, body habitus Staff Referring Physician: Rosita Martínez Ordering Provider: Rosita Martínez Attending Physician: Rosita Martínez Family Law Legal Assistant: Alberto Reyes RDCS Left Ventricle The left ventricle is normal in size. There is mildly increased left ventricular wall thickness. Left ventricular systolic function is normal with an estimated ejection fraction of 63 % by biplane method of disks. The left ventricular mass is normal with mildly increased wall thickness consistent with concentric remodeling. Left ventricular segmental wall motion is normal. The left ventricular diastolic function is normal. Right Ventricle The right ventricle is normal in size. Right ventricular systolic function is normal. Left Atrium The left atrium is normal in size with a left atrial volume index of 25 ml/m2 by BP MOD. Right Atrium The right atrium is normal in size. Atrial Septum Intact interatrial septum visualized by 2D and color Doppler imaging. Aortic Valve The aortic valve is trileaflet and mildly calcified. There is no aortic valve stenosis with a peak velocity of 1.6 m/s, mean gradient of 6 mmHg, and aortic valve area of 2.23 cm2. There is no aortic valve regurgitation. Pulmonic Valve The pulmonic valve is not well visualized, but grossly normal. There is no pulmonic valve stenosis. There is trace pulmonic regurgitation. Mitral Valve The mitral valve is grossly normal. There is no mitral valve stenosis. There is no mitral valve regurgitation. Tricuspid Valve The tricuspid valve is grossly normal. There is no tricuspid valve stenosis. There is no tricuspid valve regurgitation. Unable to assess pulmonary pressures due to a lack of tricuspid and pulmonic regurgitation. Inferior Vena Cava The inferior vena cava is normal in size (< 2.1 cm). There is > 50% collapse of the IVC upon inspiration with an estimated right atrial pressure of 3 mmHg. Pericardium/Pleural There is no pericardial effusion. Aorta The aortic root at the sinus of Valsalva is normal in size. The ascending aorta is normal in size. Measurements Left Ventricular Outflow Tract Name Value Normal LVOT 2D LVOT Diameter 2.1 cm LVOT Area 3.4 cm2 LVOT Doppler LVOT Peak Velocity 0.9 m/s LVOT Peak Gradient 3 mmHg LVOT Mean Velocity 53.76 cm/s LVOT Mean Gradient 1 mmHg LVOT VTI 20.9 cm LVOT VTI/AV VTI Ratio 0.7 LVOT Stroke Volume 71 ml LVOT Stroke Volume Index 30 ml/m2 35-58 LVOT CO 4.3 l/min LVOT CI 1.8 l/min/m2 Pulmonic Valve Name Value Normal RVOT Doppler RVOT Peak Velocity 0.7 m/s RVOT Peak Gradient 2 mmHg RVOT Mean Gradient 1 mmHg PV Doppler PV Peak Velocity 0.9 m/s PV Peak Gradient 3 mmHg PV Mean Gradient 1 mmHg PV Accel Time 91.34 ms Mitral Valve Name Value Normal MV Doppler MV Peak Gradient 2 mmHg MV Mean Gradient 1 mmHg MV DI (VTI) 1.18 MV PHT 99 ms MV Area (PHT) 2.23 cm2 4.00-5.00 MV Area (Cont Eq VTI) 2.87 cm2 MV Diastolic Function MV E Peak Velocity 0.6 m/sec MV A Peak Velocity 0.7 m/sec MV E/A 0.9 MV Decel Time (PW) 250 ms MV A Wave Duration 137 ms MV Annular TDI MV Septal e' Velocity 8 cm/s >=8 MV E/e' (Septal) 8 <=8 MV Lateral e' Velocity 7 cm/s >=10 MV E/e' (Lateral) 8 <=8 MV e' Average 8 cm/s MV E/e' (Average) 8 Tricuspid Valve Name Value Normal Estimated PAP/RSVP RA Pressure 3 mmHg <=5 TV Annular TDI TV Lateral Belen s' Velocity 11 cm/s 10-19 Aorta Name Value Normal Ascending Aorta Sinus of Valsalva Diameter 3.7 cm 2.8-4.0 Sinus of Valsalva Index 1.6 cm/m2 1.3-2.1 Asc Ao Diameter 3.2 cm 2.2-3.8 Asc Ao Diameter Index 1.4 cm/m2 1.1-1.9 Venous Name Value Normal IVC/SVC IVC Diameter 1.9 cm <=2.1 Aortic Valve Name Value Normal AV 2D/MM AV Cusp Sep (MM) 1.9 cm AV Doppler AV Peak Velocity 1.62 m/s AV Peak Gradient 10 mmHg AV Mean Gradient 6 mmHg AV VTI 32 cm AV Area (Cont Eq VTI) 2.23 cm2 >=2.00 AV Area (Cont Eq Jose F) 1.91 cm2 AV DI (VTI) 0.66 AV DI (Jose F) 0.56 AV Regurgitation 2D LVOT Area 3.39 cm2 Ventricles Name Value Normal LV Dimensions 2D/MM IVS Diastolic Thickness (2D) 1.4 cm 0.6-1.0 LVID Diastole (2D) 4.1 cm 4.2-5.8 LVPW Diastolic Thickness (2D) 1.0 cm 0.6-1.0 IVS Systolic Thickness (2D) 1.8 cm LVID Systole (2D) 2.8 cm 2.5-4.0 LVPW Systolic Thickness (2D) 1.5 cm LV Mass (2D Cubed) 188 g 88-224 LV Mass Index (2D Cubed) 81 g/m2 49-115 Relative Wall Thickness (2D) 0.47 <=0.42 LV Fractional Shortening/Ejection Fraction 2D/MM LV Fractional Shortening (2D) 31 % 25-43 LV EF (2D Teicholz) 60 % 52-72 LV Diastolic Volume (4C MOD) 93 ml LV EF (4C MOD) 62 % LV Diastolic Volume (2C MOD) 98 ml LV EF (2C MOD) 66 % LV Diastolic Volume (BP MOD) 96 ml 62-150 LV Diastolic Volume Index (BP MOD) 41 ml/m2 34-74 LV Systolic Volume (BP MOD) 35 ml 21-61 LV Systolic Volume Index (BP MOD) 15 ml/m2 11-31 LV EF (BP MOD) 63 % 52-72 LV Diastolic Length (4C) 8.4 cm LV Systolic Length (4C) 6.5 cm LV Stroke Volume (4C MOD) 58 ml RV Dimensions 2D/MM RVID Diastole (2D) 2.6 cm 2.5-3.5 RVID Systole (2D) 2.2 cm RV Basal Diastolic Dimension 3.9 cm 2.5-4.1 RV Diastolic Length (4C) 6.3 cm 5.9-8.3 TAPSE 2.2 cm >=1.7 Atria Name Value Normal LA Dimensions LA Dimension (2D) 3.9 cm 3.0-4.1 LA Dimen Index (2D) 1.7 cm/m2 LA Volume (BP MOD) 58 ml LA Volume Index (BP MOD) 25 ml/m2 16-34 RA Dimensions RA Area (4C) 16 cm2 <=18 RA Area (4C) Index 7 cm2/m2 Report Signatures Finalized by Sweetie Kang on 06/01/2025 03:28 PM Procedure Note Sweetie Kang DO - 06/01/2025 Summary * The left ventricle is normal in size, with normal systolic functionand an estimated ejection fraction of 63 % by biplane method of disks. Left ventricular wall motion is normal. * The left ventricular mass is normal with mildly increased wallthickness consistent with concentric remodeling. * The left ventricular diastolic function is normal. * Right ventricle is normal in size with normal systolic function. * No hemodynamically significant valve disease. * Unable to assess pulmonary pressures due to a lack of tricuspid and pulmonic regurgitation. Patient Info Name: Doron Tyson Age: 74 years : 1950 Gender: Male Ht: 70 in Wt: 236 lb BSA: 2.34 m2 HR: 60 bpm BP: 102 / 79 mmHg Heart Rhythm: Sinus Rhythm Exam Date: 06/01/2025 2:07 PM Exam Room: [facility] Patient Status: I/P Study [facility] Quality: Adequate Exam Type: ECHO COMPLETE W CONTRAST Indications I25.10 - Triple vessel coronary artery disease Procedure(s) * A complete 2D, color Doppler, spectral Doppler, and M-Modetransthoracic echocardiogram was performed. * An Ultrasound Enhancing Agent (UEA) was utilized to enhanceendocardial definition, opacify the left ventricle and further assess leftventricular function and wall motion. Contrast/Agitated Saline Contrast / Saline: Definity Amount: 1.50 ml Administered By: Alberto Reyes RDCS Reaction to Contrast: no Reason for Technically Difficult Study: poor acoustic windows, bodyhabitus Staff Referring Physician: Rosita Martínez Ordering Provider: Rosita Martínez Attending Physician: Rosita Martínez Family Law Legal Assistant: Alberto Reyes RDCS Left Ventricle The left ventricle is normal in size. There is mildly increased left ventricular wall thickness. Left ventricular systolic function is normalwith an estimated ejection fraction of 63 % by biplane method of disks. Theleft ventricular mass is normal with mildly increased wall thicknessconsistent with concentric remodeling. Left ventricular segmental wall motion isnormal. The left ventricular diastolic function is normal. Right Ventricle The right ventricle is normal in size. Right ventricular systolicfunction is normal. Left Atrium The left atrium is normal in size with a left atrial volume index of25 ml/m2 by BP MOD. Right Atrium The right atrium is normal in size. Atrial Septum Intact interatrial septum visualized by 2D and color Doppler imaging. Aortic Valve The aortic valve is trileaflet and mildly calcified. There is noaortic valve stenosis with a peak velocity of 1.6 m/s, mean gradient of 6 mmHg,and aortic valve area of 2.23 cm2. There is no aortic valve regurgitation. Pulmonic Valve The pulmonic valve is not well visualized, but grossly normal. There isno pulmonic valve stenosis. There is trace pulmonic regurgitation. Mitral Valve The mitral valve is grossly normal. There is no mitral valve stenosis.There is no mitral valve regurgitation. Tricuspid Valve The tricuspid valve is grossly normal. There is no tricuspid valvestenosis. There is no tricuspid valve regurgitation. Unable to assess pulmonary pressures due to a lack of tricuspid and pulmonic regurgitation. Inferior Vena Cava The inferior vena cava is normal in size (< 2.1 cm). There is > 50%collapse of the IVC upon inspiration with an estimated right atrial pressure of 3mmHg. Pericardium/Pleural There is no pericardial effusion. Aorta The aortic root at the sinus of Valsalva is normal in size. Theascending aorta is normal in size. Measurements Left Ventricular Outflow Tract Name Value Normal LVOT 2D LVOT Diameter 2.1 cm LVOT Area 3.4 cm2 LVOT Doppler LVOT Peak Velocity 0.9 m/s LVOT Peak Gradient 3 mmHg LVOT Mean Velocity 53.76 cm/s LVOT Mean Gradient 1 mmHg LVOT VTI 20.9 cm LVOT VTI/AV VTI Ratio 0.7 LVOT Stroke Volume 71 ml LVOT Stroke Volume Index 30 ml/m2 35-58 LVOT CO 4.3 l/min LVOT CI 1.8 l/min/m2 Pulmonic Valve Name Value Normal RVOT Doppler RVOT Peak Velocity 0.7 m/s RVOT Peak Gradient 2 mmHg RVOT Mean Gradient 1 mmHg PV Doppler PV Peak Velocity 0.9 m/s PV Peak Gradient 3 mmHg PV Mean Gradient 1 mmHg PV Accel Time 91.34 ms Mitral Valve Name Value Normal MV Doppler MV Peak Gradient 2 mmHg MV Mean Gradient 1 mmHg MV DI (VTI) 1.18 MV PHT 99 ms MV Area (PHT) 2.23 cm2 4.00-5.00 MV Area (Cont Eq VTI) 2.87 cm2 MV Diastolic Function MV E Peak Velocity 0.6 m/sec MV A Peak Velocity 0.7 m/sec MV E/A 0.9 MV Decel Time (PW) 250 ms MV A Wave Duration 137 ms MV Annular TDI MV Septal e' Velocity 8 cm/s >=8 MV E/e' (Septal) 8 <=8 MV Lateral e' Velocity 7 cm/s >=10 MV E/e' (Lateral) 8 <=8 MV e' Average 8 cm/s MV E/e' (Average) 8 Tricuspid Valve Name Value Normal Estimated PAP/RSVP RA Pressure 3 mmHg <=5 TV Annular TDI TV Lateral Belen s' Velocity 11 cm/s 10-19 Aorta Name Value Normal Ascending Aorta Sinus of Valsalva Diameter 3.7 cm 2.8-4.0 Sinus of Valsalva Index 1.6 cm/m2 1.3-2.1 Asc Ao Diameter 3.2 cm 2.2-3.8 Asc Ao Diameter Index 1.4 cm/m2 1.1-1.9 Venous Name Value Normal IVC/SVC IVC Diameter 1.9 cm <=2.1 Aortic Valve Name Value Normal AV 2D/MM AV Cusp Sep (MM) 1.9 cm AV Doppler AV Peak Velocity 1.62 m/s AV Peak Gradient 10 mmHg AV Mean Gradient 6 mmHg AV VTI 32 cm AV Area (Cont Eq VTI) 2.23 cm2 >=2.00 AV Area (Cont Eq Jose F) 1.91 cm2 AV DI (VTI) 0.66 AV DI (Jose F) 0.56 AV Regurgitation 2D LVOT Area 3.39 cm2 Ventricles Name Value Normal LV Dimensions 2D/MM IVS Diastolic Thickness (2D) 1.4 cm 0.6-1.0 LVID Diastole (2D) 4.1 cm 4.2-5.8 LVPW Diastolic Thickness (2D) 1.0 cm 0.6-1.0 IVS Systolic Thickness (2D) 1.8 cm LVID Systole (2D) 2.8 cm 2.5-4.0 LVPW Systolic Thickness (2D) 1.5 cm LV Mass (2D Cubed) 188 g 88-224 LV Mass Index (2D Cubed) 81 g/m2 49-115 Relative Wall Thickness (2D) 0.47 <=0.42 LV Fractional Shortening/Ejection Fraction 2D/MM LV Fractional Shortening (2D) 31 % 25-43 LV EF (2D Teicholz) 60 % 52-72 LV Diastolic Volume (4C MOD) 93 ml LV EF (4C MOD) 62 % LV Diastolic Volume (2C MOD) 98 ml LV EF (2C MOD) 66 % LV Diastolic Volume (BP MOD) 96 ml 62-150 LV Diastolic Volume Index (BP MOD) 41 ml/m2 34-74 LV Systolic Volume (BP MOD) 35 ml 21-61 LV Systolic Volume Index (BP MOD) 15 ml/m2 11-31 LV EF (BP MOD) 63 % 52-72 LV Diastolic Length (4C) 8.4 cm LV Systolic Length (4C) 6.5 cm LV Stroke Volume (4C MOD) 58 ml RV Dimensions 2D/MM RVID Diastole (2D) 2.6 cm 2.5-3.5 RVID Systole (2D) 2.2 cm RV Basal Diastolic Dimension 3.9 cm 2.5-4.1 RV Diastolic Length (4C) 6.3 cm 5.9-8.3 TAPSE 2.2 cm >=1.7 Atria Name Value Normal LA Dimensions LA Dimension (2D) 3.9 cm 3.0-4.1 LA Dimen Index (2D) 1.7 cm/m2 LA Volume (BP MOD) 58 ml LA Volume Index (BP MOD) 25 ml/m2 16-34 RA Dimensions RA Area (4C) 16 cm2 <=18 RA Area (4C) Index 7 cm2/m2 Report Signatures Finalized by Sweetie Kang on 06/01/2025 03:28 PM us Rosita Martínez APRN-PATIENT TRANSPORTATION DRIVER ECHO BLANE blancas Result * HIV-1 HIV-2 ANTIBODY + HIV P24 AG PANEL (06/01/2025 1:09 AM CDT) HIV Antigen/Antibod y 1 & 2 Non-reacti ve Non-react remy 06/01/2025 3:25 AM CDT [facility] Comment:No Laboratory eviden ce of HIV infection. Blood BLOOD SPECIMEN / Unknown Venipuncture / Unknown 06/01/2025 1:09 AM CDT 06/01/2025 1:12 AM CDT Jt Payton MD LAB - CHEMISTRY ORDERABLES Final Result [facility] [address] [place] [address], [facility] [phone] * VAS Carotid Duplex Bilateral (05/30/2025 2:15 PM CDT) Anatomical Region Laterality Modality Neck Ultrasound 05/30/2025 1:22 PM CDT Narrative Procedure Note Blake Layton MD - 05/31/2025 Nik Yeung PA-C VASCULAR LAB ORDERABLES [facility] Result - Final * VAS Bilateral Venous Mapping (05/30/2025 2:14 PM CDT) Anatomical Region Laterality Modality Upper Extremity, Lower Extremity Ultrasound 05/30/2025 1:30 PM CDT Narrative Procedure Note Blake Layton MD - 05/31/2025 Nik Yeung PA-C VASCULAR LAB ORDERABLES [facility] Result - Final * CT Chest Wo Contrast (05/30/2025 1:43 PM CDT) Anatomical Region Laterality Modality Chest Computed Tomogra phy 05/30/2025 1:55 PM CDT Impressions 05/30/2025 1:58 PM CDT IMPRESSION: 1. No significant calcifications of the tubular ascending aorta. > Interpreting Provider: Nicho Lainez MD on 05/30/2025 1:58 PM Narrative 05/30/2025 1:58 PM CDT PROCEDURE: CT CHEST WO CONTRAST DATE/TIME OF EXAM: 05/30/2025 1:44 PM CLINICAL INFORMATION: None relevant/not provided if blank. Indication: I25.10: Triple vessel coronary artery disease Additional History: COMPARISON: None. TECHNIQUE: CT of the chest was performed without intravenous contrast utilizing standard protocol. CT dose reduction technique was used, including Automated Exposure Control. FINDINGS: Lungs are clear. There is no pleural effusion or pneumothorax. No focal consolidation. The visualized thyroid gland is normal. Heart is normal in size. There is no pericardial effusion. The thoracic aorta is normal in caliber. There are calcifications of the aortic arch. No significant calcifications of the tubular ascending aorta. There are coronary artery calcifications. No chest lymphadenopathy. Visualized liver, gallbladder, spleen, pancreas, adrenal glands and bowel are normal. No suspicious osseous lytic or blastic lesion on bone windows. There is multilevel spine degenerative disc disease. Procedure Note Nicho Lainez MD - 05/30/2025 PROCEDURE: CT CHEST WO CONTRAST DATE/TIME OF EXAM: 05/30/2025 1:44 PM CLINICAL INFORMATION: None relevant/not provided if blank. Indication: I25.10: Triple vessel coronary artery disease Additional History: COMPARISON: None. TECHNIQUE: CT of the chest was performed without intravenous contrast utilizing standard protocol. CT dose reduction technique was used, including Automated ExposureControl. FINDINGS: Lungs are clear. There is no pleural effusion or pneumothorax. No focal consolidation. The visualized thyroid gland is normal. Heart is normal in size. Thereis no pericardial effusion. The thoracic aorta is normal in caliber. Thereare calcifications of the aortic arch. No significant calcifications of the tubular ascending aorta. There are coronary artery calcifications. No chest lymphadenopathy. Visualized liver, gallbladder, spleen, pancreas, adrenal glands andbowel are normal. No suspicious osseous lytic or blastic lesion on bone windows. There is multilevel spine degenerative disc disease. IMPRESSION: 1. No significant calcifications of the tubular ascending aorta. > Interpreting Provider: Nicho Lainez MD on 05/30/2025 1:58 PM Nik Yeung PA-C CT ORDERABLES Final Resul t * (ABNORMAL) TSH REFLEX FREE T4 (05/30/2025 12:26 AM CDT) Pathologist [facility] TSH 6.301(H) 0.350 - 4.940 uIU/mL 05/30/2025 1:28 AM CDT [facility] Blood BLOOD SPECIMEN / Unknown Venipuncture / Unknown 05/30/2025 12:26 AM CDT 05/30/2025 12:40 AM CDT us Jt Payton MD LAB - CHEMISTRY ORDERABLES Final Result Performing Organization Address City/[facility]/ZIP Co de Phone Number [address] [address], [place] [phone] * HEMOGLOBIN A1C (05/30/2025 12:26 AM CDT) [facility] Hemoglobin A1c 5.5 <=5.6 % 05/30/2025 9:06 AM T [facility] Estimated Average Glucose 111 mg/dL 05/30/2025 9:06 AM [facility] Comment: HbA1c Interpretation: Normal : < 5.7% Pre-diabetes: 5.7-6.4% Diabetes: Equal to or greater than 6.5% Test results diagnostic of diabetes should be repeated for confirmation. Treatment target values recommended by ADA and other clinical organizations should be used to evaluate metabolic control in patients. Reference: [place] Diabetes Association, Standards of Care in Diabetes -2020 In patients 70 years and older consider HbA1c target range of 7.0-7.5% (Reference: Jez Dhaliwal et al. JAMDA. 2012) The Sebia assay for the measurement of HbA1c is a National Glycohemoglobin Standardization Program (NGSP) certified method. Blood BLOOD SPECIMEN / Unknown Venipuncture / Unknown 05/30/2025 12:26 AM CDT 05/30/2025 12:39 AM CDT us Jt Payton MD LAB - CHEMISTRY ORDERABLES Final Result Performing Organization Address City/[facility]/ZIP Co de Phone Number [address] [address], [place] [phone] * (ABNORMAL) COMPREHENSIVE METABOLIC PANEL (05/30/2025 12:26 AM CDT) BUN 14 7 - 26 mg/dL 05/30/2025 1:11 AM [facility] Creatinine 0.81 0.71 - 1.16 mg/dL 05/30/2025 1:11 AM [facility] Sodium 140 136 - 145 mmol/L 05/30/2025 1:11 AM [facility] Potassium 3.8 3.5 - 4.5 mmol/L 05/30/2025 1:11 AM [facility] Chloride 106 98 - 107 mmol/L 05/30/2025 1:11 AM [facility] CO2 26 22 - 29 mmol/L 05/30/2025 1:11 AM [facility] Glucose 108(H) 70 - 99 mg/dL 05/30/2025 1:11 AM [facility] Calcium 8.4 8.4 - 10.2 mg/dL 05/30/2025 1:11 AM [facility] Protein Total 6.7 6.0 - 8.3 g/dL 05/30/2025 1:11 AM [facility] Albumin 3.7 3.4 - 5.0 g/dL 05/30/2025 1:11 AM [facility] Bilirubin Total 0.8 0.2 - 1.2 mg/dL 05/30/2025 1:11 AM [facility] Alkaline Phosphatase 56 40 - 150 U/L 05/30/2025 1:11 AM [facility] ALT 17 5 - 55 U/L 05/30/2025 1:11 AM [facility] AST 18 5 - 34 U/L 05/30/2025 1:11 AM [facility] Anion Gap 8 6 - 16 05/30/2025 1:11 AM [facility] BUN/Creatinine Ratio 17 7 - 23 05/30/2025 1:11 AM [facility] Osmolality Calculated 291 275 - 295 mOsm/kg 05/30/2025 1:11 AM [facility] Albumin/Globulin Ratio 1.2 1.1 - 2.3 05/30/2025 1:11 AM [facility] eGFR by CKD-EPI >90 >=90 mL/min/1.7 3 m2 05/30/2025 1:11 AM CDT [facility] Comment:Estimated Glomerular Filtration Rate (eGFR) calculated using the CKD-EPI Creatinine Equation (2020), per the National Kidney Foundation and [place] Society of Nephrology recommendations. Blood BLOOD SPECIMEN / Unknown Venipuncture / Unknown 05/30/2025 12:26 AM CDT 05/30/2025 12:39 AM CDT us Harsha Curry MD LAB - CHEMISTRY ORDERABLES Trena l Result [address] [address], [place] [phone] * PHOSPHORUS BLOOD (05/30/2025 12:26 AM CDT) Phosphorus 3.7 2.8 - 5.1 mg/dL 05/30/2025 1:11 AM CDT [facility] Blood BLOOD SPECIMEN / Unknown Venipuncture / Unknown 05/30/2025 12:26 AM CDT 05/30/2025 12:39 AM CDT us Harsha Curry MD LAB - CHEMISTRY ORDERABLES Trena l Result Performing Organization Address City/[facility]/ZIP Co de Phone Number [address] [address], [place] [phone] * T4 FREE (05/30/2025 12:26 AM CDT) T4 Free 0.7 0.7 - 1.5 ng/dL 05/30/2025 2:00 AM CDT [facility] Blood BLOOD SPECIMEN / Unknown Venipuncture / Unknown 05/30/2025 12:26 AM CDT 05/30/2025 12:40 AM CDT us Jt Payton MD LAB - CHEMISTRY ORDERABLES Final Result Performing Organization Address City/[facility]/ZIP Co de Phone Number [address] [address], [place] [phone] * LIPID PROFILE (05/30/2025 12:26 AM CDT) [facility] Signature Cholesterol Total 118 <200 mg/dL 05/30/2025 1:11 AM T [facility] HDL 42 >40 mg/dL 05/30/2025 1:11 AM [facility] Comment: ATP III Classification of HDL Cholesterol: <40 mg/dL: Considered a major risk factor. >60 mg/dL: Considered a negative risk factor. LDL Calculated 60 <100 mg/dL 05/30/2025 1:11 AM T [facility] Comment: ATP III Classification of LDL Cholesterol: <100 mg/dL: Optimal 100 - 129 mg/dL: Near Optimal/Above Optimal 130 - 159 mg/dL: Borderline High 160 - 189 mg/dL: High >190 mg/dL: Very High LDL is calculated using the Friedewald equation. Triglycerides 79 <150 mg/dL 05/30/2025 1:11 AM [facility] Comment: ATP III Classification of Triglycerides: <150 mg/dL: Normal 150 - 199 mg/dL: Borderline High 200 - 400 mg/dL: High >500 mg/dL: Very High Blood BLOOD SPECIMEN / Unknown Venipuncture / Unknown 05/30/2025 12:26 AM CDT 05/30/2025 12:39 AM CDT Jt Payton MD LAB - CHEMISTRY ORDERABLES Final Result [facility] [address] [place] [address], [facility] [phone] from Last 3 Months Insurance [employer] MEDICARE [facility] Advance Directives * Full Code (Latest Code Status on File) Date Activated Date Inactivated Comments 05/29/2025 10:03 PM 06/11/2025 3:40 PM Care Teams Cabinet And Trim Installer Relationship Specialty Start Date End Date Manuel [place] [address] PCP - General Internal Medicine 06/07/14 Shiv Magallanes DPM [address] [place] [id number] Podiatry 06/07/14
--- OUTSIDE RECORDS SUMMARY | 2025-08-29 11:21 | XMS_ITS | Encounter Summary ---
Author Organization [facility] Address [address] [place] [address] Phone Care Team Providers Care Draw String Knotter Name Role Phone Janette Smith Primary Care Pro vider Maynor Varela MD Unavailable [phone] Encounter Details Date Type Department Care Team (Late st Contact Info) Description 07/31/2025 Results Follow-Up [facility] - Primary Care - [place] [address] [place] [address] Janette Smith PAC [address] [place] [address] CT ANGIO CHEST W/WO CONTRAST WITH PP (POST PROCESSING) Social History Tobacco Use Types Packs/Day Years [...] declined 09/30/2024 How often do you attend christian or cheondoism serv ices? Patient declined 09/30/2024 Do you belong to any clubs o r organizations such as christian groups, unions, fraternal or athletic groups, or [...] Total Score - Questions 1-9 1 10/02 [facility] - Occupational [...] any time in the past 12 m [facility], were you homeless or living in a correction (including now)? Patient declined 09/30/2024 Social Connection and Isolation Panel Answer Date Recorded In a typical week, how many times do you talk on the phone with family, friends, or neighbors? Patient declined 05/25/2025 How often do you get togethe r with friends or relatives? Patient declined 05/25/2025 How often do you attend christian or cheondoism serv ices? Patient declined 05/25/2025 Do you belong to any clubs o r organizations such as christian groups, unions, fraternal or athletic groups, or [...] drinks on one occasion? Patient declined 05/25/2025 [facility] - Occupational Stress Questionnaire Answer [...] any time in the past 12 m [facility], were you homeless or living in a correction (including now)? No 05/27/2025 [facility] Utilities Answer Date Recorded In the [...] st Contact Info) Description 09/25/2025 10:00 AM ENERGY ADVISOR Appointment [facility] [address] [facility] [place] [address] Maynor Varela MD [address] [address] Discharge Disposition: Discharged to home or Selfcare 09/26/2025 2:00 PM ENERGY ADVISOR Office Visit [facility] - Cardiology - [place] [address] [place] [address] Maynor Varela MD [address] [address] 11/06/2025 10:30 AM CDT Office Visit [facility] - Primary Care - [address] [place] [address] Janette Smith, JOSE MARIA [address] [place] [address] documented as of this encounter Visit Diagnoses Not on filedocumented in this encounter Additional Health Concerns Assessment Noted Time PHQ-9 Depression Total Score: 1 10/28/19 25 9:09 AM ENERGY ADVISOR documented as of this encounter Care Teams Draw String Knotter Relationship Specialty Start Date End Date Janette Smith, JOSE MARIA PCP - General Physician Certified Solid Waste Facility Operator 10/28/24 Maynor Varela MD 2 [facility] [address] [address] Consulting Physician Cardiology 06/23/25 documented as of this encounter
--- OUTSIDE RECORDS SUMMARY | 2025-08-29 11:21 | XMS_ITS | Encounter Summary ---
Author Organization [facility] Address [address] [place] [address] Phone Care Team Providers Care Film Maker Name Role Phone Manuel Andrews MD Primary Care Provider [phone] Sunita Montano LPN Unavailable Arianne Cabrera NP Primary Care Provider [phone] Encounter Details Date Type Department Care Team (Late st Contact Info) Description 01/14/2018 Orders Only [facility] ProviderNighat MD [facility] [place] [address] Social History Tobacco Use Types Packs/Day Years Used Date Smoking Tobacco: Former Smokeless Tobacco: Never Alcohol Use Standard Drinks/Week Comments Yes 0 (1 standard drink = 0.6 oz pur e alcohol) Sex and Gender Information Value Date Recorded Sex Assigned at Not on file Legal Sex Male 8:04 PM [employer] Gender Identity Not on file Sexual Orientation [...] on filedocumented in this encounter Care Teams Film Maker Relationship Specialty Start Date End Date Manuel Andrews MD [address] [place] [address] PCP - General 01/12/12 04/13/24 Arianne Cabrera NP [address] [place] [address] PCP - General Nurse Practitioner 04/14/24 Sunita Montano, [employer]OL AND DIE REPAIR [address] [place] [address] [address] [place] [address] ACO Care Hot Air Furnace Installer And Repairer 07/11/21 07/15/21 documented as of this encounter
[2025-08-29 12:29] LABS: Cholesterol 126 mg/dL (0-200); HDL Direct 47 mg/dL; Triglycerides 91 mg/dL (<150)
[2025-08-29 12:38] LABS: Troponin I 0.016 ng/mL (0.000-0.034)
[2025-08-29 12:57] LABS: Thyroid Stimulating Hormone 3.590 uIU/mL (0.465-4.680)
[2025-08-29 13:36] LABS: Vitamin B12 > 1000.0 pg/mL (239-931)
== END 2025-08-29 10:41 | disposition home or self-care (01) ==
PROVIDERS: PCP Family Medicine; Visit Provider Family Medicine
DX: N52.9 Male erectile dysfunction, unspecified (principal); I25.10 Atherosclerotic heart disease of native coronary artery without angina pectoris; I10 Essential (primary) hypertension; R06.00 Dyspnea, unspecified; Z95.5 Presence of coronary angioplasty implant and graft
CPT/HCPCS: 36415; 71046; 80061; 82172; 82306; 82607; 82746; 84443; 84484